=== PATIENT | male | born 1985 | race African-American/Black ===

== ENCOUNTER 2018-04-06 13:00 | Emergency (ER) | payer OTHER, SELFPAY ==
[2018-04-06 13:01] VITALS: BP 153/91; PULSE 87; RESP 14; TEMP 36.7; O2SAT 99; BMI 35.0
--- NOTE | 2018-04-06 13:11 | ED.VISSUMM ---
- ER Visit Summary Date of Service: 04/06/18 Chief Complaint: [] Right fifth finger paronychia for a few days History of Present Illness: The patient is a 32 M [] those symptoms for a few days was seen in urgent care center yesterday started on Keflex no improvement he was supposed to soak the finger it sounds like he really did not soak it much comes in complaining of persistent pain he has no history of MRSA in his other complaints no trauma on exam his general medical exam is unremarkable see the template head neck chest unremarkable his right fifth digit laterally there is an obvious paronychia there. The IP joint has flexion extension as does the PIP joint the pad of the finger is uninvolved this appears to be restricted to the lateral nail fold indicates this all began a few days ago he pulled a hangnail he is not prone to infections Physical Examination: [] see above, I explained I&D to him he agreed he underwent digital block sterile prep and then I&D with no difficulty he will continue the Keflex warm soaks he will follow-up with his family doctor or Dr. Wilcox automation control technician for orthopedics and return for change in symptoms Test Results: [] Emergency Department Course and Treatment: [] Treatment Plan: [] Disposition: [] Home stable Impression: [] Fifth finger paronychia status post I&D This note was generated with [employer] dictation software. It may contain incorrect words, spelling, and punctuation that were not noted in review of the chart prior to signing ED Disposition - Plan for ED Patient: Chief Complaint: Cellulitis Referrals: Alireza Duque MD [Primary Care Provider] -
--- NOTE | 2018-04-06 13:17 | ED.DEP ---
ED Disposition - Plan for ED Patient: Chief Complaint: Cellulitis Instructions: ED Abscess IandD, ED Paronychia Ch Referrals: Alireza Duque MD [Primary Care Provider] - Tip Wilcox MD [STAFF PHYSICIAN] -
[2018-04-06 13:52] VITALS: BP 121/74; PULSE 67; RESP 16
== END 2018-04-06 13:56 | disposition home or self-care (01) ==
LOC: ED 13:56
PROVIDERS: Emergency Provider Emergency Medicine; Family Provider Family Medicine; PCP Family Medicine
DX: L03.011 Cellulitis of right finger (principal)
CPT/HCPCS: 10060; 99282

== ENCOUNTER 2018-04-17 20:46 | Emergency (ER) | payer OTHER, SELFPAY ==
[2018-04-17 20:47] VITALS: BP 136/71; PULSE 85; RESP 22; TEMP 36.8; O2SAT 98; BMI 32.7
--- NOTE | 2018-04-17 21:36 | ED.DEP ---
ED Disposition - Plan for ED Patient: Disposition: Home or Assisted Living Chief Complaint: Eye Problem Instructions: ED Allergic Conjunctivitis Prescriptions: Naphazoline HCl/Phenir Mal [Naphcon-A Eye Drops] 2 drp LEFT EYE 4X/DAY #1 bottle Referrals: Nando Lin MD [STAFF PHYSICIAN] - 3-5 Days if not improving Additional Instructions: [id number] up with eye Dr if not getting better May use the tetracaine drops for next 24 hours. No longer because they retard healing. Naphcon A eye drops for allergies.
[2018-04-17] MEDS: Tetracaine 0.5% Ophthalmic Bottle 5 DRP LEFT EYE (21:53)
--- NOTE | 2018-04-17 23:49 | ED.DCSUM_ITS ---
- ER Visit Summary Date of Service: 04/17/18 Chief Complaint: Left eye watering and itching. History of Present Illness: The patient is a 32 M no significant past history. He does have hypertension and ADHD. Patient states that he has had left eye discomfort since yesterday. Thought he may have gotten some dirt in it. Says he is having clear watering of his eye. No matting. No fever. No known trauma. He wears glasses intermittently. No contacts. Physical Examination: Well-appearing young male. Vital signs are stable afebrile. HEENT exam left eye is watering. There is minimal swelling. Minimal erythema. Slit-lamp examination was performed. I did not see any obvious foreign body or any obvious corneal abrasion. There is a national shortage of floor seen so his eye could not be sustained. Extraocular motions are intact. There is no signs of globe rupture or an irregular pupil. Both the upper and lower lids were everted. MRI unremarkable without trauma or foreign body. Test Results: None Emergency Department Course and Treatment: History and exam are consistent with a allergic conjunctivitis most likely from seasonal allergies. Treatment Plan: Naphcon-A eyedrops to help with the allergic conjunctivitis. Disposition: Discharge Impression: Conjunctivitis felt to be secondary to allergic This note was generated with [employer] dictation software. It may contain incorrect words, spelling, and punctuation that were not noted in review of the chart prior to signing ED Disposition - Plan for ED Patient: Disposition: Home or Assisted Living Chief Complaint: Eye Problem Instructions: ED Allergic Conjunctivitis Prescriptions: Naphazoline HCl/Phenir Mal [Naphcon-A Eye Drops] 2 drp LEFT EYE 4X/DAY #1 bottle Referrals: Nando Lin MD [STAFF PHYSICIAN] - 3-5 Days if not improving Additional Instructions: [id number] up with eye Dr if not getting better May use the tetracaine drops for next 24 hours. No longer because they retard healing. Naphcon A eye drops for allergies.
== END 2018-04-17 21:55 | disposition home or self-care (01) ==
PROVIDERS: Emergency Provider Emergency Medicine; Family Provider Family Medicine; PCP Family Medicine
DX: H10.12 Acute atopic conjunctivitis, left eye (principal); I10 Essential (primary) hypertension; F90.9 Attention-deficit hyperactivity disorder, unspecified type
CPT/HCPCS: 99283

== ENCOUNTER 2018-11-16 19:42 | Emergency (ER) | payer OTHER, SELFPAY ==
[2018-11-16 19:45] VITALS: BP 151/100; PULSE 103; PULSE 95; RESP 18; TEMP 36.8; O2SAT 95; BMI 42.2
--- NOTE | 2018-11-16 20:07 | ED.DCSUM_ITS ---
- ER Visit Summary Date of Service: 11/16/18 Chief Complaint: Sore throat History of Present Illness: The patient is a 32 M who presents with a sore throat and right ear pain that has been getting worse over the past week. Patient states he started taking some amoxicillin that he had leftover from a prior prescription. Patient states he has only taken this for 1 day. Patient states the pain is worse. Patient also admits to headache. Patient states he is coughing up some yellow and brown sputum. Patient states he did have an episode of blood-streaked hemoptysis yesterday. Patient admits to subjective fevers. Physical Examination: Vital signs are stable except for an elevated blood pressure 151/100. Patient is afebrile here. Patient is in no acute distress. The right tympanic membrane is erythematous. Left tympanic membrane is clear. Oral mucosa is pink and moist. Oropharynx is mildly erythematous. There are no exudates on the tonsils. There is some edema of the oropharynx but the airway is patent. There is no tenderness over the frontal or maxillary sinuses. Neck is supple. Trachea is midline. There is tender anterior cervical lymphadenopathy noted. Heart was regular rate and rhythm. Lungs are clear and equal bilateral. The remaining physical exam is within normal limits. Emergency Department Course and Treatment: Patient was given a dose of prednisone and amoxicillin here. Patient was given prescriptions for prednisone and amoxicillin. Patient was instructed to finish the prescriptions until gone. Patient was instructed to follow-up with a primary care physician in 5-7 days. Patient understood and was agreeable with the plan. All questions were answered. Disposition: Discharge home Impression: 1. Right otitis media 2. Pharyngitis This note was generated with [employer] dictation software. It may contain incorrect words, spelling, and punctuation that were not noted in review of the chart prior to signing ED Disposition - Plan for ED Patient: Disposition: Home or Assisted Living Chief Complaint: Sore Throat Diagnosis: Right otitis media, Pharyngitis Instructions: ED Otitis Media Acute Adult, ED Strep Pharyngitis Poss Prescriptions: Amoxicillin [Amoxil] 500 mg PO Q8H 10 Days #30 cap predniSONE tablet 60 mg PO DAILY #15 tab Referrals: Alireza Duque MD [Primary Care Provider] - Additional Instructions: Take all prescriptions as directed until gone.
[2018-11-16] MEDS: predniSONE 20 MG Tablet 60 MG PO (20:11)
[2018-11-16] MEDS: AMOXICILLIN 500 MG CAPSULE PO (20:11)
--- OUTSIDE RECORDS SUMMARY | 2019-02-18 13:55 | XMS RPT_ITS ---
:1985 Author Organization OHIP Care Team Providers Name Role Phone ASHLY PEÑA (MERRITT-S) Attending Unavailable KRISTY DICKSON (STEPHANIE) Attending Unavailable KRISTY DICKSON (ENGINEERING INSPECTION ASSISTANT) Attending Unavailable KRISTY DICKSON (ENGINEERING INSPECTION ASSISTANT) Attending Unavailable CARLEE ARMAS Attending Unavailable CARLEE ARMAS Referring Unavailable TUAN RABAGO Attending Unavailable CAROLINA KIM (STEPHANIE) Attending Unavailable TERESE DODD Attending Unavailable CARLEE AMRAS Referring Unavailable CARLEE ARMAS Attending Unavailable CARLEE ARMAS Referring Unavailable CARLEE ARMAS Attending Unavailable CARLEE ARMAS Referring Unavailable CARLEE ARMAS Referring Unavailable ARMAS, CARLEE S Referring Unavailable ARMAS, CARLEE S Referring Unavailable TANIA, NICOLE Bales (RES) Attending Unavailable ARMAS, CARLEE S Referring Unavailable ARMAS, CARLEE S Attending Unavailable ARMAS, CARLEE S Referring Unavailable TANIA, NICOLE C (RES) Referring Unavailable TANIA, NICOLE Bales (RES) Attending Unavailable GALDINO, CARLEE S Referring Unavailable TANIA, NICOLE Bales (RES) Referring Unavailable Delmar Osman Attending Unavailable Primay Care Physicia, No Primary Care Unavailable Alireza Duque Primary Care Unavailable Uyen Brown Attending Unavailable Alireza Duque Primary Care Unavailable Nahum Simpson Attending Unavailable PROBLEMS PROBLEMS DATE TYPE CONDITION / CODE ATTENDING STATUS SOURCE 07/08/2018 Active Other abnormal NA Active [facility] findings in Main [place] specimens from male Repository genital organs / R86.8(ICD-10) 04/24/2018 Active Generalized anxiety SKODA, Active [facility] disorder / KRISTY (ENGINEERING INSPECTION ASSISTANT) Other [place] F41.1(ICD-10) Repository 04/24/2018 Active Major depressive SKODA, Active [facility] disorder, KRISTY (ENGINEERING INSPECTION ASSISTANT) Other [place] recurrent, moderate Repository / F33.1(ICD-10) 04/24/2018 Active Cannabis SKODA, Active [facility] dependence, KRISTY (ENGINEERING INSPECTION ASSISTANT) Other [place] uncomplicated / Repository F12.20(ICD-10) 07/08/2017 Active Testicular NA Active [facility] hypofunction / [place] E29.1(ICD-10) Repository 02/04/2018 Active Unknown / TUAN RABAGO Active [facility] UNK(Unknown) [place] Repository PROCEDURES PROCEDURES No Procedure Records FoundRESULTS RESULTS EMERGENCY DEPARTMENT Observed: 11/16/2018 Status: F Source: [place] SUMMARY 8:10 PM [facility] REPOSITORY [facility] Medical Records Department [address] [place] [address] Emergency Department Summary 11/16/182001 MR#: [id number] Acct: [id number] Name: RUSS MCLAUGHLIN Rep #: [id number] : 1985 32 From: Delmar Osman DO PCP: Alireza Duque MD Status: PRE ER - ER Visit Summary Date of Service: 11/16/18 Chief Complaint: Sore throat History of Present Illness: The patient is a 32 M who presents with a sore throat and right ear pain that has been getting worse over the past week. Patient states he started taking some amoxicillin that he had leftover from a prior prescription. Patient states he has only taken this for 1 day. Patient states the pain is worse. Patient also admits to headache. Patient states he is coughing up some yellow and brown sputum. Patient states he did have an episode of blood-streaked hemoptysis yesterday. Patient admits to subjective fevers. Physical Examination: Vital signs are stable except for an elevated blood pressure 151/100. Patient is afebrile here. Patient is in no acute distress. The right tympanic membrane is erythematous. Left tympanic membrane is clear. Oral mucosa is pink and moist. Oropharynx is mildly erythematous. There are no exudates on the tonsils. There is some edema of the oropharynx but the airway is patent. There is no tenderness over the frontal or maxillary sinuses. Neck is supple. Trachea is midline. There is tender anterior cervical lymphadenopathy noted. Heart was regular rate and rhythm. Lungs are clear and equal bilateral. The remaining physical exam is within normal limits. Emergency Department Course and Treatment: Patient was given a dose of prednisone and amoxicillin here. Patient was given prescriptions for prednisone and amoxicillin. Patient was instructed to finish the prescriptions until gone. Patient was instructed to follow-up with a primary care physician in 5-7 days. Patient understood and was agreeable with the plan. All questions were answered. Disposition: Discharge home Impression: 1. Right otitis media 2. Pharyngitis This note was generated with DashLuxe dictation software. It may contain incorrect words, spelling, and punctuation that were not noted in review of the chart prior to signing ED Disposition - Plan for ED Patient: Disposition: Home or Assisted Living Chief Complaint: Sore Throat Diagnosis: Right otitis media, Pharyngitis Instructions: ED Otitis Media Acute Adult, ED Strep Pharyngitis Poss Prescriptions: Amoxicillin [Amoxil] 500 mg PO Q8H 10 Days #30 cap predniSONE tablet 60 mg PO DAILY #15 tab Referrals: Alireza Duque MD [Primary Care Provider] - Additional Instructions: Take all prescriptions as directed until gone. What to do if you have Problems For any increased pain, shortness of breath, bleeding, nausea or vomiting, chest pain, or any unexpected problems, contact your Primary Care Provider. Call [facility] ([phone]) or report to the closest Emergency Room. Call 911 if necessary. 11/16/182009 <Electronically signed by Delmar Osman DO> Date Delmar Osman DO Cosigner Signature (If Indicated): Date CC: Alireza Duque MD HOSP Observed: 10/14/2018 Status: COMPLETED Source: [place] 12:00 AM [facility] RUSS MCLAUGHLIN ([id number]) 1985 M Date Time Provider Department 10/14/18 KRISTY DICKSON ([facility] During your visit today, we recorded the following information about you: Allergies As of Date: 10/14/2018 Noted Allergy Reaction LATEX 08/25/2005 4 - Hives a AND d ointment [Other] 08/30/2005 NARCOTICS (OPIOIDS - MORPHINE RICARDA*09/25/2017 11 - Vomiting PERCOCET (OXYCODONE-ACETAMINOPHEN)09/25/2017 5 - Intolerance 14 - Other: See Comments VICODIN (HYDROCODONE-ACETAMINOPHE*09/25/2017 5 - Intolerance 11 - Vomiting Date Reviewed: 07/14/2018 Reviewed by: Tiana Reza - Fully Assessed Prescriptions as of 10/14/2018 Sig: SERTRALINE 100 MG TABLET Take 1.5 tablets by mouth onc* CLOMIPHENE CITRATE 50 MG TABL* Take 0.5 tablets by mouth jose antonio* ONDANSETRON 4 MG DISINTEGRATI* Take 1 tablet by mouth every * POTASSIUM CHLORIDE ER 20 MEQ * Take 1 tablet by mouth once d* SILDENAFIL (ANTIHYPERTENSIVE)* 3-5 tabs po prn Problem List As Of Date 10/14/2018 Noted Resolved Gynecomastia [N62] 04/02/2018 History of chlamydia [Z86.19] Primary hypogonadism in male [E29.1] Class 2 obesity due to excess calories without *INVALID FOR* Encounter Status:Closed by SHANNA PEDRAZA on 10/15/18 PROGRESS Observed: 09/24/2018 Status: COMPLETED Source: [place] 2:48 PM [facility] REPOSITORY HNO ID: [id number] Author: Natasha Monaco Service: (none) Author Type: Supervisor Communications And Signals Type: Progress Notes Filed: 09/24/2018 2:50 PM Note Text: Patient has wants Dr. Duque removed as his PCP. He states he going to [facility] to Dr. Armas. Natasha Monaco MA PROGRESS Observed: 09/22/2018 Status: COMPLETED Source: [place] 1:34 PM [facility] REPOSITORY HNO ID: [id number] Author: Russ Duque Service: (none) Author Type: Physician Type: Progress Notes Filed: 09/22/2018 1:34 PM Note Text: Orders placed. PROGRESS Observed: 09/22/2018 Status: COMPLETED Source: [place] 12:57 PM [facility] REPOSITORY HNO ID: [id number] Author: Natasha Monaco Service: (none) Author Type: Supervisor Communications And Signals Type: Progress Notes Filed: 09/24/2018 2:50 PM Note Text: JAVI TEAMRYANN DOCUMENTATION Provider Action/FYI: Patient needs appointment, needs labs ordered PSR Action/FYI: Schedule appointment Dr. Neto Guerrero has identified patient by name and date of . Team: Dr. Duque, Natasha Monaco MA ? Last Office Visit:08/13/2018 ? Next Office Visit: Visit date not found ? Last BP/Labs: Blood Pressure: Last 3 Encounter BP Readings: Date: BP: 07/14/2018 141/93 06/09/2018 117/87 06/09/2018 130/75 Lipids: Cholesterol, Total (mg/dL) Date Value 07/03/2017 139 HDL Cholesterol (mg/dL) Date Value 07/03/2017 32 LDL Cholesterol (mg/dL) Date Value 07/03/2017 81 Triglyceride (mg/dL) Date Value 07/03/2017 131 HGB A1C: No results found for: HBA1C TSH: TSH (uU/mL) Date Value 07/03/2017 1.400 ) Care Gap: HTN - Last BP NOT under 140/90 Plan: ? Confirm PCP / Status ? Type of appointment needed: Follow-up ? Consultation Appointments: No patient outreach needed at this time ? Labs, HM and Immunization: Labs: CMP HGB A1C Lipid Natasha Monaco MA CNPTOUTREACH Observed: 09/22/2018 Status: COMPLETED Source: [place] 12:00 AM [facility] REPOSITORY Patient Outreach ([facility]) RUSS MCLAUGHLIN ([id number]) 1985 M Date Time Provider Department 09/22/18 NATASHA MONACO) FAMP[facility] During your visit today, we recorded the following information about you: Natasha Monaco MA 09/24/2018 2:50 PM Signed PHMA TEAMLET DOCUMENTATION Provider Action/FYI: Patient needs appointment, needs labs ordered PSR Action/FYI: Schedule appointment Dr. Neto Guerrero has identified patient by name and date of . Team: Natasha Robles MA ? Last Office Visit:08/13/2018 ? Next Office Visit: Visit date not found ? Last BP/Labs: Blood Pressure: Last 3 Encounter BP Readings: Date: BP: 07/14/2018 141/93 06/09/2018 117/87 06/09/2018 130/75 Lipids: Cholesterol, Total (mg/dL) Date Value 07/03/2017 139 HDL Cholesterol (mg/dL) Date Value 07/03/2017 32 LDL Cholesterol (mg/dL) Date Value 07/03/2017 81 Triglyceride (mg/dL) Date Value 07/03/2017 131 HGB A1C: No results found for: HBA1C TSH: TSH (uU/mL) Date Value 07/03/2017 1.400 ) Care Gap: HTN - Last BP NOT under 140/90 Plan: ? Confirm PCP / Status ? Type of appointment needed: Follow-up ? Consultation Appointments: No patient outreach needed at this time ? Labs, HM and Immunization: Labs: CMP HGB A1C Lipid DAVON Kam MD 09/22/2018 1:34 PM Signed Orders placed. Natasha Monaco MA 09/24/2018 2:50 PM Signed Patient has wants Dr. Duque removed as his PCP. He states he going to [facility] to Dr. Armas. Natasha Monaco MA Allergies As of Date: 09/22/2018 Noted Allergy Reaction LATEX 08/25/2005 4 - Hives a AND d ointment [Other] 08/30/2005 NARCOTICS (OPIOIDS - MORPHINE RICARDA*09/25/2017 11 - Vomiting PERCOCET (OXYCODONE-ACETAMINOPHEN)09/25/2017 5 - Intolerance 14 - Other: See Comments VICODIN (HYDROCODONE-ACETAMINOPHE*09/25/2017 5 - Intolerance 11 - Vomiting Date Reviewed: 07/14/2018 Reviewed by: Tiana Herrera) Libia - Fully Assessed Reason for Visit: PHMA/Care Gap Outreach [[id number]] Primary Visit Diagnosis:Screening for diabetes mellitus [Z13.1] Other Visit Diagnosis:Screening for hyperlipidemia [Z13.220] Prescriptions as of 09/22/2018 Sig: SERTRALINE 100 MG TABLET Take 1.5 tablets by mouth onc* CLOMIPHENE CITRATE 50 MG TABL* Take 0.5 tablets by mouth jose antonio* ONDANSETRON 4 MG DISINTEGRATI* Take 1 tablet by mouth every * POTASSIUM CHLORIDE ER 20 MEQ * Take 1 tablet by mouth once d* QUETIAPINE 25 MG TABLET Take 1 tablet by mouth at bed* LISDEXAMFETAMINE 50 MG CAPSULE Take 1 capsule by mouth once * SILDENAFIL (ANTIHYPERTENSIVE)* 3-5 tabs po prn Problem List As Of Date 09/22/2018 Noted Resolved Gynecomastia [N62] 04/02/2018 History of chlamydia [Z86.19] Primary hypogonadism in male [E29.1] Class 2 obesity due to excess calories without *INVALID FOR* Encounter Status:Closed by NATASHA MONACO on 09/24/18 PROGRESS Observed: 08/01/2018 Status: COMPLETED Source: [place] 12:45 PM [facility] REPOSITORY HNO ID: [id number] Author: Natasha Duarte (Davon) Jacinda Service: (none) Author Type: Supervisor Communications And Signals Type: Progress Notes Filed: 08/01/2018 12:46 PM Note Text: Patient has appointment 08-13-[address] Duque. ENDTZ TEST Collected: 07/31/2018 Status: F Source: [place] 12:15 PM [facility] REPOSITORY TYPE CODE TESTS RESULT OUT OF REFERENCE UNITS RANGE LAB ENDTZ 0.0-0.1 M/mL High Endtz 0.8 Test SPERM DIFF (WHO) Collected: 07/31/2018 Status: F Source: [place] 12:15 PM [facility] REPOSITORY TYPE CODE TESTS RESULT OUT OF REFERENCE UNITS RANGE LAB NRMSP 14-100 % Low % Normal 0 Sperm Result Comment: [facility] Testing performed at [facility]. Contact Dr. Darrell Bah, PhD, [facility] for any questions ([phone]). LAB AMORSP 0-11 % High % Amorphous Sperm 48 LAB SMALSP 0-15 % % Small Sperm 1 LAB ABNTLS % % Abnormal Tails 51 EOSIN NIGROSIN EXC Collected: 07/31/2018 Status: F Source: [place] 12:15 PM [facility] REPOSITORY TYPE CODE TESTS RESULT OUT OF REFERENCE UNITS RANGE LAB ENSTN >58 % 60 Eosin/Nigros in Stn LAB SLNMEN Slide No. [id number] E/NSTN DIR SPERM AB IGA/IGG Collected: 07/31/2018 Status: F Source: [place] [facility] 12:15 PM [facility] PATI[facility] ONLY REPOSITORY TYPE CODE TESTS RESULT OUT OF REFERENCE UNITS RANGE LAB ABIND % IgA Percent 8 Binding LAB AAREA Area of TAILS Involv (IgA) LAB GBIND % IgG Percent 0 Binding ROUT ANALYSIS SEMEN Collected: 07/31/2018 Status: F Source: [place] 12:15 PM [facility] REPOSITORY TYPE CODE TESTS RESULT OUT OF REFERENCE UNITS RANGE LAB SEMVOL >1.5 mL Semen 2.0 Volume Result Comment: Testing performed at [facility]. Contact Dr. Darrell Bah, PhD, [facility] for any questions ([phone]). LAB SEMPH >7.2 Semen pH 7.6 LAB CONCEN >15 M/mL Concentration 20.10 LAB PCTMOT >40 % % Motile Sperm Low 7 LAB TOTCNT M Total Count Sperm 40.20 LAB TOTMT M Total Motile Sperm 2.81 LAB FPROG Forward Progression 1 Result Comment: (NOTE) INTERPRETATION: 0 = No motility 1 = Weak, twitching in place 2 = Poor to moderate, erratic 3 = Good motility, unidirectional 4 = Rapid unidirectional LAB NRMOVH >4 % Low Normal Oval 0 Head Result Comment: [facility] ABNHD % Abnormal 100 Head LAB VELOC >46 u/sec Velocity 58.9 LAB LINEAR >58 % Low Linearity 31.0 LAB COMM2 Semen Comment 2 MANUAL COUNT AND MOTILITY USED. LAB SEMCOL Semen Color OPAQUE LAB ROUNDS <1.0 M/mL Undiff 1.32 High Round Cells LAB SEMVIS Semen Viscosity NORMAL LAB SEMAGE 0-60 Min Semen Age 20 LAB CONTIM Days Abstinence 3 Time LAB NUMCNT No. of 840 Cells Counted LAB COLTIM Collection 1215 Time LAB RECTIM Receipt 1216 Time LAB SLNMSR Slide No. Semen Rout [id number] LAB OXRDP <1.36 mV/M Oxid Red 0.87 Pot(Semen) PROGRESS Observed: 07/31/2018 Status: COMPLETED Source: [place] 10:36 AM [facility] REPOSITORY HNO ID: [id number] Author: Natasha Herrera) Jacinda Service: (none) Author Type: Supervisor Communications And Signals Type: Progress Notes Filed: 08/01/2018 12:46 PM Note Text: Unable to leave a message the mailbox is full. PROGRESS Observed: 07/30/2018 Status: COMPLETED Source: [place] 12:40 PM [facility] REPOSITORY HNO ID: [id number] Author: Natasha Monaco Service: (none) Author Type: Supervisor Communications And Signals Type: Progress Notes Filed: 08/01/2018 12:46 PM Note Text: Unable to leave message, mailbox is full. Natasha Monaco MA PROGRESS Observed: 07/28/2018 Status: COMPLETED Source: [place] 3:03 PM [facility] REPOSITORY HNO ID: [id number] Author: Natasha Monaco Service: (none) Author Type: Supervisor Communications And Signals Type: Progress Notes Filed: 08/01/2018 12:46 PM Note Text: PHMA TEAMLET DOCUMENTATION Provider Action/FYI: Patient needs appointment, PSR Action/FYI: schedule appointment Teamlet has identified patient by name and date of . Team: Dr. Duque, Natasha Monaco MA, Ronnie Brown MA ? Last Office Visit:06/17/2018 ? Next Office Visit: Visit date not found ? Last BP/Labs: Blood Pressure: Last 3 Encounter BP Readings: Date: BP: 07/14/2018 141/93 06/09/2018 117/87 06/09/2018 130/75 Lipids: Cholesterol, Total (mg/dL) Date Value 07/03/2017 139 HDL Cholesterol (mg/dL) Date Value 07/03/2017 32 LDL Cholesterol (mg/dL) Date Value 07/03/2017 81 Triglyceride (mg/dL) Date Value 07/03/2017 131 HGB A1C: No results found for: HBA1C TSH: TSH (uU/mL) Date Value 07/03/2017 1.400 ) Care Gap: HTN - Last BP NOT under 140/90 Plan: ? Confirm PCP / Status ? Type of appointment needed: MARIZOL ? Consultation Appointments: No patient outreach needed at this time ? Labs, HM and Immunization: Natasha Monaco MA CNPTOUTREACH Observed: 07/28/2018 Status: COMPLETED Source: [place] 12:00 AM [facility] REPOSITORY Patient Outreach ([facility]) RUSS MCLAUGHLIN ([id number]) 1985 M Date Time Provider Department 07/28/18 NATASHA MONACO) MIKEWS During your visit today, we recorded the following information about you: Natasha Monaco MA 08/01/2018 12:46 PM Signed PHMA TEAMLET DOCUMENTATION Provider Action/FYI: Patient needs appointment, PSR Action/FYI: schedule appointment Teamlet has identified patient by name and date of . Team: Dr. Duque, Natasha Monaco MA, Ronnie Brown MA ? Last Office Visit:06/17/2018 ? Next Office Visit: Visit date not found ? Last BP/Labs: Blood Pressure: Last 3 Encounter BP Readings: Date: BP: 07/14/2018 141/93 06/09/2018 117/87 06/09/2018 130/75 Lipids: Cholesterol, Total (mg/dL) Date Value 07/03/2017 139 HDL Cholesterol (mg/dL) Date Value 07/03/2017 32 LDL Cholesterol (mg/dL) Date Value 07/03/2017 81 Triglyceride (mg/dL) Date Value 07/03/2017 131 HGB A1C: No results found for: HBA1C TSH: TSH (uU/mL) Date Value 07/03/2017 1.400 ) Care Gap: HTN - Last BP NOT under 140/90 Plan: ? Confirm PCP / Status ? Type of appointment needed: MARIZOL ? Consultation Appointments: No patient outreach needed at this time ? Labs, HM and Immunization: DAVON Kam MA 08/01/2018 12:46 PM Signed Unable to leave message, mailbox is full. DAVON Kam MA 08/01/2018 12:46 PM Signed Unable to leave a message the mailbox is full. Natasha Monaco MA 08/01/2018 12:46 PM Signed Patient has appointment 08-13-[address] Duque. Allergies As of Date: 07/28/2018 Noted Allergy Reaction LATEX 08/25/2005 4 - Hives a AND d ointment [Other] 08/30/2005 NARCOTICS (OPIOIDS - MORPHINE RICARDA*09/25/2017 11 - Vomiting PERCOCET (OXYCODONE-ACETAMINOPHEN)09/25/2017 5 - Intolerance 14 - Other: See Comments VICODIN (HYDROCODONE-ACETAMINOPHE*09/25/2017 5 - Intolerance 11 - Vomiting Date Reviewed: 07/14/2018 Reviewed by: Tiana Herrera) Libia - Fully Assessed Reason for Visit: PHMA/Care Gap Outreach [[id number]] Prescriptions as of 07/28/2018 Sig: X SERTRALINE 100 MG TABLET Take 1.5 tablets by mouth onc* CLOMIPHENE CITRATE 50 MG TABL* Take 0.5 tablets by mouth jose antonio* ONDANSETRON 4 MG DISINTEGRATI* Take 1 tablet by mouth every * POTASSIUM CHLORIDE ER 20 MEQ * Take 1 tablet by mouth once d* SILDENAFIL (ANTIHYPERTENSIVE)* 3-5 tabs po prn Problem List As Of Date 07/28/2018 Noted Resolved Gynecomastia [N62] 04/02/2018 History of chlamydia [Z86.19] Primary hypogonadism in male [E29.1] Class 2 obesity due to excess calories without *INVALID FOR* Encounter Status:Closed by NATASHA MONACO on 08/01/18 PROGRESS Observed: 07/14/2018 Status: COMPLETED Source: [place] 1:26 PM [facility] [place] REPOSITORY O ID: [id number] Author: Nicole Hamilton Service: (none) Author Type: Physician Type: Progress Notes Filed: 07/14/2018 2:02 PM Note Text: Established Patient Visit 07/14/2018 HPI: 32 year old male returns for follow up for primary infertility for 4 years. On Clomid 50mg MWF. Doing well, but has gained weight - 20 pounds. Reports much less activity though. Libido and ED has improved. On Zoloft and Seroquel Still performing timed intercourse. PMHx/PSHx: see above, otherwise unchanged Rx: reviewed and unchanged ROS: see above, otherwise unchanged Labs: Component Latest Ref Rng AND Units 07/08/2018 Prolactin 4.0 - 15.2 ng/mL 10.2 FSH 1.5 - 12.4 mU/mL 16.9 (H) LH 1.8 - 10.8 mU/mL 16.2 (H) Testosterone 193 - 824 ng/dL 892 (H) Prior Semen analyses: Component Latest Ref Rng AND Units 04/21/2018 Semen Volume >1.5 mL 3.4 Semen pH >7.2 7.8 Concentration >15 M/mL 19.20 % Motile Sperm >40 % 16 (L) Total Count Sperm M 65.28 Total Motile Sperm M 10.44 Forward Progression ? 3 Normal Oval Head >4 % 1 (L) Abnormal Head % 99 Velocity >46 u/sec 66.5 Linearity >58 % 42.0 (L) Semen Comment 2 ? CASA COUNT VERIFIED MANUALLY, MANUAL MOTILITY USED. MILD SPERM AGGLUTINATION SEEN . . . Color, Semen ? OPAQUE Undiff Rnd Cell Rout Semen Anl <1.0 M/mL 0.85 Semen Viscosity ? SLIGHT Semen Age 0 - 60 Min 25 Abstinence Time, Semen Days 3 Number Counted ? 747 Collection Time ? 1,310 Receipt Time ? 1,311 Slide No. Semen Rout ? [id number] Oxid Red Potential in Semen <1.36 mV/M Account Credited % Normal Sperm 14 - 100 % 3 (L) % Amorphous Sperm 0 - 11 % 37 (H) % Small Sperm 0 - 15 % 15 % Abnormal Tails % 44 Rounds Per 100 Sperm 0 - 3 /100SPM 1 Eosin/Nigrosin Stn >58 % 48 (L) Slide No. E/NSTN ? [id number] Endtz 0.0 - 0.1 M/mL 0.8 (H) ? 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 All medications reviewed. Low motility on SA. +smoking, pyospermia. ? Plan: - Symptomatic hypogonadism: On Clomid 50mg MWF, will decrease dose to 25mg MWF - Repeat SA with antibodies - f/u on Mychart Atul Logan MD I interviewed and examined this patient and we discussed the recommendations in detail. I agree with the findings and plan documented in his note. Visit duration 25 minutes with approximately 50% of time in counseling. Atul Logan MD CNOV Observed: 07/14/2018 Status: COMPLETED Source: [place] 1:00 PM [facility] REPOSITORY Office Visit (UROLMN) RUSS MCLAUGHLIN ([id number]) 1985 M Date Time Provider Department 07/14/18 1:00 PM NICOLE HAMILTON During your visit today, we recorded the following information about you: Temperature Pulse Blood pressure Weight 97.9 degrees 83/minute 141/93 123.2 kg Height 1.94 m Nicole Hamilton MD 07/14/2018 2:02 PM Signed Established Patient Visit 07/14/2018 HPI: 32 year old male returns for follow up for primary infertility for 4 years. On Clomid 50mg MWF. Doing well, but has gained weight - 20 pounds. Reports much less activity though. Libido and ED has improved. On Zoloft and Seroquel Still performing timed intercourse. PMHx/PSHx: see above, otherwise unchanged Rx: reviewed and unchanged ROS: see above, otherwise unchanged Labs: Component Latest Ref Rng AND Units 07/08/2018 Prolactin 4.0 - 15.2 ng/mL 10.2 FSH 1.5 - 12.4 mU/mL 16.9 (H) LH 1.8 - 10.8 mU/mL 16.2 (H) Testosterone 193 - 824 ng/dL 892 (H) Prior Semen analyses: Component Latest Ref Rng AND Units 04/21/2018 Semen Volume >1.5 mL 3.4 Semen pH >7.2 7.8 Concentration >15 M/mL 19.20 % Motile Sperm >40 % 16 (L) Total Count Sperm M 65.28 Total Motile Sperm M 10.44 Forward Progression ? 3 Normal Oval Head >4 % 1 (L) Abnormal Head % 99 Velocity >46 u/sec 66.5 Linearity >58 % 42.0 (L) Semen Comment 2 ? CASA COUNT VERIFIED MANUALLY, MANUAL MOTILITY USED. MILD SPERM AGGLUTINATION SEEN . . . Color, Semen ? OPAQUE Undiff Rnd Cell Rout Semen Anl <1.0 M/mL 0.85 Semen Viscosity ? SLIGHT Semen Age 0 - 60 Min 25 Abstinence Time, Semen Days 3 Number Counted ? 747 Collection Time ? 1,310 Receipt Time ? 1,311 Slide No. Semen Rout ? [id number] Oxid Red Potential in Semen <1.36 mV/M Account Credited % Normal Sperm 14 - 100 % 3 (L) % Amorphous Sperm 0 - 11 % 37 (H) % Small Sperm 0 - 15 % 15 % Abnormal Tails % 44 Rounds Per 100 Sperm 0 - 3 /100SPM 1 Eosin/Nigrosin Stn >58 % 48 (L) Slide No. E/NSTN ? [id number] Endtz 0.0 - 0.1 M/mL 0.8 (H) ? 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 All medications reviewed. Low motility on SA. +smoking, pyospermia. ? Plan: -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 and my own well being for others, beat myself up too much, lack trust. Don't trust well at all. MENTAL STATUS SCREEN: -General appearance: casually dressed and neatly groomed -Attitude toward evaluation: Cooperative and agreeable -Eye contact: good -Motor activity: Appropriate for age and event -Interview behavior: unremarkable -Orientation: Person, Place, Time and Situation -Memory: Recent intact, Remote intact and Immediate intact -Mood: guilty, expansive and anxious -Affect: appropriate to content, Euthymic and tearful at times. -Speech:Normal in rate, volume and prosody -Thought process: The thought process is appropriate for situation -Intellect: Above average -Insight into problems: demonstrates fair insight and extent of denial 1, believes he can give up MJ and alcohol when I put my mind to it. -Lethality to self/others? LOW -Hallucinations? None -Homicidal ideation? None -Paranoia: Yes sometimes; if I'm selling pot. Some feelings of persecution, people are out to get me. -Delusion: No Urine sample for drug screen (and hcg if female of childbearing age) collected? Yes DEGREE OF SEVERITY: see attached sheet DANIELLE Toure Intake Counselor 04/21/2018 IMPRESSIONS: DSM IV-TR diagnoses Boyd I: Alcohol Abuse 1, Cannabis Dependence 1, Bipolar Aff, Mixed-Full Remission and Post Traumatic Stress Disorder Boyd II: Deferred Boyd III: ACTIVE PROBLEM LIST History of Chlamydia Primary Hypogonadism in Male Class 2 Obesity Due to Excess Calories Without Serious Comorbidity With Body Mass Index (Bmi) of 35.0 to 35.9 in Adult Boyd IV: of family member, worries about family's well being, Stressful work situation and Relationship conflict Boyd V: 50-41: Serious symptoms or impairment. INITIAL PLAN/RECOMMENDATIONS: 1. PT is referred to [facility] IOP. 2. PT should abstain from all substances. 3. PT was provided with appt with Kristy Dickson for medication follow up on 04/24/18. 4. PT was encouraged to begin attending 12 step meetings MARIZOL. 5. FATMATA obtained to FAX copy of assessment to [facility]. Formulation of Suicide Risk: PT does not endorse SI at this time. DISPOSITION: Risks, Benefits, Alternatives, and personnel discussed with patient who consents/agrees to proceed (R/B/A/P/C). DANIELLE Toure DATE: 04/21/2018 DISCHARGE INSTRUCTION Observed: 04/18/2018 Status: F Source: [place] 12:30 AM [facility] REPOSITORY [facility] Medical Records Department [address] [place] [address] Discharge Instruction 04/17/18 2136 MR#: [id number] Acct: [id number] Name: RUSS MCLAUGHLIN Rep #: [id number] : 1985 32 From: Nahum Simpson MD PCP: Alireza Duque MD Status: DEP ER ED Disposition - Plan for ED Patient: Disposition: Home or Assisted Living Chief Complaint: Eye Problem Instructions: ED Allergic Conjunctivitis Prescriptions: Naphazoline HCl/Phenir Mal [Naphcon-A Eye Drops] 2 drp LEFT EYE 4X/DAY #1 bottle Referrals: Nando Lin MD [STAFF PHYSICIAN] - 3-5 Days if not improving Additional Instructions: [id number] up with eye Dr if not getting better May use the tetracaine drops for next 24 hours. No longer because they retard healing. Naphcon A eye drops for allergies. What to do if you have Problems For any increased pain, shortness of breath, bleeding, nausea or vomiting, chest pain, or any unexpected problems, contact your Primary Care Provider. Call [facility] ([phone]) or report to the closest Emergency Room. Call 911 if necessary. 04/18/18 0030 <Electronically signed by Nahum Simpson MD> Date Nahum Simpson MD Cosigner Signature (If Indicated): Date CC: Alireza Duque MD EMERGENCY DEPARTMENT Observed: 04/18/2018 Status: F Source: [place] SUMMARY 12:30 AM [facility] REPOSITORY [facility] Medical Records Department [address] [place] [id number] Emergency Department Summary 04/17/18 2347 MR#: [id number] Acct: [id number] Name: RUSS MCLAUGHLIN Rep #: [id number] : 1985 32 From: Nahum Simpson MD PCP: Alireza Duque MD Status: DEP ER - ER Visit Summary Date of Service: 04/17/18 Chief Complaint: Left eye watering and itching. History of Present Illness: The patient is a 32 M no significant past history. He does have hypertension and ADHD. Patient states that he has had left eye discomfort since yesterday. Thought he may have gotten some dirt in it. Says he is having clear watering of his eye. No matting. No fever. No known trauma. He wears glasses intermittently. No contacts. Physical Examination: Well-appearing young male. Vital signs are stable afebrile. HEENT exam left eye is watering. There is minimal swelling. Minimal erythema. Slit-lamp examination was performed. I did not see any obvious foreign body or any obvious corneal abrasion. There is a national shortage of floor seen so his eye could not be sustained. Extraocular motions are intact. There is no signs of globe rupture or an irregular pupil. Both the upper and lower lids were everted. MRI unremarkable without trauma or foreign body. Test Results: None Emergency Department Course and Treatment: History and exam are consistent with a allergic conjunctivitis most likely from seasonal allergies. Treatment Plan: Naphcon-A eyedrops to help with the allergic conjunctivitis. Disposition: Discharge Impression: Conjunctivitis felt to be secondary to allergic This note was generated with DashLuxe dictation software. It may contain incorrect words, spelling, and punctuation that were not noted in review of the chart prior to signing ED Disposition - Plan for ED Patient: Disposition: Home or Assisted Living Chief Complaint: Eye Problem Instructions: ED Allergic Conjunctivitis Prescriptions: Naphazoline HCl/Phenir Mal [Naphcon-A Eye Drops] 2 drp LEFT EYE 4X/DAY #1 bottle Referrals: Nando Lin MD [STAFF PHYSICIAN] - 3-5 Days if not improving Additional Instructions: [id number] up with eye Dr if not getting better May use the tetracaine drops for next 24 hours. No longer because they retard healing. Naphcon A eye drops for allergies. What to do if you have Problems For any increased pain, shortness of breath, bleeding, nausea or vomiting, chest pain, or any unexpected problems, contact your Primary Care Provider. Call [facility] ([phone]) or report to the closest Emergency Room. Call 911 if necessary. 04/18/18 0030 <Electronically signed by Nahum Simpson MD> Date Nahum Simpson MD Cosigner Signature (If Indicated): Date CC: Alireza Duque MD PROGRESS Observed: 04/17/2018 Status: COMPLETED Source: [place] 10:38 AM [facility] REPOSITORY O ID: [id number] Author: Carlee Armas Service: (none) Author Type: Physician Type: Progress Notes Filed: 04/17/2018 10:50 AM Note Text: Russ Mclaughlin is here today for a following for weight management. S: Being followed for the following comorbidities: Other gynecomastia Ion phentermine 37.5 mg/dTolerating supplements Seeing dietitian regularly Exercising: about to start, regularly for 60 min per day for 7 days/week. Type of exercise: weights Status of comorbidities: Total weight lost thus far: 25 pounds Started program on : the last BMI'S: Body mass index is 34.61 kg/m?. the last CMP : Glucose (mg/dL) Date Value 07/03/2017 89 Potassium (mmol/L) Date Value 07/03/2017 4.0 Sodium (mmol/L) Date Value 07/03/2017 141 Chloride (mmol/L) Date Value 07/03/2017 101 CO2 (mmol/L) Date Value 07/03/2017 20 Creatinine (mg/dL) Date Value 07/03/2017 0.80 BUN (mg/dL) Date Value 07/03/2017 9 Anion Gap (mmol/L) Date Value 07/03/2017 20 Calcium (mg/dL) Date Value 07/03/2017 9.2 Protein, Total (g/dL) Date Value 07/03/2017 7.0 Albumin (g/dL) Date Value 07/03/2017 4.2 Bilirubin, Total (mg/dL) Date Value 07/03/2017 0.2 Alkaline Phosphatase (U/L) Date Value 07/03/2017 65 AST (U/L) Date Value 07/03/2017 27 ALT (U/L) Date Value 07/03/2017 25 O: BP 133/77 (BP Site: Left Arm, BP Position: Sitting, BP Cuff Size: Large Adult) Pulse 84 Wt 115.8 kg (255 lb 3.2 oz) BMI 34.61 kg/m? AppearanceObese Eyes normal, no erythema Neck Supple, no adenopathy; thyroid symmetric, normal size, no bruits Heart RRR with normal S1 and S2, no murmurs, no gallops, no JVD appreciated Lungs clear to auscultation Abd bowel sounds normoactive, no bruits, soft, non-tender, non-distended, without organomegaly or palpable masses, no tenderness to palpation Extremities Normal, No deformities, No skin discoloration, No edema and Normal pulses bilaterally. Neuro Awake, alert and oriented x 3, No involuntary motions. and Reflexes symmetrical Skin Skin color, texture, turgor normal, no suspicious rashes or lesions comorbidities: ACTIVE PROBLEM LIST History of Chlamydia Primary Hypogonadism in Male Class 2 Obesity Due to Excess Calories Without Serious Comorbidity With Body Mass Index (Bmi) of 35.0 to 35.9 in Adult PLAN: phentermine 37.5 mg/d RTC : 1 month Carlee Armas MD CNOV Observed: 04/17/2018 Status: COMPLETED Source: [place] 9:25 AM [facility] REPOSITORY Office Visit (ENDCMN) RUSS MCLAUGHLIN ([id number]) 1985 M Date Time Provider Department 04/17/18 9:25 AM CARLEE ARMAS ENDCMN During your visit today, we recorded the following information about you: Pulse Blood pressure Weight 84/minute 133/77 115.8 kg Ada Womack LPN 04/17/2018 10:07 AM Signed Thank you for choosing the [facility] Department of Endocrinology, Diabetes and Metabolism. Being able to provide excellent health care has allowed us to be # 3 in the country according to [employer]. Did you know that you need to call 48 hours in advance of your scheduled visit, if you are unable to make your appointment? The [facility] [place] thanks you for your commitment, because patients not showing to their appointment results in a lost opportunity for patients to receive world class health care at the [facility]. To Cancel an appointment, please choose one of the following: - Call the Appointment Call Center at [phone] - From [facility], Go to Appointments ? Cancel Appts If cancelling, consider your need to reschedule to prevent further delays in your care. To Schedule an appointment, please choose one of the following: - Call the Appointment Call Center at [phone] - From [facility], Go to Appointments ? Request an Appt Carlee Armas MD 04/17/2018 10:50 AM Signed Russ Mclaughlin is here today for a following for weight management. S: Being followed for the following comorbidities: Other gynecomastia Ion phentermine 37.5 mg/dTolerating supplements Seeing dietitian regularly Exercising: about to start, regularly for 60 min per day for 7 days/week. Type of exercise: weights Status of comorbidities: Total weight lost thus far: 25 pounds Started program on : the last BMI'S: Body mass index is 34.61 kg/m?. the last CMP : Glucose (mg/dL) Date Value 07/03/2017 89 Potassium (mmol/L) Date Value 07/03/2017 4.0 Sodium (mmol/L) Date Value 07/03/2017 141 Chloride (mmol/L) Date Value 07/03/2017 101 CO2 (mmol/L) Date Value 07/03/2017 20 Creatinine (mg/dL) Date Value 07/03/2017 0.80 BUN (mg/dL) Date Value 07/03/2017 9 Anion Gap (mmol/L) Date Value 07/03/2017 20 Calcium (mg/dL) Date Value 07/03/2017 9.2 Protein, Total (g/dL) Date Value 07/03/2017 7.0 Albumin (g/dL) Date Value 07/03/2017 4.2 Bilirubin, Total (mg/dL) Date Value 07/03/2017 0.2 Alkaline Phosphatase (U/L) Date Value 07/03/2017 65 AST (U/L) Date Value 07/03/2017 27 ALT (U/L) Date Value 07/03/2017 25 O: BP 133/77 (BP Site: Left Arm, BP Position: Sitting, BP Cuff Size: Large Adult) Pulse 84 Wt 115.8 kg (255 lb 3.2 oz) BMI 34.61 kg/m? AppearanceObese Eyes normal, no erythema Neck Supple, no adenopathy; thyroid symmetric, normal size, no bruits Heart RRR with normal S1 and S2, no murmurs, no gallops, no JVD appreciated Lungs clear to auscultation Abd bowel sounds normoactive, no bruits, soft, non-tender, non-distended, without organomegaly or palpable masses, no tenderness to palpation Extremities Normal, No deformities, No skin discoloration, No edema and Normal pulses bilaterally. Neuro Awake, alert and oriented x 3, No involuntary motions. and Reflexes symmetrical Skin Skin color, texture, turgor normal, no suspicious rashes or lesions comorbidities: ACTIVE PROBLEM LIST History of Chlamydia Primary Hypogonadism in Male Class 2 Obesity Due to Excess Calories Without Serious Comorbidity With Body Mass Index (Bmi) of 35.0 to 35.9 in Adult PLAN: phentermine 37.5 mg/d RTC : 1 month MD Carlee Hodges MD 04/17/2018 10:54 AM Signed Addended by: CARLEE ARMAS MD on: 04/17/2018 10:54 AM Modules accepted: Orders Referring Provider: CARLEE ARMAS [[id number]] Allergies As of Date: 04/17/2018 Noted Allergy Reaction LATEX 08/25/2005 4 - Hives a AND d ointment [Other] 08/30/2005 NARCOTICS (OPIOIDS - MORPHINE RICARDA*09/25/2017 11 - Vomiting PERCOCET (OXYCODONE-ACETAMINOPHEN)09/25/2017 5 - Intolerance 14 - Other: See Comments VICODIN (HYDROCODONE-ACETAMINOPHE*09/25/2017 5 - Intolerance 11 - Vomiting Date Reviewed: 04/17/2018 Reviewed by: Carlee Armas - Fully Assessed Reason for Visit: weight management [Other] Rx Refills [128] Reason For Visit History Recorded Primary Visit Diagnosis:Class 1 obesity due to excess calories with serious comorbidity and body mass index (BMI) of 34.0 to 34.9 in adult [E66.09, Z68.34] Other Visit Diagnoses:Explosive personality disorder [F60.3] Primary hypogonadism in male [E29.1] Binge eating disorder [F50.81] Order(s):CONSULT TO PSYCHIATRY [9035] Order #: [id number]: 1 TESTOSTERONE TOTAL [SQTESTO] Order #: [id number] FUTURE SEMEN ANALYSIS COMPL [SQSEMENR] Order #: [id number]: 1 FUTURE lisdexamfetamine (VYVANSE) 50 mg capsuleTake 1 capsule by mouth once daily for 30 days.Disp: 30 capsuleRfl: 0 Prescriptions as of 04/17/2018 Sig: LISDEXAMFETAMINE 50 MG CAPSULE Take 1 capsule by mouth once * SILDENAFIL (ANTIHYPERTENSIVE)* 3-5 tabs po prn ONDANSETRON 4 MG DISINTEGRATI* Take 1 tablet by mouth every * Problem List As Of Date 04/17/2018 Noted Resolved Gynecomastia [N62] 04/02/2018 History of chlamydia [Z86.19] Primary hypogonadism in male [E29.1] Class 2 obesity due to excess calories without *INVALID FOR* Other instructions from your clinician: Thank you for choosing the [facility] Department of Endocrinology, Diabetes and Metabolism. Being able to provide excellent health care has allowed us to be # 3 in the country according to [employer]. Did you know that you need to call 48 hours in advance of your scheduled visit, if you are unable to make your appointment? The [facility] [place] thanks you for your commitment, because patients not showing to their appointment results in a lost opportunity for patients to receive [facility] health care at the [facility]. To Cancel an appointment, please choose one of the following: - Call the Appointment Call Center at [phone] - From [facility], Go to Appointments ? Cancel Appts If cancelling, consider your need to reschedule to prevent further delays in your care. To Schedule an appointment, please choose one of the following: - Call the Appointment Call Center at [phone] - From [facility], Go to Appointments ? Request an Appt Prescriptions ordered this encounter Disp Refills Start End PHENTERMINE 37.5 MG TABLET 30 t* 0 04/17/2018 04/17/2018 Class: Print RX Cmt: bmi 34.6 Route: ORAL Sig: Take 1 tablet by mouth once daily for 30 days. LISDEXAMFETAMINE 50 MG CAPSULE 30 c* 0 04/17/2018 05/17/2018 Class: Print RX Route: ORAL Sig: Take 1 capsule by mouth once daily for 30 days. Medications Discontinued During This Encounter Phentermine HCl 37.5 mg tablet 30 t* 0 04/02/2018 04/17/2018 Class: Print RX Route: ORAL Sig: Take 1 tablet by mouth once daily for 30 days. Disc: Reason for discontinue is not on file. Phentermine HCl 37.5 mg tablet 30 t* 0 04/17/2018 04/17/2018 Class: Print RX Cmt: bmi 34.6 Route: ORAL Sig: Take 1 tablet by mouth once daily for 30 days. Disc: Reason for discontinue is not on file. Encounter Status:Closed by CARLEE ARMAS MD on 04/17/18 EMERGENCY DEPARTMENT Observed: 04/06/2018 Status: F Source: [place] SUMMARY 3:12 PM [facility] REPOSITORY [facility] Medical Records Department [address] [place] [address] Emergency Department Summary 04/06/18 1311 MR#: [id number] Acct: [id number] Name: RUSS MCLAUGHLIN Rep #: [id number] : 1985 32 From: Uyen Brown MD PCP: Alireza Duque MD Status: DEP ER - ER Visit Summary Date of Service: 04/06/18 Chief Complaint: [] Right fifth finger paronychia for a few days History of Present Illness: The patient is a 32 M [] those symptoms for a few days was seen in urgent care center yesterday started on Keflex no improvement he was supposed to soak the finger it sounds like he really did not soak it much comes in complaining of persistent pain he has no history of MRSA in his other complaints no trauma on exam his general medical exam is unremarkable see the template head neck chest unremarkable his right fifth digit laterally there is an obvious paronychia there. The IP joint has flexion extension as does the PIP joint the pad of the finger is uninvolved this appears to be restricted to the lateral nail fold indicates this all began a few days ago he pulled a hangnail he is not prone to infections Physical Examination: [] see above, I explained I AND D to him he agreed he underwent digital block sterile prep and then I AND D with no difficulty he will continue the Keflex warm soaks he will follow-up with his family doctor or Dr. Wilcox manager combination for orthopedics and return for change in symptoms Test Results: [] Emergency Department Course and Treatment: [] Treatment Plan: [] Disposition: [] Home stable Impression: [] Fifth finger paronychia status post I AND D This note was generated with DashLuxe dictation software. It may contain incorrect words, spelling, and punctuation that were not noted in review of the chart prior to signing ED Disposition - Plan for ED Patient: Chief Complaint: Cellulitis Referrals: Alireza Duque MD [Primary Care Provider] - What to do if you have Problems For any increased pain, shortness of breath, bleeding, nausea or vomiting, chest pain, or any unexpected problems, contact your Primary Care Provider. Call [facility] ([phone]) or report to the closest Emergency Room. Call 911 if necessary. 04/06/18 1512 <Electronically signed by Uyen Brown MD> Date Uyen Brown MD Cosigner Signature (If Indicated): Date CC: Alireza Duque MD DISCHARGE INSTRUCTION Observed: 04/06/2018 Status: F Source: [place] 1:18 PM [facility] REPOSITORY [facility] Medical Records Department [address] [place] [address] Discharge Instruction 04/06/18 1317 MR#: [id number] Acct: [id number] Name: RUSS MCLAUGHLIN Rep #: [id number] : 1985 32 From: Uyen Brown MD PCP: Alireza Duque MD Status: PRE ER ED Disposition - Plan for ED Patient: Chief Complaint: Cellulitis Instructions: ED Abscess IandD, ED Paronychia Ch Referrals: Alireza Duque MD [Primary Care Provider] - Tip Wilcox MD [STAFF PHYSICIAN] - What to do if you have Problems For any increased pain, shortness of breath, bleeding, nausea or vomiting, chest pain, or any unexpected problems, contact your Primary Care Provider. Call [facility] ([phone]) or report to the closest Emergency Room. Call 911 if necessary. 04/06/18 1318 <Electronically signed by Uyen Brown MD> Date Uyen Brown MD Cosigner Signature (If Indicated): Date CC: Alireza Duque MD PROGRESS Observed: 04/02/2018 Status: COMPLETED Source: [place] 1:58 PM [facility] REPOSITORY O ID: [id number] Author: Carlee Armas Service: (none) Author Type: Physician Type: Progress Notes Filed: 04/02/2018 2:19 PM Note Text: Russ Mclaughlin is here today for a following for weight management. S: Being followed for the following comorbidities: gynecomastia fixed by surgery in september Exercising: about to start, regularly for 45 min per day for 7 days/week. Type of exercise: walking ok lifting Support at home: y, any stressors at home: n Support at work: y Status of comorbidities: Total weight lost thus far: 21 pounds Started program on : 01/2018 the last BMI'S: Body mass index is 35.28 kg/m?. the last CMP : Glucose (mg/dL) Date Value 07/03/2017 89 Potassium (mmol/L) Date Value 07/03/2017 4.0 Sodium (mmol/L) Date Value 07/03/2017 141 Chloride (mmol/L) Date Value 07/03/2017 101 CO2 (mmol/L) Date Value 07/03/2017 20 Creatinine (mg/dL) Date Value 07/03/2017 0.80 BUN (mg/dL) Date Value 07/03/2017 9 Anion Gap (mmol/L) Date Value 07/03/2017 20 Calcium (mg/dL) Date Value 07/03/2017 9.2 Protein, Total (g/dL) Date Value 07/03/2017 7.0 Albumin (g/dL) Date Value 07/03/2017 4.2 Bilirubin, Total (mg/dL) Date Value 07/03/2017 0.2 Alkaline Phosphatase (U/L) Date Value 07/03/2017 65 AST (U/L) Date Value 07/03/2017 27 ALT (U/L) Date Value 07/03/2017 25 O: physical: BP 137/85 Pulse 71 Wt 118 kg (260 lb 1.6 oz) BMI 35.28 kg/m? Appearance Obese Eyes normal, no erythema Neck Supple, no adenopathy; thyroid symmetric, normal size, no bruits Heart RRR with normal S1 and S2, no murmurs, no gallops, no JVD appreciated Lungs clear to auscultation Abd bowel sounds normoactive, no bruits, soft, non-tender, non-distended, without organomegaly or palpable masses, no tenderness to palpation Extremities Normal, No deformities, No skin discoloration, No edema and Normal pulses bilaterally. Neuro Awake, alert and oriented x 3, No involuntary motions. and Reflexes symmetrical Skin Skin color, texture, turgor normal, no suspicious rashes or lesions A: obesity binge eating PLAN: renew phentermine 37.5 mg/d testosterone prolactin free testosterone now RTC : 1 month Carlee Armas MD CNOV Observed: 04/02/2018 Status: COMPLETED Source: [place] 1:00 PM [facility] REPOSITORY Office Visit (ENDOMN) RUSS MCLAUGHLIN ([id number]) 1985 M Date Time Provider Department 04/02/18 1:00 PM CARLEE ARMAS ENDOMN During your visit today, we recorded the following information about you: Pulse Blood pressure Weight 71/minute 137/85 118 kg Jayne Santana Ma 04/02/2018 1:31 PM Signed Thank you for choosing the [facility] Department of Endocrinology, Diabetes and Metabolism. Being able to provide excellent health care has allowed us to be # 3 in the country according to [employer]. Did you know that you need to call 48 hours in advance of your scheduled visit, if you are unable to make your appointment? The [facility] [place] thanks you for your commitment, because patients not showing to their appointment results in a lost opportunity for patients to receive [facility] health care at the [facility]. To Cancel an appointment, please choose one of the following: - Call the Appointment Call Center at [phone] - From [facility], Go to Appointments ? Cancel Appts If cancelling, consider your need to reschedule to prevent further delays in your care. To Schedule an appointment, please choose one of the following: - Call the Appointment Call Center at [phone] - From [facility], Go to Appointments ? Request an Appt Carlee Armas MD 04/02/2018 2:19 PM Signed Russ Mclaughlin is here today for a following for weight management. S: Being followed for the following comorbidities: gynecomastia fixed by surgery in september Exercising: about to start, regularly for 45 min per day for 7 days/week. Type of exercise: walking ok lifting Support at home: y, any stressors at home: n Support at work: y Status of comorbidities: Total weight lost thus far: 21 pounds Started program on : 01/2018 the last BMI'S: Body mass index is 35.28 kg/m?. the last CMP : Glucose (mg/dL) Date Value 07/03/2017 89 Potassium (mmol/L) Date Value 07/03/2017 4.0 Sodium (mmol/L) Date Value 07/03/2017 141 Chloride (mmol/L) Date Value 07/03/2017 101 CO2 (mmol/L) Date Value 07/03/2017 20 Creatinine (mg/dL) Date Value 07/03/2017 0.80 BUN (mg/dL) Date Value 07/03/2017 9 Anion Gap (mmol/L) Date Value 07/03/2017 20 Calcium (mg/dL) Date Value 07/03/2017 9.2 Protein, Total (g/dL) Date Value 07/03/2017 7.0 Albumin (g/dL) Date Value 07/03/2017 4.2 Bilirubin, Total (mg/dL) Date Value 07/03/2017 0.2 Alkaline Phosphatase (U/L) Date Value 07/03/2017 65 AST (U/L) Date Value 07/03/2017 27 ALT (U/L) Date Value 07/03/2017 25 O: physical: BP 137/85 Pulse 71 Wt 118 kg (260 lb 1.6 oz) BMI 35.28 kg/m? Appearance Obese Eyes normal, no erythema Neck Supple, no adenopathy; thyroid symmetric, normal size, no bruits Heart RRR with normal S1 and S2, no murmurs, no gallops, no JVD appreciated Lungs clear to auscultation Abd bowel sounds normoactive, no bruits, soft, non-tender, non-distended, without organomegaly or palpable masses, no tenderness to palpation Extremities Normal, No deformities, No skin discoloration, No edema and Normal pulses bilaterally. Neuro Awake, alert and oriented x 3, No involuntary motions. and Reflexes symmetrical Skin Skin color, texture, turgor normal, no suspicious rashes or lesions A: obesity binge eating PLAN: renew phentermine 37.5 mg/d testosterone prolactin free testosterone now RTC : 1 month Carlee Armas MD Referring Provider: CARLEE ARMAS [[id number]] Allergies As of Date: 04/02/2018 Noted Allergy Reaction LATEX 08/25/2005 4 - Hives a AND d ointment [Other] 08/30/2005 NARCOTICS (OPIOIDS - MORPHINE RICARDA*09/25/2017 11 - Vomiting PERCOCET (OXYCODONE-ACETAMINOPHEN)09/25/2017 5 - Intolerance 14 - Other: See Comments VICODIN (HYDROCODONE-ACETAMINOPHE*09/25/2017 5 - Intolerance 11 - Vomiting Date Reviewed: 04/02/2018 Reviewed by: Carlee Armas - Fully Assessed Reason for Visit: Recheck [92] Primary Visit Diagnosis:Class 2 obesity due to excess calories without serious comorbidity with body mass index (BMI) of 35.0 to 35.9 in adult [E66.09, Z68.35] Order(s):Phentermine HCl 37.5 mg tabletTake 1 tablet by mouth once daily for 30 days.Disp: 30 tabletRfl: 0 sildenafil, antihypertensive, (REVATIO) 20 mg tablet3- 5 tabs po prnDisp: 90 tabletRfl: 3 Prescriptions as of 04/02/2018 Sig: PHENTERMINE 37.5 MG TABLET Take 1 tablet by mouth once d* SILDENAFIL (ANTIHYPERTENSIVE)* 3-5 tabs po prn ONDANSETRON 4 MG DISINTEGRATI* Take 1 tablet by mouth every * Problem List As Of Date 04/02/2018 Noted Resolved Gynecomastia [N62] 04/02/2018 History of chlamydia [Z86.19] Primary hypogonadism in male [E29.1] Class 2 obesity due to excess calories without *INVALID FOR* Other instructions from your clinician: Thank you for choosing the [facility] Department of Endocrinology, Diabetes and Metabolism. Being able to provide excellent health care has allowed us to be # 3 in the country according to [employer]. Did you know that you need to call 48 hours in advance of your scheduled visit, if you are unable to make your appointment? The [facility] [place] thanks you for your commitment, because patients not showing to their appointment results in a lost opportunity for patients to receive world class health care at the [facility]. To Cancel an appointment, please choose one of the following: - Call the Appointment Call Center at [phone] - From [facility], Go to Appointments ? Cancel Appts If cancelling, consider your need to reschedule to prevent further delays in your care. To Schedule an appointment, please choose one of the following: - Call the Appointment Call Center at [phone] - From [facility], Go to Appointments ? Request an Appt Prescriptions ordered this encounter Disp Refills Start End PHENTERMINE 37.5 MG TABLET 30 t* 0 04/02/2018 05/02/2018 Class: Print RX Route: ORAL Sig: Take 1 tablet by mouth once daily for 30 days. SILDENAFIL (ANTIHYPERTENSIVE) 20 MG * 90 t* 3 04/02/2018 04/02/2018 Class: Print RX Si-5 tabs po prn SILDENAFIL (ANTIHYPERTENSIVE) 20 MG * 90 t* 3 04/02/2018 Class: Med Update Si-5 tabs po prn Medications Discontinued During This Encounter sildenafil, antihypertensive, (REVAT* 90 t* 3 11/01/2017 04/02/2018 Si-5 tabs po prn Indications: ERECTILE DYSFUNCTION Disc: Reason for discontinue is not on file. sildenafil, antihypertensive, (REVAT* 90 t* 3 04/02/2018 04/02/2018 Class: Print RX Si-5 tabs po prn Disc: Reason for discontinue is not on file. Encounter Status:Closed by CARLEE ARMAS MD on 04/02/18 PROGRESS Observed: 02/21/2018 Status: COMPLETED Source: [place] 3:00 PM [facility] REPOSITORY HNO ID: [id number] Author: Terese Dodd Service: (none) Author Type: Physician Type: Progress Notes Filed: 02/23/2018 9:03 PM Note Text: Endocrinology Medical Weight Management Follow-up note Date of Service: 02/21/2018 SUBJECTIVE: Russ Mclaughlin is a 32 year old male who presents today for evaluation of obesity and comorbidities associated with this disease. Russ Mclaughlin identified his weight becoming a problem in childhood. The rate of weight gain was described as gradual over years.The patient has a family history Positive for obesity. He considers an ideal weight to be 210 and has lost 10 lbs since 1 month ago. Russ Mclaughlin has tried self-directed dieting and low calorie diet in the past which has not been successful. Russ Mclaughlin believes that the following may be related to his weight gain:eating the wrong foods, portion size, increased appetite, skipping meals and lack of sleep. He has been seen at [facility] for weight management in the past. The patient saw doctor Galdino on 01/27 and is taking Phentermine and has found it to be effective in assisting with his weight loss. He is not free from adverse side effects of the medication. Last 3 Encounter Wt Readings: Date: Wt: 02/21/2018 123.4 kg (272 lb 1.6 oz) 02/06/2018 125.6 kg (277 lb) 01/27/2018 127.9 kg (282 lb) Diet: Low calories Russ Mclaughlin is not having difficulties following the diet. He eats fast food only occasionally now and makes better choices. Breakfast:bowl of cereal or 2 rice cakes or eggs Lunch:skips often or chicken with vegetables or fahitas Dinner: brussels sprouts, asparagus with fish, chicken Snacks: carrot, celery, rice cakes Hydration: she/he usually drinks water Russ Mclaughlin does drink alcohol. The patient has 12 cans of beer per week. Appetite: Patients appetite has been controlled. Physical Activity: Patient is exercising at this time. He walks, runs and cardio 5 days a week for > 60 minutes. 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 Stress: The patient does not have a lot of stress. ALLERGIES Allergen Reactions - Latex Hives - Narcotics [Opioids * Vomiting - Percocet [Oxycodone* Intolerance, Other: See Comments - Vicodin [Hydrocodon* Intolerance, Vomiting - A AND D Ointment [Oth* ondansetron orally disintegrating (ZOFRAN ODT) 4 mg disintegrating tablet Take 1 tablet by mouth every 8 hours as needed for Nausea/Vomiting. Phentermine HCl 37.5 mg tablet Take 1 tablet by mouth once daily for 30 days. sildenafil, antihypertensive, (REVATIO) 20 mg tablet 3-5 tabs po prn Indications: ERECTILE DYSFUNCTION PAST MEDICAL HISTORY Diagnosis Date - Gynecomastia - History of chlamydia - Marijuana use - Morbid obesity (HCC) - Primary hypogonadism in male - Routine or ritual circumcision PAST SURGICAL HISTORY Procedure Laterality Date - CIRCUMCISION,CLAMP, Social History Marital status: Single Spouse name: Years of education: Number of children: Occupational History Occupation Employer Comment [employer] Social History Main Topics Smoking status: Former Smoker Packs/day: 0.20 Years: 1.00 Types: Cigarettes Quit date: 12/02/2014 Smokeless status: Never Used Alcohol use: Yes 4.5 oz/week 3 Cans of Beer (12oz) per week Drug use: Yes Frequency: 21.00 per week Special: Marijuana Sexual activity: Yes Partners with: Female FAMILY HISTORY Problem Relation Age of Onset - Asthma Mother - Arthritis Maternal Grandmother - Breast Cancer Maternal Grandmother - Lopez's palsy [OTHER] Maternal Grandfather - Diabetes Maternal Uncle - leukemia [OTHER] Maternal Uncle - myasthenia gravis [OTHER] Maternal Uncle - Diabetes Maternal Aunt - Heart Maternal Aunt - Diabetes Maternal Aunt Review of Systems: General appearance: Well appearing, alert, in no acute distress, well-hydrated, well nourished., Obese Respiratory:No cough, hemoptysis, asthma, recent chest infection, wheezing Cardiovascular:No chest pain, palpitation, orthopnea, cyanosis, pedal edema; patient has history of costochondritis, Took Motrin with relief of pain. Still gets occasionally, random, not related to exercise Gastrointestinal:No blood in stool, pain with BM, tarry stool, persistent diarrhea or constipation Genitourinary:No burning with urination, blood in urine or incontinence Hematology/Lymphology:Negative for prolonged bleeding, bruising easily or swollen nodes Musculoskeletal:back pain Psychiatric:sleep disturbance and depression Endocrine:hypogonadism Neuro:No history of headaches, syncope, paralysis, seizures or tremors Physical Exam: BP 134/81 Pulse 74 Wt 123.4 kg (272 lb 1.6 oz) BMI 36.9 kg/m2 Body mass index is 36.9 kg/(m2). Appearance Well appearing, alert, in no acute distress, well-hydrated, well nourished., Obese Eyes PERRLA, conjunctiva and sclera normal Neck Supple, no adenopathy; thyroid symmetric, normal size, no bruits Heart RRR with normal S1 and S2, no murmurs, no gallops, no JVD appreciated Lungs clear to auscultation Abd no tenderness to palpation Extremities No edema and Normal pulses bilaterally. Neuro:Awake, alert and oriented x 3 and No involuntary motions. Skin:Color, texture, turgor normal. No rashes or lesions Glucose (mg/dL) Date Value 07/03/2017 89 Potassium (mmol/L) Date Value 07/03/2017 4.0 Sodium (mmol/L) Date Value 07/03/2017 141 Chloride (mmol/L) Date Value 07/03/2017 101 CO2 (mmol/L) Date Value 07/03/2017 20 Creatinine (mg/dL) Date Value 07/03/2017 0.80 BUN (mg/dL) Date Value 07/03/2017 9 Anion Gap (mmol/L) Date Value 07/03/2017 20 Calcium (mg/dL) Date Value 07/03/2017 9.2 Protein, Total (g/dL) Date Value 07/03/2017 7.0 Albumin (g/dL) Date Value 07/03/2017 4.2 Bilirubin, Total (mg/dL) Date Value 07/03/2017 0.2 Alkaline Phosphatase (U/L) Date Value 07/03/2017 65 AST (U/L) Date Value 07/03/2017 27 ALT (U/L) Date Value 07/03/2017 25 Glucose (mg/dL) Date Value 07/03/2017 89 Potassium (mmol/L) Date Value 07/03/2017 4.0 Sodium (mmol/L) Date Value 07/03/2017 141 Chloride (mmol/L) Date Value 07/03/2017 101 CO2 (mmol/L) Date Value 07/03/2017 20 Creatinine (mg/dL) Date Value 07/03/2017 0.80 BUN (mg/dL) Date Value 07/03/2017 9 Anion Gap (mmol/L) Date Value 07/03/2017 20 Calcium (mg/dL) Date Value 07/03/2017 9.2 Cholesterol, Total Date Value Ref Range Status 07/03/2017 139 100 - 199 mg/dL Final HDL Cholesterol Date Value Ref Range Status 07/03/2017 32 (L) >45 mg/dL Final LDL Cholesterol Date Value Ref Range Status 07/03/2017 81 60 - 129 mg/dL Final Triglyceride Date Value Ref Range Status 07/03/2017 131 30 - 149 mg/dL Final Impression and Plan: 1. Class 2 severe obesity due to excess calories with serious comorbidity and body mass index (BMI) of 38.0 to 38.9 in adult (HCC) Body mass index is 36.9 kg/(m2). -Obesity Class II ? BMI of 35.0 to 39.9 kg/m2 with or without comorbidities The patient has attempted to lose weight with diet, exercise and behavioral pattern changes without the use of a controlled substance and the treatment has been ineffective. Patient was able to lose weight since started on Phentermine. The patient will be receiving the 2nd dose of Phentermine prescription today. The patient expressed understanding of the risks and benefits of taking this medication, and has a desire to continue with therapy. While taking this medication the patient was instructed to call the office if experiencing any side effects and to check the blood pressure twice a week and let us know if it goes over 150/100. ? The patient is currently enrolled in a diet and exercise program ? The patient has no known history of contraindications ? The patient is free from drug or ETOH abuse ? The patient is not or and is aware not to become while using this medication Russ Mclaughlin is aware that diet and physical activity remain the foundation of weight management, and that medications are intended to optimize and supplement, not replace healthy lifestyle efforts geared toward weight loss. Russ Mclaughlin was informed that in [facility], only one month supply of medication is provided at a time, for 3 months, then a 6 month hiatus from the medication. The patient is also aware that timely refills required, with monthly [id number] office visits. A lack of timely follow up, or not filling the medication on time every month would constitute an interruption of therapy, and the 6 month hiatus from medication would occur as per the [facility] pharmacy board rules. OAS was reviewed on February 21, 2018 by Terese Dodd MD and all prescriptions have been appropriately filled. No suspicious activity was identified. 2. Atypical chest pain Improved since last visit, better with Motrin. - CONSULT TO INTERNAL MEDICINE. Recommend patient to see PCP for further work up of his symptoms. Patient will follow-up with weight management in 1 months. Terese Dodd MD CNOV Observed: 02/21/2018 Status: COMPLETED Source: [place] 2:50 PM [facility] REPOSITORY Office Visit (ENDCMN) RUSS MCLAUGHLIN ([id number]) 1985 M Date Time Provider Department 02/21/18 2:50 PM TERESE DODD [facility] During your visit today, we recorded the following information about you: Pulse Blood pressure Weight 74/minute 134/81 123.4 kg Gilma Calvillo STATISTICAL TYPIST 02/21/2018 2:48 PM Signed Thank you for choosing the [facility] Department of Endocrinology, Diabetes and Metabolism. Being able to provide excellent health care has allowed us to be # 3 in the country according to [employer]. Did you know that you need to call 48 hours in advance of your scheduled visit, if you are unable to make your appointment? The [facility] [place] thanks you for your commitment, because patients not showing to their appointment results in a lost opportunity for patients to receive world class health care at the [facility]. To Cancel an appointment, please choose one of the following: - Call the Appointment Call Center at [phone] - From [facility], Go to Appointments ? Cancel Appts If cancelling, consider your need to reschedule to prevent further delays in your care. To Schedule an appointment, please choose one of the following: - Call the Appointment Call Center at [phone] - From [facility], Go to Appointments ? Request an Appt + Terese Dodd MD 02/23/2018 9:03 PM Signed Endocrinology Medical Weight Management Follow-up note Date of Service: 02/21/2018 SUBJECTIVE: Russ Mclaughlin is a 32 year old male who presents today for evaluation of obesity and comorbidities associated with this disease. Russ Mclaughlin identified his weight becoming a problem in childhood. The rate of weight gain was described as gradual over years.The patient has a family history Positive for obesity. He considers an ideal weight to be 210 and has lost 10 lbs since 1 month ago. Russ Mclaughlin has tried self-directed dieting and low calorie diet in the past which has not been successful. Russ Mclaughlin believes that the following may be related to his weight gain:eating the wrong foods, portion size, increased appetite, skipping meals and lack of sleep. He has been seen at [facility] for weight management in the past. The patient saw doctor Galdino on 01/27 and is taking Phentermine and has found it to be effective in assisting with his weight loss. He is not free from adverse side effects of the medication. Last 3 Encounter Wt Readings: Date: Wt: 02/21/2018 123.4 kg (272 lb 1.6 oz) 02/06/2018 125.6 kg (277 lb) 01/27/2018 127.9 kg (282 lb) Diet: Low calories Russ Mclaughlin is not having difficulties following the diet. He eats fast food only occasionally now and makes better choices. Breakfast:bowl of cereal or 2 rice cakes or eggs Lunch:skips often or chicken with vegetables or fahitas Dinner: brussels sprouts, asparagus with fish, chicken Snacks: carrot, celery, rice cakes Hydration: she/he usually drinks water Russ Mclaughlin does drink alcohol. The patient has 12 cans of beer per week. Appetite: Patients appetite has been controlled. Physical Activity: Patient is exercising at this time. He walks, runs and cardio 5 days a week for ANDgt; 60 minutes. 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 Stress: The patient does not have a lot of stress. ALLERGIES Allergen Reactions - Latex Hives - Narcotics [Opioids * Vomiting - Percocet [Oxycodone* Intolerance, Other: See Comments - Vicodin [Hydrocodon* Intolerance, Vomiting - A ANDamp; D Ointment [Oth* ondansetron orally disintegrating (ZOFRAN ODT) 4 mg disintegrating tablet Take 1 tablet by mouth every 8 hours as needed for Nausea/Vomiting. Phentermine HCl 37.5 mg tablet Take 1 tablet by mouth once daily for 30 days. sildenafil, antihypertensive, (REVATIO) 20 mg tablet 3-5 tabs po prn Indications: ERECTILE DYSFUNCTION PAST MEDICAL HISTORY Diagnosis Date - Gynecomastia - History of chlamydia - Marijuana use - Morbid obesity (HCC) - Primary hypogonadism in male - Routine or ritual circumcision PAST SURGICAL HISTORY Procedure Laterality Date - CIRCUMCISION,CLAMP, Social History Marital status: Single Spouse name: Years of education: Number of children: Occupational History Occupation Employer Comment [employer] Social History Main Topics Smoking status: Former Smoker Packs/day: 0.20 Years: 1.00 Types: Cigarettes Quit date: 12/02/2014 Smokeless status: Never Used Alcohol use: Yes 4.5 oz/week 3 Cans of Beer (12oz) per week Drug use: Yes Frequency: 21.00 per week Special: Marijuana Sexual activity: Yes Partners with: Female FAMILY HISTORY Problem Relation Age of Onset - Asthma Mother - Arthritis Maternal Grandmother - Breast Cancer Maternal Grandmother - Lopez's palsy [OTHER] Maternal Grandfather - Diabetes Maternal Uncle - leukemia [OTHER] Maternal Uncle - myasthenia gravis [OTHER] Maternal Uncle - Diabetes Maternal Aunt - Heart Maternal Aunt - Diabetes Maternal Aunt Review of Systems: General appearance: Well appearing, alert, in no acute distress, well-hydrated, well nourished., Obese Respiratory:No cough, hemoptysis, asthma, recent chest infection, wheezing Cardiovascular:No chest pain, palpitation, orthopnea, cyanosis, pedal edema; patient has history of costochondritis, Took Motrin with relief of pain. Still gets occasionally, random, not related to exercise Gastrointestinal:No blood in stool, pain with BM, tarry stool, persistent diarrhea or constipation Genitourinary:No burning with urination, blood in urine or incontinence Hematology/Lymphology:Negative for prolonged bleeding, bruising easily or swollen nodes Musculoskeletal:back pain Psychiatric:sleep disturbance and depression Endocrine:hypogonadism Neuro:No history of headaches, syncope, paralysis, seizures or tremors Physical Exam: BP 134/81 Pulse 74 Wt 123.4 kg (272 lb 1.6 oz) BMI 36.9 kg/m2 Body mass index is 36.9 kg/(m2). Appearance Well appearing, alert, in no acute distress, well- hydrated, well nourished., Obese Eyes PERRLA, conjunctiva and sclera normal Neck Supple, no adenopathy; thyroid symmetric, normal size, no bruits Heart RRR with normal S1 and S2, no murmurs, no gallops, no JVD appreciated Lungs clear to auscultation Abd no tenderness to palpation Extremities No edema and Normal pulses bilaterally. Neuro:Awake, alert and oriented x 3 and No involuntary motions. Skin:Color, texture, turgor normal. No rashes or lesions Glucose (mg/dL) Date Value 07/03/2017 89 Potassium (mmol/L) Date Value 07/03/2017 4.0 Sodium (mmol/L) Date Value 07/03/2017 141 Chloride (mmol/L) Date Value 07/03/2017 101 CO2 (mmol/L) Date Value 07/03/2017 20 Creatinine (mg/dL) Date Value 07/03/2017 0.80 BUN (mg/dL) Date Value 07/03/2017 9 Anion Gap (mmol/L) Date Value 07/03/2017 20 Calcium (mg/dL) Date Value 07/03/2017 9.2 Protein, Total (g/dL) Date Value 07/03/2017 7.0 Albumin (g/dL) Date Value 07/03/2017 4.2 Bilirubin, Total (mg/dL) Date Value 07/03/2017 0.2 Alkaline Phosphatase (U/L) Date Value 07/03/2017 65 AST (U/L) Date Value 07/03/2017 27 ALT (U/L) Date Value 07/03/2017 25 Glucose (mg/dL) Date Value 07/03/2017 89 Potassium (mmol/L) Date Value 07/03/2017 4.0 Sodium (mmol/L) Date Value 07/03/2017 141 Chloride (mmol/L) Date Value 07/03/2017 101 CO2 (mmol/L) Date Value 07/03/2017 20 Creatinine (mg/dL) Date Value 07/03/2017 0.80 BUN (mg/dL) Date Value 07/03/2017 9 Anion Gap (mmol/L) Date Value 07/03/2017 20 Calcium (mg/dL) Date Value 07/03/2017 9.2 Cholesterol, Total Date Value Ref Range Status 07/03/2017 139 100 - 199 mg/dL Final HDL Cholesterol Date Value Ref Range Status 07/03/2017 32 (L) ANDgt;45 mg/dL Final LDL Cholesterol Date Value Ref Range Status 07/03/2017 81 60 - 129 mg/dL Final Triglyceride Date Value Ref Range Status 07/03/2017 131 30 - 149 mg/dL Final Impression and Plan: 1. Class 2 severe obesity due to excess calories with serious comorbidity and body mass index (BMI) of 38.0 to 38.9 in adult (HCC) Body mass index is 36.9 kg/(m2). -Obesity Class II ? BMI of 35.0 to 39.9 kg/m2 with or without comorbidities The patient has attempted to lose weight with diet, exercise and behavioral pattern changes without the use of a controlled substance and the treatment has been ineffective. Patient was able to lose weight since started on Phentermine. The patient will be receiving the 2nd dose of Phentermine prescription today. The patient expressed understanding of the risks and benefits of taking this medication, and has a desire to continue with therapy. While taking this medication the patient was instructed to call the office if experiencing any side effects and to check the blood pressure twice a week and let us know if it goes over 150/100. ? The patient is currently enrolled in a diet and exercise program ? The patient has no known history of contraindications ? The patient is free from drug or ETOH abuse ? The patient is not or and is aware not to become while using this medication Jean-Claudelydiaari Yovanny Arnoldo is aware that diet and physical activity remain the foundation of weight management, and that medications are intended to optimize and supplement, not replace healthy lifestyle efforts geared toward weight loss. Jean-Claudehugo Mclaughlin was informed that in [facility], only one month supply of medication is provided at a time, for 3 months, then a 6 month hiatus from the medication. The patient is also aware that timely refills required, with monthly [id number] office visits. A lack of timely follow up, or not filling the medication on time every month would constitute an interruption of therapy, and the 6 month hiatus from medication would occur as per the [facility] pharmacy board rules. OARRS was reviewed on February 21, 2018 by Terese Dodd MD and all prescriptions have been appropriately filled. No suspicious activity was identified. 2. Atypical chest pain Improved since last visit, better with Motrin. - CONSULT TO INTERNAL MEDICINE. Recommend patient to see PCP for further work up of his symptoms. Patient will follow-up with weight management in 1 months. Terese Dodd MD Referring Provider: CARLEE ARMAS [[id number]] Allergies As of Date: 02/21/2018 Noted Allergy Reaction LATEX 08/25/2005 4 - Hives NARCOTICS (OPIOIDS - MORPHINE RICARDA*09/25/2017 11 - Vomiting PERCOCET (OXYCODONE-ACETAMINOPHEN)09/25/2017 5 - Intolerance 14 - Other: See Comments VICODIN (HYDROCODONE-ACETAMINOPHE*09/25/2017 5 - Intolerance 11 - Vomiting a AND d ointment [Other] 08/30/2005 Date Reviewed: 02/21/2018 Reviewed by: Terese Dodd - Fully Assessed Reason for Visit: Weight Check [196] Primary Visit Diagnosis:Class 2 severe obesity due to excess calories with serious comorbidity and body mass index (BMI) of 38.0 to 38.9 in adult ([facility]) [E66.01, Z68.38] Other Visit Diagnosis:Atypical chest pain [R07.89] Order(s):CONSULT TO INTERNAL MEDICINE [9005] Order #: [id number]: 1 Phentermine HCl 37.5 mg tabletTake 1 tablet by mouth once daily for 30 days. Body mass index is 36.9 kg/(m2).Disp: 30 tabletRfl: 0 Prescriptions as of 02/21/2018 Sig: PHENTERMINE 37.5 MG TABLET Take 1 tablet by mouth once d* ONDANSETRON 4 MG DISINTEGRATI* Take 1 tablet by mouth every * SILDENAFIL (ANTIHYPERTENSIVE)* 3-5 tabs po prn Indications:* Medication notes this encounter ONDANSETRON 4 MG DISINTEGRATING TABLET >> Gilma Calvillo LPN 02/21/2018 2:50 PM >> GILMA CALVILLO LPN SatFeb 21, 2018 2:50 PM not taking Problem List As Of Date 02/21/2018 Noted Resolved Gynecomastia [N62] History of chlamydia [Z86.19] Primary hypogonadism in male [E29.1] Other instructions from your clinician: Thank you for choosing the [facility] Department of Endocrinology, Diabetes and Metabolism. Being able to provide excellent health care has allowed us to be # 3 in the country according to [employer]. Did you know that you need to call 48 hours in advance of your scheduled visit, if you are unable to make your appointment? The [facility] [place] thanks you for your commitment, because patients not showing to their appointment results in a lost opportunity for patients to receive world class health care at the [facility]. To Cancel an appointment, please choose one of the following: - Call the Appointment Call Center at [phone] - From [facility], Go to Appointments ? Cancel Appts If cancelling, consider your need to reschedule to prevent further delays in your care. To Schedule an appointment, please choose one of the following: - Call the Appointment Call Center at [phone] - From [facility], Go to Appointments ? Request an Appt + Prescriptions ordered this encounter Disp Refills Start End PHENTERMINE 37.5 MG TABLET 30 t* 0 02/21/2018 03/23/2018 Class: Print RX Route: ORAL Sig: Take 1 tablet by mouth once daily for 30 days. Body mass index is 36.9 kg/(m2). Medications Discontinued During This Encounter Phentermine HCl 37.5 mg tablet 30 t* 0 01/27/2018 02/21/2018 Class: Print RX Cmt: bmi 38 Route: ORAL Sig: Take 1 tablet by mouth once daily for 30 days. Disc: Reason for discontinue is not on file. Encounter Status:Closed by TERESE DODD MD on 02/23/18 PROGRESS Observed: 02/13/2018 Status: COMPLETED Source: [place] 11:08 AM [facility] REPOSITORY HNO ID: [id number] Author: Tuan Rabago Service: (none) Author Type: Physician Type: Progress Notes Filed: 02/13/2018 11:08 AM Note Text: Status post gynecomastia resection. Is doing well overall. Has some early seromas are healing well. Some mild from the breasts from likely the seromas. I will see him in approximately year or sooner as needed. Tuan Rabago MD PROGRESS Observed: 02/11/2018 Status: COMPLETED Source: [place] 1:19 PM [facility] REPOSITORY HNO ID: [id number] Author: Lara Burdick Ma Service: (none) Author Type: (none) Type: Progress Notes Filed: 02/11/2018 1:20 PM Note Text: [id number] DATE OF PHOTOS: February 04, 2018 TAKEN WITH LENS: 7ft / 85mm x5 BREAST POSES: PHOTO INFO: DIAGNOSIS: BREAST: GYNECOMASTIA RELEASE: NO AUTHORIZATION GIVEN BY PATIENT TO USE PHOTOS FOR GYNECOMASTIA. PHOTOS TAKEN BY HEIDY GONSALES MA ABSTRACT ENTERED BY Lara Burdick Ma PROGRESS Observed: 02/06/2018 Status: COMPLETED Source: [place] 11:22 AM [facility] REPOSITORY HNO ID: [id number] Author: Carolina Kim CNP Service: (none) Author Type: Nurse Practitioner Type: Progress Notes Filed: 02/06/2018 2:03 PM Note Text: This note was created using [employer]. Subjective Patient is a 32 year old male presenting with respiratory complaint comments. The history is provided by the patient. No language teacher was used. URI This is a new problem. Associated symptoms include appetite change, ear pain, a fever, headaches, malaise/fatigue and a sore throat. Pertinent negatives include no nasal congestion. Associated symptoms comments: Nausea and diarrhea several times a day . His symptoms are aggravated by eating. Ineffective treatments: dayquil, nyquil, benadryl, immodium Risk factors: + ill contacts. Review of Systems Constitutional: Positive for appetite change, fever and malaise/fatigue. HENT: Positive for ear pain and sore throat. Neurological: Positive for headaches. Objective BP 134/82 Pulse 72 Temp 37.1 ?C (98.8 ?F) Resp 16 Wt 125.6 kg (277 lb) BMI 37.57 kg/m2 Physical Exam Constitutional: He is oriented to person, place, and time. He appears well-developed and well-nourished. No distress. HENT: Head: Normocephalic and atraumatic. Right Ear: External ear normal. Left Ear: External ear normal. Nose: Nose normal. Mouth/Throat: Oropharynx is clear and moist. Eyes: Conjunctivae are normal. Neck: Normal range of motion. Neck supple. No thyromegaly present. Cardiovascular: Normal rate and regular rhythm. No murmur heard. Pulmonary/Chest: Effort normal and breath sounds normal. Abdominal: Soft. Bowel sounds are normal. He exhibits no distension and no mass. There is no tenderness. Neurological: He is alert and oriented to person, place, and time. Skin: Skin is warm and dry. No rash noted. ASSESSMENT/PLAN: 1. Viral gastroenteritis - ICD9: 008.8, ICD10: A08.4 (primary diagnosis) 2. Viral illness - ICD9: 079.99, ICD10: B34.9 - ONDANSETRON 4 MG DISINTEGRATING TABLET - BRAT diet and advance as tolerated - forms for return to work completed STEPHANIE Gregg Observed: 02/06/2018 Status: COMPLETED Source: [place] 11:20 AM [facility] REPOSITORY Office Visit (FAMPWS) ARNOLDORUSS KEATING ([id number]) 1985 M Date Time Provider Department 02/06/18 11:20 AM CAROLINA KIM) AAYUSH During your visit today, we recorded the following information about you: Temperature Pulse Respiration Blood pressure 98.8 degrees 72/minute 16/minute 134/82 Weight 125.6 kg Carolina Kim CNP, CNP 02/06/2018 2:03 PM Signed This note was created using [employer]. Subjective Patient is a 32 year old male presenting with respiratory complaint comments. The history is provided by the patient. No language teacher was used. URI This is a new problem. Associated symptoms include appetite change, ear pain, a fever, headaches, malaise/fatigue and a sore throat. Pertinent negatives include no nasal congestion. Associated symptoms comments: Nausea and diarrhea several times a day . His symptoms are aggravated by eating. Ineffective treatments: dayquil, nyquil, benadryl, immodium Risk factors: + ill contacts. Review of Systems Constitutional: Positive for appetite change, fever and malaise/fatigue. HENT: Positive for ear pain and sore throat. Neurological: Positive for headaches. Objective BP 134/82 Pulse 72 Temp 37.1 ?C (98.8 ?F) Resp 16 Wt 125.6 kg (277 lb) BMI 37.57 kg/m2 Physical Exam Constitutional: He is oriented to person, place, and time. He appears well-developed and well-nourished. No distress. HENT: Head: Normocephalic and atraumatic. Right Ear: External ear normal. Left Ear: External ear normal. Nose: Nose normal. Mouth/Throat: Oropharynx is clear and moist. Eyes: Conjunctivae are normal. Neck: Normal range of motion. Neck supple. No thyromegaly present. Cardiovascular: Normal rate and regular rhythm. No murmur heard. Pulmonary/Chest: Effort normal and breath sounds normal. Abdominal: Soft. Bowel sounds are normal. He exhibits no distension and no mass. There is no tenderness. Neurological: He is alert and oriented to person, place, and time. Skin: Skin is warm and dry. No rash noted. ASSESSMENT/PLAN: 1. Viral gastroenteritis - ICD9: 008.8, ICD10: A08.4 (primary diagnosis) 2. Viral illness - ICD9: 079.99, ICD10: B34.9 - ONDANSETRON 4 MG DISINTEGRATING TABLET - BRAT diet and advance as tolerated - forms for return to work completed Carolina Kim CNP Referring Provider: SELF [[id number]] Allergies As of Date: 02/06/2018 Noted Allergy Reaction LATEX 08/25/2005 4 - Hives NARCOTICS (OPIOIDS - MORPHINE RICARDA*09/25/2017 11 - Vomiting PERCOCET (OXYCODONE-ACETAMINOPHEN)09/25/2017 5 - Intolerance 14 - Other: See Comments VICODIN (HYDROCODONE-ACETAMINOPHE*09/25/2017 5 - Intolerance 11 - Vomiting a AND d ointment [Other] 08/30/2005 Date Reviewed: 02/06/2018 Reviewed by: Aneesh Bass LPN - Fully Assessed Reason for Visit: Acute Visit [896] Cmt: diarrhea, nausea, vomiting, fever broke yesterday am Primary Visit Diagnosis:Viral gastroenteritis [A08.4] Other Visit Diagnosis:Viral illness [B34.9] Order(s):ondansetron orally disintegrating (ZOFRAN ODT) 4 mg disintegrating tabletTake 1 tablet by mouth every 8 hours as needed for Nausea/Vomiting.Disp: 15 tabletRfl: 0 Prescriptions as of 02/06/2018 Sig: PHENTERMINE 37.5 MG TABLET Take 1 tablet by mouth once d* ONDANSETRON 4 MG DISINTEGRATI* Take 1 tablet by mouth every * SILDENAFIL (ANTIHYPERTENSIVE)* 3-5 tabs po prn Indications:* Problem List As Of Date 02/06/2018 Noted Resolved Gynecomastia [N62] History of chlamydia [Z86.19] Primary hypogonadism in male [E29.1] Prescriptions ordered this encounter Disp Refills Start End ONDANSETRON 4 MG DISINTEGRATING TABL* 15 t* 0 02/06/2018 Route: ORAL Sig: Take 1 tablet by mouth every 8 hours as needed for Nausea/Vomiting. Medications Discontinued During This Encounter Syringe with Needle, Disp, (SYRINGE * 10 S* 3 10/22/2017 02/06/2018 Route: Miscell. (Med.Supl.;Non-Drugs) Si Each every 2 weeks. Disc: Reason for discontinue is not on file. traMADol (ULTRAM) 50 mg tablet 0 08/02/2017 02/06/2018 Class: Historical Med Sig: Disc: Reason for discontinue is not on file. ibuprofen (MOTRIN) 600 mg tablet 08/02/2017 02/06/2018 Class: Historical Med Sig: Disc: Reason for discontinue is not on file. ondansetron orally disintegrating (Z* 15 t* 0 10/18/2017 02/06/2018 Class: Print RX Route: ORAL Sig: Take 1 tablet by mouth every 8 hours as needed for Nausea/Vomiting. Disc: Reason for discontinue is not on file. Letter Text Carolina Kim CNP [address] [place], [place] [address] 02/06/2018 Russ Mclaughlin [facility]# [id number] [address] [place] [address] TO WHOM IT MAY CONCERN: This is to certify that Mr. Russ Hairston Arnoldo has been under my care for illness and was unable to work from 02/04/2018 through 02/06/2018 Sincerely yours, Carolina Kim CNP Encounter Status:Closed by CAROLINA KIM CNP on 02/06/18 CNOV Observed: 02/04/2018 Status: COMPLETED Source: [place] 2:45 PM [facility] REPOSITORY Office Visit (PLASBD) RUSS MCLAUGHLIN ([id number]) 1985 M Date Time Provider Department 02/04/18 2:45 PM TUAN RABAGO During your visit today, we recorded the following information about you: Tuan Rabago MD 02/13/2018 11:08 AM Signed Status post gynecomastia resection. Is doing well overall. Has some early seromas are healing well. Some mild from the breasts from likely the seromas. I will see him in approximately year or sooner as needed. Tuan Rabago MD Referring Provider: SELF [200] Allergies As of Date: 02/04/2018 Noted Allergy Reaction LATEX 08/25/2005 4 - Hives NARCOTICS (OPIOIDS - MORPHINE RICARDA*09/25/2017 11 - Vomiting PERCOCET (OXYCODONE-ACETAMINOPHEN)09/25/2017 5 - Intolerance 14 - Other: See Comments VICODIN (HYDROCODONE-ACETAMINOPHE*09/25/2017 5 - Intolerance 11 - Vomiting a AND d ointment [Other] 08/30/2005 Date Reviewed: 02/04/2018 Reviewed by: Heidy Gonsales Ma - Fully Assessed Reason for Visit: Post Op [174] Cmt: gybecomastia Primary Visit Diagnosis:Gynecomastia [N62] Prescriptions as of 02/04/2018 Sig: PHENTERMINE 37.5 MG TABLET Take 1 tablet by mouth once d* SILDENAFIL (ANTIHYPERTENSIVE)* 3-5 tabs po prn Indications:* X IBUPROFEN 600 MG TABLET X TRAMADOL 50 MG TABLET X SYRINGE WITH NEEDLE 3 ML 22 G* 1 Each every 2 weeks. X ONDANSETRON 4 MG DISINTEGRATI* Take 1 tablet by mouth every * Problem List As Of Date 02/04/2018 Noted Resolved Gynecomastia [N62] History of chlamydia [Z86.19] Primary hypogonadism in male [E29.1] Encounter Status:Closed by TUAN RABAGO MD on 02/13/18 PROGRESS Observed: 01/27/2018 Status: COMPLETED Source: [place] 11:29 AM [facility] REPOSITORY O ID: [id number] Author: Carlee Armas Service: (none) Author Type: Physician Type: Progress Notes Filed: 01/27/2018 11:39 AM Note Text: Russ Mclaughlin is here today for a following for weight management.gynecomastia s/p surgery and abnormal weight gain. Also having problems with left sided chest pain S: Being followed for the following comorbidities: Other hx gynecomastia Exercising: about to start, regularly for 90 min per day for 5 days/week. Type of exercise: track curl bench Status of comorbidities: Total weight gain thus far: 10 pounds Started program on : the last BMI'S: Body mass index is 38.25 kg/(m2). the last CMP : Glucose (mg/dL) Date Value 07/03/2017 89 Potassium (mmol/L) Date Value 07/03/2017 4.0 Sodium (mmol/L) Date Value 07/03/2017 141 Chloride (mmol/L) Date Value 07/03/2017 101 CO2 (mmol/L) Date Value 07/03/2017 20 Creatinine (mg/dL) Date Value 07/03/2017 0.80 BUN (mg/dL) Date Value 07/03/2017 9 Anion Gap (mmol/L) Date Value 07/03/2017 20 Calcium (mg/dL) Date Value 07/03/2017 9.2 Protein, Total (g/dL) Date Value 07/03/2017 7.0 Albumin (g/dL) Date Value 07/03/2017 4.2 Bilirubin, Total (mg/dL) Date Value 07/03/2017 0.2 Alkaline Phosphatase (U/L) Date Value 07/03/2017 65 AST (U/L) Date Value 07/03/2017 27 ALT (U/L) Date Value 07/03/2017 25 O: physical: BP 124/82 Pulse 67 Wt 127.9 kg (282 lb) BMI 38.25 kg/m2 AppearanceObese Eyes normal, no erythema Neck Supple, no adenopathy; thyroid symmetric, normal size, no bruits Heart RRR with normal S1 and S2, no murmurs, no gallops, no JVD appreciated Lungs clear to auscultation chest tenderness left lower cosochondral junction Abd bowel sounds normoactive, no bruits, soft, non-tender, non-distended, without organomegaly or palpable masses, no tenderness to palpation Extremities Normal, No deformities, No skin discoloration, No edema and Normal pulses bilaterally. Neuro Awake, alert and oriented x 3, No involuntary motions. and Reflexes symmetrical Skin Skin color, texture, turgor normal, no suspicious rashes or lesions A: costochondritis obesity PLAN: ibuprofen 400 tid x 7 d start phentermine 37.5 mg/d RTC : 1 month Carlee Armas MD ALLERGIES ALLERGIES DATE TYPE / CODE NAME / CODE REACTION SEVERITY SOURCE Drug glycerin/F0000 Hives Unknown [place] 8 Allergy/831572729( 13375(RXNORM) [facility] SNOMED CT) Hospital Repository Drug dimethicone/F0 Hives Unknown [place] 8 Allergy/868019762( 86288728(RXNOR [facility] SN[facility]) M) Hospital Repository Drug stearyl Hives Unknown [place] 8 Allergy/718808113( alcohol/Z30796 [facility] SNOMED [facility]) 2453(RXNORM) Hospital Repository Drug latex/B2655899 Hives Unknown [place] 8 Allergy/268107082( 21(RXNORM) [facility] SN[facility]) Hospital Repository Drug OPIOIDS - Vomiting [place] 7 Class/855408428(SN MORPHINE Clinic Other OMED CT) ANALOGUES [place] Repository DRUG/[id number](SNO OXYCODONE-ACET INTOLERANCE [place] [address]) AMINOPHEN Clinic Other [place] Rep[facility] DRUG/820487451(SNO HYDROCODONE-AC INTOLERANCE [address]) ETAMINOPHEN Clinic Other [place] Rep[facility] Miscellaneous OTHER [place] 5 Allergy/245695812( Clinic Other SNOMED CT) [place] Rep[facility] Environ/212390832( LATEX HIVES Med [place] [address]) Clinic Other [place] Rep[facility] ENCOUNTERS ENCOUNTERS ADMIT/DISCHARGE ACCOUNT ADMITTING ENCOUNTER LOCATION SOURCE NUMBER CLASS 11/16/2018/11/16/20 [id number] Emergency [place] [address] ing:ED Repository 07/31/2018/07/31/20 [id number] Ambulatory [address] Main [place] Repository 07/14/2018 [id number] Ambulatory [facility] Main [place] Rep[place] 07/08/2018/07/08/20 [id number] Ambulatory [place] [facility] Main [place] Repository 06/09/2018/06/09/20 [id number] Ambulatory [place] [facility] Other [place] Rep[facility] 06/09/2018/06/10/20 [id number] Ambulatory [place] [facility] Main [place] Rep[facility] 05/28/2018/05/29/20 [id number] Ambulatory [place] [facility] Main [place] Rep[facility] 05/20/2018/05/20/20 [id number] Ambulatory [place] [facility] Other [place] Repository 05/09/2018/05/09/20 [id number] Ambulatory [place] [facility] Main [place] Repository 04/24/2018/04/24/20 [id number] Ambulatory [place] [facility] Other [place] Repository 04/21/2018/04/21/20 [id number] Ambulatory [address] [place] Rep[place] 04/21/2018/04/21/20 [id number] Ambulatory [address] Other [place] Repository 04/17/2018/04/17/20 [id number] Emergency [place] [address] [place] [address] ing:ED Repository 04/17/2018/04/17/20 [id number] Ambulatory [address] Main [place] Repository 04/17/2018/04/17/20 [id number] Ambulatory [address] [place] Rep[place] 04/06/2018/04/06/20 [id number] Emergency [place] [address] [place] [address] ing:ED Repository 04/02/2018/04/03/20 [id number] Ambulatory [address] Main [place] Repository 02/21/2018/02/25/20 [id number] Ambulatory [address] Main [place] Rep[facility] 02/06/2018/02/11/20 [id number] Ambulatory [address] Main [place] Rep[place] 02/04/2018/02/15/20 [id number] Ambulatory [address] Main [place] Rep[facility] 01/27/2018/01/28/20 [id number] Ambulatory [address] [place] Rep[place] PAYERS PAYERS ENCOUNTER GUARANTOR PAYER SUBSCRIBER SOURCE 11/16/2018 Russ Bales Primary Russ [id number] Insurance:MEDICAL CarterDOB: [facility] [place] Number: Repository [address]Mnn: 330 [id number] [phone] (HP) Date:2700-09-85BI [address] [address]BT: 11/16/2018 Secondary NOT GIVENUNK [place] Insurance:SELF PAY [facility] Number: Effective Repository Date:2018-11-16 04/17/2018 Russ Bales Primary Russ Bales Aric [id number] Insurance:MEDICAL CarterDOB: [facility] [id number] Number: Repository [address]Bls: 330 [id number] [phone] (HP) Date:5729-53-84FI [address] [address]ZQ: 04/17/2018 Secondary NOT GIVENUNK [place] Insurance:SELF PAY [facility] Number: Effective Repository Date:2018-04-17 04/06/2018 Russ Bales Primary Russ Bales Aric [id number] Insurance:MEDICAL CarterDOB: [facility] [id number] Number: Repository [address]Wcr: 330 [id number] [phone] (HP) Date:5340-84-08DY [address] [address]JT: 04/06/2018 Secondary NOT GIVENUNK [place] Insurance:SELF PAY [facility] Number: Effective Repository Date:2018-04-06
== END 2018-11-16 20:18 | disposition home or self-care (01) ==
LOC: ED 20:15
PROVIDERS: Emergency Provider Emergency Medicine
DX: H66.91 Otitis media, unspecified, right ear (principal); J02.9 Acute pharyngitis, unspecified; F32.9 Major depressive disorder, single episode, unspecified; F41.9 Anxiety disorder, unspecified; R51 Headache
CPT/HCPCS: 99283

== ENCOUNTER 2020-05-29 15:59 | Emergency (ER) | payer MEDICAID, SELFPAY ==
[2020-05-29 16:01] VITALS: BP 133/61; PULSE 84; RESP 17; TEMP 36.2; O2SAT 97; BMI 36.5
--- NOTE | 2020-05-29 16:12 | ED.DCSUM_ITS ---
History of Present Illness Chief Complaint: Abd Pain Informant: Patient Onset: Days Current Severity: Mild Maximum Severity: Mild Narrative: Patient presents with his significant other secondary to bleeding from his umbil icus. He states this will happen intermittently. He noted a sore bump in his bellybutton and it started to bleed. Symptoms seem to be improving currently. Significant other found out about it today and wanted him to be checked. He denies fever or chills. - Past Medical History (1) Anxiety and depression Status: Chronic Past Medical History - Allergies and Home Meds Allergies/Adverse Reactions: Allergies dimethicone [From A & D Emollient] Allergy (Verified 05/29/20 16:00) Hives glycerin [From A & D Emollient] Allergy (Verified 05/29/20 16:00) Hives latex Allergy (Verified 05/29/20 16:00) Hives stearyl alcohol [From A & D Emollient] Allergy (Verified 05/29/20 16:00) Hives narcotics Adverse Reaction (Uncoded 05/29/20 16:01) Vomiting Primary Care Physician: Care Physician,No Primary [Primary Care Provider] - Prior records reviewed: Yes Lives: Spouse/ Significant Other Smoking Status: Former smoker Review of Systems General: Denies: Chills, Fever Eyes: Denies: Visual changes - bilaterally ENT: Denies: Bilateral ear pain Cardiovascular: Denies: Chest pain Respiratory: Denies: Dyspnea, Cough Gastrointestinal: Denies: Abdominal pain Genitourinary: Denies: Dysuria Musculoskeletal: Denies: Extremity Pain Skin: Reports: Wounds Neurological: Denies: Headache Hematologic: Denies: Easy bruising, Easy bleeding Allergy: Denies: Uticaria Physical Exam Vital Signs/Narrative: Vital Signs Temp Pulse Resp BP Pulse Ox 05/29/20 16:01 97.2 F L 84 17 133/61 H 97 Inital Vital Signs reviewed: Yes General: Well nourished, Well developed Head: Normocephalic ENT: Moist mucous membranes Neck: Supple Cardiovascular: Regular rate, Regular rhythm Respiratory: No distress, CTA bilaterally Abdomen: Soft, Nontender Skin: - - Dried blood around the umbilicus. No palpable hernias. No sign of infection or cellulitis. Psychological: Normal affect Diagnostic/Tx/Re-eval - Medical Decision Making Kevin was cleansed. No evidence of a focal abscess at this time. Because he had a small painful bump I suspect he likely had a small abscess that drained. He states he also had noted a lump in his right groin that now seems to be improved as well. I advised him I believe this is likely a reactive lymph node. No further treatment is needed at this time. ED Disposition - Plan for ED Patient: Disposition: Home or Assisted Living Diagnosis: Visit for wound check Instructions: ED Wound Care
[2020-05-29 16:26] VITALS: PULSE 81; RESP 14; O2SAT 98
== END 2020-05-29 16:28 | disposition home or self-care (01) ==
LOC: ED 16:24
PROVIDERS: Emergency Provider Emergency Medicine
DX: Z48.00 Encounter for change or removal of nonsurgical wound dressing (principal); F32.9 Major depressive disorder, single episode, unspecified; F41.9 Anxiety disorder, unspecified; Z87.891 Personal history of nicotine dependence; Z88.5 Allergy status to narcotic agent; Z91.040 Latex allergy status
CPT/HCPCS: 99282

== ENCOUNTER 2020-06-06 10:37 | Emergency (ER) | payer MEDICAID, SELFPAY ==
[2020-06-06] VITALS (9 sets, daily range): BP systolic 140–154; BP diastolic 91–103; PULSE 60–75; RESP 14–20; TEMP 36.2; O2SAT 96–98; BMI 36.0
--- NOTE | 2020-06-06 11:09 | EKG12_ITS ---
Test Reason : STROKE Blood Pressure : / mmHG Vent. Rate : 065 BPM Atrial Rate : 065 BPM P-R Int : 174 ms QRS Dur : 102 ms QT Int : 400 ms P-R-T Axes : 050 047 019 degrees QTc Int : 416 ms Normal sinus rhythm with sinus arrhythmia Normal ECG Confirmed by ISAAC ESTRELLA, LORRAINE ([id number]), medical transcription editor LUISANA OWENS ([id number]) on 06/08/2020 10:06:30 AM Referred By: ERIC Confirmed By:LORRAINE GRAY MD
--- NOTE | 2020-06-06 11:09 | RAD_ITS ---
STUDY: X-RAY CHEST REASON FOR EXAM: Male, 34 years old. LEFT UPPER ARM PARESTHESIAS TECHNIQUE: Single AP portable view of the chest. COMPARISON: Comparison is made with prior study dated July 01, 2017. FINDINGS: EKG electrodes are seen. The lungs are clear and expanded. There is no demonstrated pleural abnormality. Normal size heart. Normal mediastinum and mary. Normal visualized pulmonary arteries. Normal visualized aortic arch and descending thoracic aorta. Normal visualized thoracic spine. Normal visualized ribs, clavicles, and shoulders. There is no demonstrated abnormality of the visualized soft tissue structures of the upper abdomen. RAD/Chest 1 View IMPRESSION: Normal x-ray examination of the chest. Electronically Signed: Ramon Todd, at 12:19 EDT , Service support ,
--- NOTE | 2020-06-06 11:09 | CT_ITS ---
STUDY: CT BRAIN WITHOUT CONTRAST REASON FOR EXAM: Male, 34 years old. LEFT UE WEAKNESS SINCE 9:45AM RADIATION DOSAGE (If Supplied By Facility): CTDIvol = ( 44.99 ) mGy, DLP = ( 866.41 ) mGycm TECHNIQUE: Transaxial CT imaging of the brain was performed without administration of intravenous contrast material. Individualized dose optimization techniques were used for this CT. COMPARISON: No relevant priors. FINDINGS: Normal soft tissue structures. Normal calvarium. Normal size ventricles and extra-axial spaces for the patient''s age. Normal white matter tracts of the cerebral hemispheres. Normal basal ganglia and thalami. Normal brainstem. Normal cerebellum. There is no intracranial hemorrhage. There are no findings of an acute ischemic infarction. Normal visualized paranasal sinuses. CT/Brain/Head without Contrast IMPRESSION: There is no intracranial hemorrhage. N.B. : The above information has been verbally conveyed by Beba Turpin MD to Surinder Licea [phone], on 06/06/2020 11:29:51 (ET). Electronically Signed: Beba Turpin MD at 11:30 EDT Tel , Service support ,
[2020-06-06 11:30] LABS: Bedside Glucose 99 mg/dL (70-110)
[2020-06-06] MEDS: 0.9% Normal Saline 1,000 ML 100 ML IV (11:31)
[2020-06-06 11:40] LABS: Absolute Lymphocyte Count 2.23 X10^3/uL (0.83-4.51); Absolute Neutrophil Count 5.7 X10^3/uL (2.0-7.7); Basophil# 0.06 X10^3/uL; Basophil% 0.7 % (0-1); Eosinophil# 0.24 X10^3/uL; Eosinophils% 2.8 % (0-5); Hematocrit 44.8 % (40-54); Hemoglobin 14.8 g/dL (13.0-16.5); Lymphocyte # 2.23 X10^3/ul (4.0); Lymphocyte % 25.6 % (19-41); Mean Corpuscular Hgb 29.7 pg (27.0-32.0); Mean Platelet Vol. 11.2 fl (6.2-12.0); Monocyte# 0.45 X10^3/uL; Monocyte% 5.2 % (0-10); NRBC Flagged by Analyzer 0 % (0-5); Neutrophil # 5.69 X10^3/uL (2.7-7.7); Neutrophil % 65.1 % (47-70); Platelet Count 249 K/mm3 (150-450); RBC Distribution Width CV 12.2 % (11.6-14.6); RBC Distribution Width SD 40.2 fl (35.1-43.9); Red Blood Count 4.98 M/mm3 (4.6-6.2); White Blood Count 8.7 K/mm3 (4.4-11.0)
[2020-06-06 11:51] LABS: International Normalized Ratio 1.2; Prothrombin Time (Protime)PT. 14.8 SECONDS (11.7-14.9)
[2020-06-06 11:52] LABS: Partial Thromboplast Time 33.1 Seconds (24.1-36.2)
[2020-06-06 11:57] LABS: Anion Gap 6 (5-15); BUN 11 mg/dL (7-18); BUN/Creat Ratio 15.2 RATIO (10-20); Calcium,Total 8.9 mg/dL (8.5-10.1); Chloride 107 mmol/L (98-107); Creatinine, Serum 0.72 mg/dL (0.70-1.30); EST Glomerular Filtration Rate 133 mL/min (>60); Est Glom Filt Rate - Afr Amer 161 mL/min (>60); Estimated Creatinine Clearance 166.46 ml/min; Glucose 91 mg/dL (74-106); Sodium Level 140 mmol/L (136-145)
--- NOTE | 2020-06-06 12:20 | CT_ITS ---
STUDY: CTA HEAD AND NECK WITH CONTRAST REASON FOR EXAM: Male, 34 years old. LUE ARM N/T RADIATION DOSAGE (If Supplied By Facility): CTDIvol = ( 21.72 ) mGy, DLP = ( 706.85 ) mGycm TECHNIQUE: CT angiography was performed with a multi-detector CT scanner. Data acquisition was obtained from the skull base through the vertex following intravenous administration of Isovue 370 100ml. MIP images were reconstructed from the axial data set. Post-processing of the angiographic images was performed, with multiplanar reformation and 3D reconstruction. Individualized dose optimization techniques were used for this CT. COMPARISON: No relevant priors. FINDINGS: Normal bilateral petrous carotid arteries. Normal right cavernous carotid artery with a normal supraclinoid bifurcation. Normal left cavernous carotid artery with a normal supraclinoid bifurcation. Normal right A1 segments of the anterior cerebral artery. Normal left A1 segments of the anterior cerebral artery. Normal intact anterior communicating artery (ACOM). Normal bilateral A2 segments of the anterior cerebral arteries. Normal right M1 and M2 segments of the middle cerebral arteries, with a normal M1 bifurcation. Normal left M1 and M2 segments of the middle cerebral arteries, with a normal M1 bifurcation. Normal right posterior communicating artery (PCOM). Normal left posterior communicating artery (PCOM). Normal bilateral vertebral arteries. Normal basilar artery with a normal basilar bifurcation. The visualized bilateral superior cerebellar (SCA) arteries are normal. Normal bilateral P1, P2 and visualized P3 segments of the posterior cerebral arteries. There is no demonstrated aneurysm of the [place] of [place]. There is no demonstrated abnormality of the visualized brain. AORTIC ARCH: Normal visualized aortic arch. Normal origins of the brachiocephalic, left common carotid, and left subclavian arteries. RIGHT CAROTID ARTERIES: Normal right common carotid artery (CCA). Normal right common carotid bulb. Normal origin of the right internal carotid (ICA) artery without a hemodynamically significant stenosis. Normal visualized cervical portion of the right internal carotid artery. Normal origin of the right external carotid artery (ECA). LEFT CAROTID ARTERIES: Normal left common carotid artery (CCA). Normal left common carotid bulb. Normal origin of the left internal carotid (ICA) artery without a hemodynamically significant stenosis. Normal visualized cervical portion of the left internal carotid artery. Normal origin of the left external carotid artery (ECA). VERTEBRAL ARTERIES: Normal bilateral vertebral arteries. CT/CTA Head AND Neck W/ Contrast IMPRESSION: Normal CTA Head and neck with contrast. Electronically Signed: Ramon Todd, at 13:14 EDT , Service support ,
--- NOTE | 2020-06-06 14:12 | ED.VISSUMM ---
- ER Visit Summary Date of Service: 06/06/20 Chief Complaint: Left arm numbness History of Present Illness: The patient is a 34 M with no primary care physician. He reports that 3 days ago he woke from sleep and had numbness of his left arm that lasted 2 to 3 hours. States that he was fine 2 days ago. Yesterday he woke from sleep and had numbness in his left arm last approximately 1 hour. Patient reports this morning at 945 he had left upper extremity numbness and weakness that began abruptly. He denies any other numbness or weakness. No change in his speech. No change in his vision. No vertigo. He has never had anything like this before. Physical Examination: Vitals: Stable. Afebrile. General: Well-nourished and well-developed. Head: Normocephalic atraumatic. Neck: Supple, no lymphadenopathy. No JVD. Nontender. Cardiovascular: Regular rate and rhythm. No murmurs. Respiratory: No respiratory distress. Clear to auscultation bilaterally. Abdominal: Soft, nontender, nondistended, normal bowel sounds. No guarding, rebound, or peritoneal signs. Back: Nontender. Extremities: Nontender, no edema. Skin: Normal color, no rash. Neurologic: Alert and oriented ?3. Cranial nerves II through XII are intact. Normal sensation. 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 Psych: Normal affect. Test Results: EKG is sinus at 65. CBC is normal. Chem-7 is normal. Coags are normal. Troponin is less than 0.015. Clinical Impression(s) from Imaging Studies Brain CT 06/06/20 11:09 IMPRESSION: There is no intracranial hemorrhage. N.B. : The above information has been verbally conveyed by Beba Turpin MD to Surinder Licea [phone], on 06/06/2020 11:29:51 (ET). Electronically Signed: Beba Turpin MD at 11:30 EDT Tel , Service support , ADDENDUM: 06/06/20 1137 IMPRESSION: There is no intracranial hemorrhage. N.B. : The above information has been verbally conveyed by Beba Turpin MD to Surinder Centenofgren [phone], on 06/06/2020 11:29:51 (ET). Electronically Signed: Beba Turpin MD at 11:30 EDT Tel , Service support , Chest X-Ray 06/06/20 11:09 IMPRESSION: Normal x-ray examination of the chest. Electronically Signed: Ramon Todd, at 12:19 EDT , Service support , Head/Neck CTA 06/06/20 12:20 IMPRESSION: Normal CTA Head and neck with contrast. Electronically Signed: Ramon Todd, at 13:14 EDT , Service support , Emergency Department Course and Treatment: Patient's NIH scale would be 1 given the weakness in his left hand. This is his nondominant hand. I feel that this is is likely to be peripheral in nature as it is to be central. I do not think he is a TPA candidate. He was discussed with Dr. Caal, the neurologist from [facility], who is spoken with the patient as well and she agrees. Treatment Plan: Discussed the patient this time I do not have an explanation for his symptoms. I have suggested admission to the hospital as did the a neurologist. The patient is refusing this. Is instructed to follow-up with Dr. Cohen or Dr. Oh, the neurologist, as soon as possible. Return to the emergency department for any worsening symptoms. Disposition: To home in improved and stable condition. Impression: 1. Left upper extremity numbness/weakness. 2. Left AGAINST MEDICAL ADVICE. This note was generated with [employer] software. It may contain incorrect words, spelling, and punctuation that were not noted in review of the chart prior to signing ED Disposition - Plan for ED Patient: Disposition: Against Medical Advice Instructions: ED Weakness [facility] Referrals: Daniel Oh MD [STAFF PHYSICIAN] - As soon as possible Jennifer Cohen MD [STAFF PHYSICIAN] - As soon as possible
== END 2020-06-06 14:34 | disposition left against medical advice (07) ==
PROVIDERS: Emergency Provider Emergency Medicine
DX: R20.0 Anesthesia of skin (principal); R53.1 Weakness; Z53.29 Procedure and treatment not carried out because of patient's decision for other reasons
CPT/HCPCS: 70450; 70496; 70498; 71045; 80048; 82962; 84484; 85025; 85610; 85730; 93005; 96360; 96361; 99284; J7030; Q9967; A4216

== ENCOUNTER 2021-07-25 09:31 | Emergency (ER) | payer MEDICAID, SELFPAY ==
[2021-07-25 09:32] VITALS: BP 129/101; PULSE 95; RESP 18; TEMP 36.4; O2SAT 97; BMI 36.0
--- NOTE | 2021-07-25 09:45 | CT_ITS ---
STUDY: CT ABDOMEN AND PELVIS WITH CONTRAST REASON FOR EXAM: Male, 35 years old. RLQ pain with nausea and vomiting and body aches. RADIATION DOSAGE (If Supplied By Facility): CTDIvol = ( 16.81 ) mGy, DLP = ( 1340.41 ) mGycm TECHNIQUE: Transaxial images were obtained from the dome of the diaphragm to the symphysis pubis without oral contrast. IV 100mL Isovue-300 was administered. Sagittal and coronal images were reconstructed. Individualized dose optimization techniques were used for this CT. COMPARISON: Comparison is made with prior examination dated 09/25/2017. FINDINGS: The visualized lung bases are unremarkable. The visualized portions of the heart are within normal limits. Normal liver. Normal gallbladder and extrahepatic biliary system. Normal spleen. Normal pancreas. Normal bilateral adrenal glands. Normal right kidney. Normal left kidney. Normal visualized stomach. Normal small intestine. Normal colon. The appendix is visualized and appears normal. Small lymph nodes are seen in the mesenteric fat in the right lower quadrant suggestive of mesenteric adenitis. Normal abdominal aorta. Normal inferior vena cava. Normal retroperitoneum. Normal urinary bladder. Small benign appearing bilateral inguinal lymph nodes. Normal abdominal wall. Loss of the normal lumbar lordosis. CT/Abdomen/Pelvis W IV Cont ONLY IMPRESSION: Findings suggestive of mesenteric adenitis within the mesenteric fat in the right lower quadrant. Electronically Signed: Ramon Todd MD at 10:58 EDT , Service support ,
--- NOTE | 2021-07-25 09:46 | EX.ED.DYSGE1 ---
HPI History of Present Illness Chief Complaint: General Illness Detail of Chief Complaint: fever Informant: patient Onset/Context/Timing Onset: Yesterday Context: Gradual Onset Timing: Waxes and wanes Quality: 103 Current Severity: Gone Maximum Severity: Severe Worsened by: nothing Relieved by: tylenol Associated Symptoms Associated Symptoms: body aches, n/v, abd pain Narrative Narrative: Patient states 1 week ago he started having right lower quadrant sharp abdominal pain gradually, it worsened, and then 3 or 4 days later he had a good bowel movement that seemed to improve the pain significantly, but he is still having the sharp pains intermittently. Yesterday, he started having fevers with T-max 103, body aches, he became nauseated and vomited once, the nausea is gone now and the abdominal pain is less but he still has body aches and significant malaise. He was in contact with someone with Covid 3 weeks ago, he subsequently had a Covid test that was negative. No other known contacts. He has not been vaccinated against Covid. He denies any history of abdominal surgeries. He denies any bright red blood per rectum or melena, urinary symptoms. He had some diarrhea yesterday but a normal solid bowel movement today. [facility] Medical History Anxiety and depression Home Medications quetiapine 25 mg PO QHS PRN 11/16/18 [History Last Taken Unknown] sertraline 200 mg PO DAILY 11/16/18 [History Last Taken Unknown] Allergy/AdvReac Type Severity Reaction Status Date / Time dimethicone Allergy Hives Verified 07/25/21 09:32 [From A & D Emollient] glycerin Allergy Hives Verified 07/25/21 09:32 [From A & D Emollient] latex Allergy Hives Verified 07/25/21 09:32 stearyl alcohol Allergy Hives Verified 07/25/21 09:32 [From A & D Emollient] narcotics AdvReac Vomiting Uncoded 07/25/21 09:32 Social History Smoking Status: Never smoker ROS ROS ED Constitutional Constitutional ED: Reports body ache(s), chills, fatigue, fever(s), headache(s) and malaise Eyes Eyes: Denies change in vision or diplopia ENT ENT ED: Reports other Details: Mild right ear pain and tinnitus no discharge ; Denies rhinorrhea or sore throat Cardiovascular Cardiovascular: Denies chest pain or palpitations Respiratory/Chest Respiratory/Chest: Denies cough or dyspnea Gastrointestinal Gastrointestinal: Reports as per HPI and abdominal pain; Denies diarrhea, nausea or vomiting Genitourinary Genitourinary ED: Denies dysuria or hematuria Musculoskeletal Musculoskeletal: Reports myalgias; Denies back pain or neck pain Integumentary Denies abscess or rash Neurologic Neurologic: Reports headache(s); Denies paresthesias or weakness Psychiatric Psychiatric: Denies anxiety or suicidal thoughts EXAM Physical Exam Const Vital Signs: 07/25/21 09:32 Temperature 97.5 F L Temperature Source Temporal Pulse Rate 95 Respiratory Rate 18 Blood Pressure 129/101 H Blood Pressure Mean 110 Pulse Ox 97 Oxygen Delivery Method Room Air Positive well nourished and well developed General Appearance ED: well developed and NAD HEENT Reports moist mucous membranes normocephalic and atraumatic Eyes PERRL and EOMs intact bilaterally Neck full ROM and supple Resp normal respiratory effort and clear to auscultation bilaterally Cardio regular rate, regular rhythm and no murmurs Rate: Negative for tachycardic GI non-distended GI Narrative: Mild tenderness throughout the right lower quadrant nonfocal, no guarding or rebound tenderness, no other areas of tenderness. Auscultation: normoactive bowel sounds Palpation: soft Back/Spine no CVA tenderness General Back: other FROM Extremity normal to inspection General Extremety ED: Negative for edema, pulses abnormal or tenderness General Extremity: Negative for edema or pulses abnormal Neuro oriented x3, CN's II-XII intact bilaterally and no sensory deficits noted Sensorium / Orientation: awake and alert Motor Exam: strength 5/5 throughout Skin no rashes or lesions noted and no wounds MDM MDM MDM Narrative Medical decision making narrative: Patient is negative Covid testing since he has a mild leukocytosis with a trend toward a mild left shift, I think it is a true negative. The rest of his tests are as below, remarkable for mesenteric adenitis and a normal appendix. Given all of the symptoms I think he probably has a viral syndrome that is not Covid. He is reassured, NSAIDs and time/supportive care indicated, outpatient follow-up in a week if he is not better, we discussed reasons to return he is comfortable with that plan Lab Data Attestation: I reviewed the patient's lab results. Labs: Laboratory Results - last 24 hr 07/25/21 07/25/21 07/25/21 10:00 10:00 11:20 WBC 11.3 H RBC 5.01 Hgb 14.8 Hct 43.0 MCV 85.8 MCH 29.5 MCHC 34.4 RDW Std Deviation 37.1 RDW Coeff of Tom 11.8 Plt Count 240 MPV 10.3 Immature Gran % (Auto) 0.400 Neut % (Auto) 80.7 H Lymph % (Auto) 12.9 L [place] % (Auto) 5.0 Eos % (Auto) 0.6 Baso % (Auto) 0.4 Absolute Neuts (auto) 9.1 H Absolute Lymphs (auto) 1.46 Nucleated RBC % 0 Sodium 137 Potassium 3.8 Chloride 105 Carbon Dioxide 26.0 Anion Gap 6 BUN 8 Creatinine 0.78 Estim Creat Clear Calc 152.23 Est GFR (MDRD) Af Amer 147 Est GFR (MDRD) Non-Af 122 BUN/Creatinine Ratio 10.3 Glucose 95 Calcium 8.9 Total Bilirubin 0.60 AST 19 ALT 34 Alkaline Phosphatase 71 Total Protein 7.7 Albumin 3.8 Globulin 3.9 Albumin/Globulin Ratio 1.0 Urine Color Yellow Urine Clarity Clear Urine pH 8.0 Ur Specific [place] 1.010 Urine Protein Negative Urine Glucose (UA) Normal Urine Ketones Negative Urine Occult Blood Negative Urine Nitrite Negative Urine Bilirubin Negative Urine Urobilinogen Normal Ur Leukocyte Esterase Negative Urine RBC 0 SEEN Urine WBC 0 SEEN Ur Squamous Epith Cells 0-5 SEEN Urine Bacteria 0 SEEN Urine Mucus 0 SEEN Radiography Diagnostic Testing: Radiology Impression Abdomen/Pelvis CT 07/25/21 09:45 IMPRESSION: Findings suggestive of mesenteric adenitis within the mesenteric fat in the right lower quadrant. Electronically Signed: Ramon Todd MD at 10:58 EDT , Service support , Discharge Plan Triage Chief Complaint: General Illness ED Provider: Abraham Joya Dx/Rx/DC Orders Clinical Impression: Acute mesenteric adenitis, Acute viral syndrome Instructions: ED Viral Syndrome (Adult), ED Adenitis, Mesenteric Prescriptions: No Action sertraline 100 MG tablet 200 mg PO DAILY RF: 0 quetiapine 25 MG tablet 25 mg PO QHS PRN (Reason: Sleep) RF: 0 Stand Alone Forms: ED Work / School Excuse Primary Care Provider: Care Physician,No Primary Referrals: Ava Tapia [NON-STAFF] - 1 Week if not improving Care Physician,No Primary [Primary Care Provider] - Disposition Disposition: Home, Self Care
[2021-07-25 10:03] LABS: Absolute Lymphocyte Count 1.46 X10^3/uL (0.83-4.51); Absolute Neutrophil Count 9.1 X10^3/uL (2.0-7.7); Basophil# 0.05 X10^3/uL; Basophil% 0.4 % (0-1); Eosinophil# 0.07 X10^3/uL; Eosinophils% 0.6 % (0-5); Hemoglobin 14.8 g/dL (13.0-16.5); Lymphocyte # 1.46 X10^3/ul (0.83-4.51); Lymphocyte % 12.9 % (19-41); Mean Corp Hgb Conc 34.4 g/dL (32-36); Mean Corpuscular Hgb 29.5 pg (27.0-32.0); Mean Corpuscular Volume 85.8 fL (80-94); Mean Platelet Vol. 10.3 fl (6.2-12.0); Monocyte# 0.57 X10^3/uL; NRBC Flagged by Analyzer 0 % (0-5); Neutrophil # 9.12 X10^3/uL (2.7-7.7); Neutrophil % 80.7 % (47-70); Platelet Count 240 K/mm3 (150-450); RBC Distribution Width CV 11.8 % (11.6-14.6); RBC Distribution Width SD 37.1 fl (35.1-43.9); Red Blood Count 5.01 M/mm3 (4.6-6.2); White Blood Count 11.3 K/mm3 (4.4-11.0)
[2021-07-25] MEDS: Ketorolac 30 MG/ML Syringe IV (10:07)
[2021-07-25] MEDS: 0.9% Normal Saline 1,000 ML 1000 ML IV (10:08)
[2021-07-25 10:23] LABS: AST(SGOT) 19 U/L (15-37); Alanine Aminotransfer ALT/SGPT 34 U/L (16-61); Albumin, Serum 3.8 g/dL (3.2-5.0); Alkaline Phosphatase 71 U/L (45-117); Anion Gap 6 (5-15); BUN 8 mg/dL (7-18); BUN/Creat Ratio 10.3 RATIO (10-20); Calcium,Total 8.9 mg/dL (8.5-10.1); Chloride 105 mmol/L (98-107); Creatinine, Serum 0.78 mg/dL (0.70-1.30); EST Glomerular Filtration Rate 122 mL/min (>60); Est Glom Filt Rate - Afr Amer 147 mL/min (>60); Estimated Creatinine Clearance 152.23 ml/min; Globulin 3.9 g/dL (2.2-4.2); Glucose 95 mg/dL (74-106); Potassium 3.8 mmol/L (3.5-5.1); Protein, Total 7.7 g/dL (6.4-8.2); Sodium Level 137 mmol/L (136-145)
--- NOTE | 2021-07-25 11:21 | CM.ED ---
AMELIA Note: Referral Source: Case Find Referral Reason: No Primary Care Physician (PCP) Sw reviewed chart and noted patient has no PCP. SW introduced self to patient. He confirmed he has no PCP. He was provided with list of [facility] Providers including [facility] providers. Patient inquired if all the providers are in network and SW said that patient needs to call to check if the provider is in network with his insurance. SW also provided handout titled where to go and when. Patient reports no other issues or concerns. SW remains available. Plan: Provided patient with PCP resources Cindy DAHL
[2021-07-25 11:30] LABS: Bacteria 0 SEEN /hpf (None Seen); Mucous, Urine 0 SEEN /hpf (<or=2+); Red Blood Cells-Urine 0 SEEN /hpf (0-5); White Blood Cells 0 SEEN /hpf (0-5)
[2021-07-25 11:33] LABS: Color, Urine Yellow (Yellow); Glucose, Dipstick Normal (Normal); Ketone-Dipstick Negative (Negative); Leukocyte Esterase-Dipstick Negative /ul (Negative); Nitrite-Dipstick Negative (Negative); Occult Blood-Urine Negative /ul (Negative); Protein-Dipstick Negative (Negative); Urine Bilirubin Dipstick Negative (Negative); Urine Clarity Clear (Clear); Urine Urobilinogen Normal (Normal)
[2021-07-25 11:44] LABS: Squamous Epithelial Cells - UA 0-5 SEEN /hpf (0-5)
[2021-07-25 12:51] VITALS: PULSE 81; RESP 18; O2SAT 100
--- NOTE | 2021-07-25 12:52 | ED.RN ---
THIS NURSE REVIEWED D/C INSTRUCTIONS WITH PT. PT VERBALIZED UNDERSTANDING OF INSTRUCTIONS. IV D/C. IV CATHETER INTACT. PT TOLERATED WELL. PT DENIES FURTHER NEEDS OR QUESTIONS AT THIS TIME. PT AMBULATES FROM ROOM ON OWN WITHOUT ASSISTANCE FROM STAFF
== END 2021-07-25 12:53 | disposition home or self-care (01) ==
PROVIDERS: Emergency Provider Emergency Medicine
DX: B34.9 Viral infection, unspecified (principal); I88.0 Nonspecific mesenteric lymphadenitis; F32.9 Major depressive disorder, single episode, unspecified; F41.9 Anxiety disorder, unspecified
CPT/HCPCS: 74177; 80053; 81001; 85025; 87426; 96361; 96374; 99283; J7030; Q9967; A4216

== ENCOUNTER 2024-01-01 05:39 | Emergency (ER) | payer MEDICAID, SELFPAY ==
[2024-01-01 05:40] VITALS: BP 164/93; PULSE 61; TEMP 36.5; O2SAT 98; BMI 35.4
[2024-01-01 05:45] VITALS: BP 149/90
--- OUTSIDE RECORDS SUMMARY | 2024-01-01 06:04 | XMS RPT_ITS | CCD ---
Author Name Unknown Address [id number] [place] [address] Organization [facility] Care Team Providers Care Echocardiography Radiology Technologist Name Role Phone SELF, SELF Referring Unavailable Shasha ESTRELLA, Vilma Primary Care Provider Vilma Jain MD Primary Care Provider [phone] SHASHA, VILMA Primary Care Unavailable CARMELA WINSLOW Attending Unavailable TELLING, PADMINI Referring Unavailable GANTA, VILMA Primary Care Unavailable CARMELA WINSLOW Attending Unavailable TELLING, PADMINI Referring Unavailable GANTA, VILMA Primary Care Unavailable CARMELA WINSLOW Attending Unavailable TELLING, PADMINI Referring Unavailable GANTA, VILMA Primary Care Unavailable CARMELA WINSLOW Attending Unavailable TELLING, PADMINI Referring Unavailable PRASANTH PATEL Attending Unavailable GANTA, VILMA Primary Care Unavailable JB TORREZ Referring Unavailable GANTA, VILMA Primary Care Unavailable CARMELA WINSLOW Attending Unavailable TELLING, PADMINI Referring Unavailable TELLING, PADMINI Referring Unavailable GANTA, VILMA Primary Care Unavailable CARMELA WINSLOW Attending Unavailable GANTA, VILMA Primary Care Unavailable CARMELA WINSLOW Attending Unavailable TELLING, PADMINI Referring Unavailable GANTA, VILMA Primary Care Unavailable GANTA, VILMA Primary Care Unavailable MARCO SHEIKH Attending Unavailable TELLING, PADMINI Referring Unavailable GANTA, VILMA Primary Care Unavailable TELLING, PADMINI Referring Unavailable PRASANTH PATEL Attending Unavailable GANTA, VILMA Primary Care Unavailable JB TORREZ Referring Unavailable GANTA, VILMA Primary Care Unavailable CARMELA WINSLOW Attending Unavailable TELLING, PADMINI Referring Unavailable GANTA, VILMA Primary Care Unavailable CARMELA WINSLOW Attending Unavailable TELLING, PADMINI Referring Unavailable GANTA, VILMA Primary Care Unavailable MARCO SHEIKH Attending Unavailable TELLING, PADMINI Referring Unavailable SALUANPRASANTH Admitting Unavailable SALUAN, PRASANTH Hairston Attending Unavailable GANTA, VILMA Primary Care Unavailable TELLING, PADMINI Referring Unavailable GANTA, VILMA Primary Care Unavailable GANTA, VILMA Primary Care Unavailable GOLDY, CARMELA Attending Unavailable TELLING, PADMINI Referring Unavailable GANTA, VILMA Primary Care Unavailable SHEIKH, MARCO Attending Unavailable TELLING, PADMINI Referring Unavailable GANTA, VILMA Primary Care Unavailable MARCO SHEIKH Attending Unavailable TELLING, PADMINI Referring Unavailable GANTA, VILMA Primary Care Unavailable GOLDY, CARMELA Attending Unavailable TELLING, PADMINI Referring Unavailable GANTA, VILMA Primary Care Unavailable JB TORREZ Referring Unavailable TELLING, PADMINI Referring Unavailable GANTA, VILMA Primary Care Unavailable GOLDY, CARMELA Attending Unavailable GANTA, VILMA Primary Care Unavailable GOLDY, CARMELA Attending Unavailable TELLING, PADMINI Referring Unavailable GANTA, VILMA Primary Care Unavailable SALZANDRA, PRASANTH Hairston Referring Unavailable GANTA, VILMA Primary Care Unavailable TELLING, PADMINI Attending Unavailable GANTA, VILMA Primary Care Unavailable TELLING, PADMINI Attending Unavailable GANTA, VILMA Primary Care Unavailable GANTA, VILMA Primary Care Unavailable TELLING, PADMINI Attending Unavailable SALZANDRA, PRASANTH Hairston Attending Unavailable GANTA, VILMA Primary Care Unavailable GANTA, VILMA Primary Care Unavailable TELLING, PADMINI Referring Unavailable GANTA, VILMA Primary Care Unavailable SALZANDRA, PRASANTH Hairston Attending Unavailable Allergies Allergy Classification Reported Allergen(s) Allergy Type Date of Onset Reaction(s) Facility (20 sources) Acetaminophen / HYDROcodone; Translations: [HYDROCODONE-ACET AMINOPHEN] Drug Allergy 09-25-20 17 Intolerance, Vomiting [facility] (20 sources) Acetaminophen / oxyCODONE; Translations: [OXYCODONE-ACETAM INOPHEN] Drug Allergy 09-25-20 17 Intolerance, Other: See Comments [facility] (20 sources) Latex; Translations: [LATEX] Allergy to substance 08-25-20 05 Hives [facility] Work Phone: (20 sources) Morphinan opioid; Translations: [OPIOIDS - MORPHINE ANALOGUES] Drug Intolerance 09-25-20 17 Vomiting [facility] (20 sources) a & d ointment [Other] Propensity to adverse reactions 08-30-20 05 [facility] Work Phone: (1 source) OTHER; Translations: [OTHER] Propensity to adverse reactions (disorder) 08-30-[address] [facility] Repository Medications Current Medications Medication Drug Class(es) Dates Sig (Normalized) Sig (Original) doxycycline monohydrate 100 mg oral tablet (3 sources) Tetracycline-clas s Drug Start: 01-17-2023 End: 01-24-2023 take 1 tablet by mouth twice daily doxycycline monohydrate 100 mg tablet Indications: Infection of right ear lobe Take 1 tablet by mouth twice daily for 7 days. 14 tablet 0 01/17/2023 01/24/2023 Active Completed/Discontinued Medications Medication Drug Class(es) Dates Sig (Normalized) Sig (Original) [id number] 200 actuat albuterol 0.09 mg/actuat metered dose inhaler (6 sources) beta2-Adrenergic Agonist Start: 03-21-2021 End: 02-28-2023 take 2 puff(s) by inhalation every four hours as needed for wheezing albuterol HFA (VENTOLIN HFA) 90 mcg/actuation inhaler Indications: Nocturnal cough with wheeze Inhale 2 Puffs as instructed every 4 hours as needed for Wheezing/Shortness of Breath. 18 g 0 03/21/2021 02/28/2023 Discontinued Problems Active Problems Problem Classification Problem Date Documented Date Episodic/Chronic Anxiety disorders (20 sources) Generalized anxiety disorder; Translations: [Generalized anxiety disorder] 03-21-2021 Chronic Nausea and vomiting (1 source) Nausea; Translations: [Nausea] Episodic Osteoarthritis (1 source) Arthritis of right acromioclavicular joint; Translations: [Primary osteoarthritis, right shoulder] Chronic Other aftercare (20 sources) Surgical follow-up; Translations: [Encounter for follow-up examination after completed treatment for conditions other than malignant neoplasm] Onset: 03-19-2023 Episodic Other connective tissue disease (1 source) Non-traumatic partial tear of right rotator cuff; Translations: [Incomplete rotator cuff tear or rupture of right shoulder, not specified as traumatic] Episodic Other ear and sense organ disorders (1 source) Infection of ear lobe; Translations: [Other infective otitis externa, right ear] Episodic Other endocrine disorders (20 sources) Testicular hypofunction; Translations: [Testicular hypofunction] 07-08-2017 Chronic Other infections; including parasitic (20 sources) History of chlamydial infection; Translations: [Personal history of other infectious and parasitic diseases] 07-08-2017 Episodic Other nervous system disorders (1 source) Other chronic pain; Translations: [Chronic right shoulder pain] Onset: 05-30-2023 Chronic Other non-traumatic joint disorders (4 sources) Pain in right knee; Translations: [Pain in joint, lower leg] Onset: 01-28-2023 Episodic Other non-traumatic joint disorders (2 sources) Instability of right patellofemoral joint; Translations: [Other instability, right knee] Episodic Other non-traumatic joint disorders (1 source) Chronic pain of right upper limb; Translations: [Pain in right shoulder] Episodic Other non-traumatic joint disorders (1 source) Pain in right shoulder; Translations: [Chronic right shoulder pain] Onset: 05-30-2023 Episodic Other nutritional; endocrine; and metabolic disorders (20 sources) Obesity; Translations: [Other obesity due to excess calories] Onset: 04-02-2018 04-02-2018 Chronic Other nutritional; endocrine; and metabolic disorders (1 source) Obesity, unspecified; Translations: [Class 1 obesity without serious comorbidity with body mass index (BMI) of 34.0 to 34.9 in adult, unspecified obesity type] Onset: 02-28-2023 Chronic Other nutritional; endocrine; and metabolic disorders (1 source) Body mass index (BMI) 34.0-34.9, adult; Translations: [Class 1 obesity without serious comorbidity with body mass index (BMI) of 34.0 to 34.9 in adult, unspecified obesity type] Onset: 02-28-2023 Chronic Past or Other Problems Problem Classification Problem Date Documented Date Episodic/Chronic Joint disorders and dislocations; trauma-related (20 sources) Dislocation of patellofemoral joint; Translations: [Unspecified dislocation of right patella, initial encounter] Onset: 03-19-2023 Episodic Other aftercare (1 source) Encounter for follow-up examination after completed treatment for conditions other than malignant neoplasm; Translations: [S/P orthopedic surgery, follow-up exam] Onset: 03-19-2023 Episodic Other nervous system disorders (1 source) Other acute postprocedural pain; Translations: [Acute post-operative pain] Onset: 03-08-2023 Episodic Other non-traumatic joint disorders (1 source) Other instability, right knee; Translations: [Patellar instability of right knee] Onset: 02-11-2023 Episodic Substance-related disorders (20 sources) Marijuana user; Translations: [Cannabis use, unspecified, uncomplicated] Onset: 02-28-2023 02-28-2023 Episodic Results Test Name Value Interpretation Reference Range Facil ity Vital Signs Date Time Vital Sign Value Performing Clinician Georges ortega 02-03-2023 08:38-0500 Body temperature 97.81 [degF] Maria Eugenia Enamorado APRN.[employer] Work Phone: [facility] 02-03-2023 08:38-0500 Body weight 118.66 kg Maria Eugenia Enamorado APRN.[employer] Work Phone: [facility] 02-03-2023 08:38-0500 Diastolic blood pressure 80 mm[Hg] Maria Eugenia Enamorado APRN.[employer] Work Phone: [facility] 02-03-2023 08:38-0500 Heart rate 73 /min Maria Eugenia Enamorado APRN.[employer] Work Phone: [facility] 02-03-2023 08:38-0500 Respiratory rate 16 /min Maria Eugenia Enamorado APRN.[employer] Work Phone: [facility] 02-03-2023 08:38-0500 SaO2% (BldA) [Mass fraction] 95 % Maria Eugenia Enamorado APRN.[employer] Work Phone: [facility] 02-03-2023 08:38-0500 Systolic blood pressure 128 mm[Hg] Maria Eugenia Enamorado APRN.[employer] Work Phone: [facility] 01-17-2023 14:13-0500 Body temperature 97.2 [degF] Jb Torrez APRN.[employer] Work Phone: [facility] 01-17-2023 14:13-0500 Body weight 118.12 kg Jb Torrez APRN.[employer] Work Phone: [facility] 01-17-2023 14:13-0500 Diastolic blood pressure 78 mm[Hg] Jb Torrez APRN.[employer] Work Phone: [facility] 01-17-2023 14:13-0500 Heart rate 62 /min bJ Torrez APRN.[employer] Work Phone: [facility] 01-17-2023 14:13-0500 Respiratory rate 16 /min Jb Torrez APRN.[employer] Work Phone: [facility] 01-17-2023 14:13-0500 SaO2% (BldA) [Mass fraction] 97 % Jb Torrez APRN.[employer] Work Phone: [facility] 01-17-2023 14:13-0500 Systolic blood pressure 122 mm[Hg] Jb Torrez APRN.[employer] Work Phone: [facility] Encounters Encounter Date Encounter Type Care Provider Facility Start: 06-18-2023 End: 06-18-2023 ambulatory [facility] Facility:[facility] Start: 06-18-2023 End: 06-18-2023 ambulatory Carmela Winslow PT Work Phone: [facility] Start: 06-18-2023 End: 06-18-2023 Follow-up encounter Carmela Winslow PT Work Phone: [facility] Physical Therapy Procedures Date Procedure Procedure Detail Performing Clinician Start: 02-11-2023 Mri any jt lower ext rem w/o contrast matrl Padmini Telling PA-C Work Phone: Start: 01-17-2023 Radiologic exam knee complete 4/more views Jb Torrez APRN.[employer] Work Phone: Start: 07-03-2017 Lipid 1996 panel - S hernando or Plasma Mri (I-Stat/1.5t) Plan of Treatment Date Care Activity Detail Author Start: 04-12-2024 Urine microalbumin profile [facility] Start: 08-02-2023 Influenza vaccination [facility] Start: 2022 Lipid 1996 panel - Serum or Plasma Lipid Screening [facility] Start: 2022 LIPID SCREEN LIPID SCREEN [facility] Start: 12-02-2022 DEPRESSION ASSESSMENT DEPRESSION ASSESSMENT [facility] Start: 08-02-2022 Influenza vaccination INFLUENZA (#1) [facility] Start: 09-22-2005 HEPATITIS B (2 of 3 - 3-dose series) HEPATITIS B (2 of 3 - 3-dose series) [facility] Start: 09-22-2005 Hepatitis B Vaccine (2 of 3 - 3-dose series) Hepatitis B Vaccine (2 of 3 - 3-dose series) [facility] Start: 06-15-1988 COVID-19 VACCINE (#1) COVID-19 VACCINE (#1) [facility] PT PLAN OF CARE CERTIFICATION PT PLAN OF CARE CERTIFICATION Procedures Routine Patellar dislocation, right, initial encounter S/P orthopedic surgery, follow-up exam Ordered: 05/28/2023 [facility] Work Phone: Immunizations Immunization Date Immunization Notes Care Provider Fa debi 04-12-2014 tetanus toxoid, redu isabela diphtheria toxoid, and acellular pertussis vaccine, adsorbed Jb Torrez APRN.[facility] Work Phone: [facility] 08-25-2005 hepatitis B vaccine, pediatric or pediatric/adolescent dosage Jb Torrez APRN.[employer] Work Phone: [facility] Work Phone: 08-25-2005 hepatitis B vaccine, unspecified formulation Jb Torrez APRN.[facility] Work Phone: [facility] 02-26-1990 haemophilus influenz ae type b vaccine, PRP-D conjugate Jb Torrez APRN.[facility] Work Phone: [facility] Work Phone: 11-05-1989 diphtheria, tetanus toxoids and acellular pertussis vaccine Jb Torrez APRN.[employer] Work Phone: [facility] Work Phone: 11-05-1989 measles, mumps and rubella virus vaccine Jb Torrez [employer] ADMINISTRATOR.[employer] Work Phone: [facility] Work Phone: 11-05-1989 trivalent poliovirus vaccine, live, oral Jb Torrez APRN.[employer] Work Phone: [facility] Work Phone: 07-06-1988 diphtheria, tetanus toxoids and acellular pertussis vaccine Jb Shan S[employer]IOR [employer] ADMINISTRATOR.[employer] Work Phone: [facility] Work Phone: 05-25-1988 diphtheria, tetanus toxoids and acellular pertussis vaccine Jb Torrez S[employer]IOR [employer] ADMINISTRATOR.[employer] Work Phone: [facility] Work Phone: 05-25-1988 trivalent poliovirus vaccine, live, oral Jb Shan SENIOR [employer] ADMINISTRATOR.[employer] Work Phone: [facility] Work Phone: 04-02-1988 diphtheria, tetanus toxoids and acellular pertussis vaccine Jb Shan SENIOR [employer] ADMINISTRATOR.[employer] Work Phone: [facility] Work Phone: 04-02-1988 trivalent poliovirus vaccine, live, oral Jb Shan S[employer]IOR [employer] ADMINISTRATOR.[employer] TE[employer] Work Phone: [facility] Work Phone: Payers Date Payer Category Payer Medicaid [id number] 2023 Medicaid [id number] 2020 Unknown [id number] 1987 Unknown [id number] Social History Date Type Detail Facility [facility]: [facility] End: 12-02-2014 History of tobacco use Current smoker [facility] End: 12-02-2014 History of tobacco use Cigarette Smoker [facility] Start: 01-17-2023 End: 01-28-2023 Cigarettes smoked current (pack per day) - Reported 0.2 [facility] Start: 01-17-2023 Tobacco use and exposure Smoke less tobacco non-user [facility] Start: 01-17-2023 End: 02-03-2023 Alcohol intake Current drinker of alcohol (finding) [facility] Start: 1987 Sex Assigned At Male [facility] Start: 02-28-2023 Alcohol Comment 12 drinks per week. [facility] Start: 01-28-2023 End: 02-28-2023 Tobacco use panel [facility] Adult Depression Screening Assessment 4 [facility] Start: 11-17-2020 Gender identity Identifies as male gender (finding) [facility] Start: 11-17-2020 Sexual orientation Heterosexual (gladys brown) [facility] Medical Equipment Procedure Code Equipment Code Equipment Original Text Equipment Identifier Dates Graft Semitendin osus Tendon Soft Tissue - [id number] Start: 03-08-2023 Clinical Notes 04-02-2018 to 06-18-2023 Carmela Winslow, PT - 06/18/2023 9:31 AM Carmela Hood PT - 06/11/2023 10:19 AM Warren Winslow PT - 06/06/2023 4:36 PM Albert Zazueta MD - 06/03/2023 8:15 AM EDT Note Date & Type Note Facility 06-18-2023 Note HNO ID: [id number] Author: Carmela Winslow PT Service: ? Author Type: Physical Therapist Type: Progress Notes Filed: 06/18/2023 10:01 AM Note Text: Episode Visit Count: 18 Therapist That Will Accept/Oversee The Plan Of Care: Carmela Winslow Start of Care Date: 03/19/23 Onset Date: 02/05/23 Plan of Care Certification Date: 05/28/23 Next Certification Due Date: 07/02/23 Patient Identified by Name and Date of : Yes REHABILITATION AND SPORTS THERAPY PHYSICAL THERAPY DISCONTINUANCE OF CARE PLAN OF CARE UPDATE: Assessment: Jean-Claudehugo Hairston Arnoldo is discontinued from Physical Therapy services due to goal achievement and maximal benefit.. Patient was seen for 18 visits from Start of Care Date: 03/19/23 to 06/18/2023 and treatment included: Therapeutic exercise, Neuromuscular re-education, Manual therapy, Self-jail management, Gait training, and Patient/Family/Caregiver Education. Goals updated 06/18/2023 Goals for Episode of Care: created on 03/19/23 through 07/09/23 [place] in home exercise program. - Met Perform squats, stair negotiation, and transfers without pain. - MET Increase ROM of RLE to WNL for return to PLOF and improved mechanics with gait - MET Increased strength of RLE to 5/5 for return to work. - MET Normal gait. - MET Reciprocal stair negotiation. - MET Patient Goals: Return to work SUBJECTIVE: Patient Reason for Visit: Worked out in the yard and worked 13 hours yesterday. Patient Goals: Return to work Functional Limitations: running Prior Level of Function: Independent without limitations Intake Information: Prescription present Previous Treatment: Surgery Pain: Pain Pain Location: Knee - Right Post Treatment Pain Post Treatment Pain Location: Knee - Right PROMIS Scales Higher is Better 05/31/2023 04/22/2023 Phys Func - Score 49 (within normal limits) 43 (mild dysfunction) Phys Func - Percentile 46 % 24 % Self-Eff Symptom - Score 54 (Average) - Self-Eff Symptom - Percentile 66 % - T-scores: mean of general population = 50. 5 points is clinically meaningfully difference Percentiles provide an indication of how the patient's score ranks in relation to the general population. Higher percentile rankings indicate better function/quality of life. 50th percentile is the average of the general population and indicates half of respondents had a worse score. OBJECTIVE MEASURES WITH LEVEL OF FUNCTION: LE AROM R LE AROM: WNL L LE AROM: WNL LE Flexibility Flexibility: Quadriceps Flexibility R Quadriceps Flexibility: WNL L Quadriceps Flexibility: WNL LE Strength R LE Strength: Grossly 5/5 L LE Strength: Grossly 5/5 Dynamometer Strength Right Quadriceps Strength (lbs): 90 Gait Gait Observation: Gait WNL Stairs: WNL When jogging pt lands mid-foot/forefoot on the RLE and mid-foot/heel srike LLE TREATMENT: Therapeutic Exercise: 1: All objective measures taken this session 2: Jogging on treadmill 5.1 mph x 3 min (watching form and advising pt on changes to running technique to normalize this) 3: Discussed finalized HEP Skilled Intervention: Patient was educated in proper exercise technique and purpose for exercises. Provided written instruction for home exercise program to facilitate proper performance and compliance. Correct performance of therapeutic exercises was facilitated with verbal and visual cuing. Billing Therapeutic Exercise Treatment Minutes: 30 Total Treatment Time Minutes (timed/untimed): 30 Carmela Winslow PT [facility] 06-18-2023 History of Presen t illness Narrative Episode Visit Count: 18 Therapist That Will Accept/Oversee The Plan Of Care: Carmela Winslow Start of Care Date: 03/19/23 Onset Date: 02/05/23 Plan of Care Certification Date: 05/28/23 Next Certification Due Date: 07/02/23 Patient Identified by Name and Date of : Yes REHABILITATION AND SPORTS THERAPY PHYSICAL THERAPY DISCONTINUANCE OF CARE PLAN OF CARE UPDATE: Assessment: Russ Mclaughlin is discontinued from Physical Therapy services due to goal achievement and maximal benefit.. Patient was seen for 18 visits from Start of Care Date: 03/19/23 to 06/18/2023 and treatment included: Therapeutic exercise, Neuromuscular re-education, Manual therapy, Self-jail management, Gait training, and Patient/Family/Caregiver Education. Goals updated 06/18/2023 Goals for Episode of Care: created on 03/19/23 through 07/09/23 [place] in home exercise program. - Met Perform squats, stair negotiation, and transfers without pain. - MET Increase ROM of RLE to WNL for return to PLOF and improved mechanics with gait - MET Increased strength of RLE to 5/5 for return to work. - MET Normal gait. - MET Reciprocal stair negotiation. - MET Patient Goals: Return to work SUBJECTIVE: Patient Reason for Visit: Worked out in the yard and worked 13 hours yesterday. Patient Goals: Return to work Functional Limitations: running Prior Level of Function: Independent without limitations Intake Information: Prescription present Previous Treatment: Surgery Pain: Pain Pain Location: Knee - Right Post Treatment Pain Post Treatment Pain Location: Knee - Right PROMIS Scales Higher is Better 05/31/2023 04/22/2023 Phys Func - Score 49 (within normal limits) 43 (mild dysfunction) Phys Func - Percentile 46 % 24 % Self-Eff Symptom - Score 54 (Average) - Self-Eff Symptom - Percentile 66 % - T-scores: mean of general population = 50. 5 points is clinically meaningfully difference Percentiles provide an indication of how the patient's score ranks in relation to the general population. Higher percentile rankings indicate better function/quality of life. 50th percentile is the average of the general population and indicates half of respondents had a worse score. OBJECTIVE MEASURES WITH LEVEL OF FUNCTION: LE AROM R LE AROM: WNL L LE AROM: WNL LE Flexibility Flexibility: Quadriceps Flexibility R Quadriceps Flexibility: WNL L Quadriceps Flexibility: WNL LE Strength R LE Strength: Grossly 5/5 L LE Strength: Grossly 5/5 Dynamometer Strength Right Quadriceps Strength (lbs): 90 Gait Gait Observation: Gait WNL Stairs: WNL When jogging pt lands mid-foot/forefoot on the RLE and mid-foot/heel srike LLE TREATMENT: Therapeutic Exercise: 1: All objective measures taken this session 2: Jogging on treadmill 5.1 mph x 3 min (watching form and advising pt on changes to running technique to normalize this) 3: Discussed finalized HEP Skilled Intervention: Patient was educated in proper exercise technique and purpose for exercises. Provided written instruction for home exercise program to facilitate proper performance and compliance. Correct performance of therapeutic exercises was facilitated with verbal and visual cuing. Billing Therapeutic Exercise Treatment Minutes: 30 Total Treatment Time Minutes (timed/untimed): 30 Carmela Winslow PT documented in this encounter [facility] 06-11-2023 Note HNO ID: [id number] Author: Carmela Winslow PT Service: ? Author Type: Physical Therapist Type: Progress Notes Filed: 06/11/2023 2:23 PM Note Text: R Episode Visit Count: 17 Therapist That Will Accept/Oversee The Plan Of Care: Carmela Winslow Start of Care Date: 03/19/23 Onset Date: 02/05/23 Plan of Care Certification Date: 05/28/23 Next Certification Due Date: 07/02/23 Patient Identified by Name and Date of : Yes REHABILITATION AND SPORTS THERAPY PHYSICAL THERAPY TREATMENT NOTE ASSESSMENT: Russ Mclaughlin tolerated the session with fatigue, expected muscle soreness, and no issues. He demonstrated difficulty with R SLS on foam with ball toss into rebounder. The patient will continue to benefit from ongoing skilled physical therapy to progress toward set goals. PLAN FOR NEXT VISIT: Continue with RLE stabilization exercises and strengthening. SUBJECTIVE: Patient Reason for Visit: Pt reports that he is working 12 hour shifts. The knee is doing well with working,but has increased swelling. Pain: Pain Pain Level: 0 Pain Location: Knee - Right Post Treatment Pain Post Treatment Pain Location: Knee - Right Post Treatment Symptoms: Pt stated fatigue at the end of the session. OBJECTIVE MEASURES WITH LEVEL OF FUNCTION: R ankle falling outward with SLS on foam both with static standing and dynamic activity. TREATMENT: Therapeutic Exercise: 1: Glute max stretch 4 x 30 sec 2: TFL stretch standing for RLE 4 x 30 seconds 3: Squats 1x10 4: DL LP 160# 2 x 10, 144# 1x10 5: Squats on BOSU 2x10 6: Hip stability RLE SLS alphabet x1 A-Z ( I could feel the burn ) 7: Side-stepping purple TB with GTB to fatigue x 2 (*additonal GTB vended for home) Skilled Intervention: Patient was educated in proper exercise technique and purpose for exercises. Skilled judgment was provided in selection of appropriate interventions. Correct performance of therapeutic exercises was facilitated with verbal and visual cuing. Neuromuscular Re-Education: 1: Side-stepping over BOSU round 2 x 10 2: R SLS on foam 3x30 seconds with occasional tap on // bars 3: R SLS on foam with ball toss into rebounder 3x10 Skilled Intervention: Skilled judgment used to assess appropriate program for balance and coordination activity. Ensured patient safety with use of gait belt. Billing Therapeutic Exercise Treatment Minutes: 30 Neuromuscular Re-Education Treatment Minutes: 15 Total Treatment Time Minutes (timed/untimed): 45 Ning Browning, SHIPPING AND RECEIVING OPERATOR Carmela Winslow, PT [facility] 06-11-2023 History of Presen t illness Narrative R Episode Visit Count: 17 Therapist That Will Accept/Oversee The Plan Of Care: Carmela Winslow Start of Care Date: 03/19/23 Onset Date: 02/05/23 Plan of Care Certification Date: 05/28/23 Next Certification Due Date: 07/02/23 Patient Identified by Name and Date of : Yes REHABILITATION AND SPORTS THERAPY PHYSICAL THERAPY TREATMENT NOTE ASSESSMENT: Russ Mclaughlin tolerated the session with fatigue, expected muscle soreness, and no issues. He demonstrated difficulty with R SLS on foam with ball toss into rebounder. The patient will continue to benefit from ongoing skilled physical therapy to progress toward set goals. PLAN FOR NEXT VISIT: Continue with RLE stabilization exercises and strengthening. SUBJECTIVE: Patient Reason for Visit: Pt reports that he is working 12 hour shifts. The knee is doing well with working,but has increased swelling. Pain: Pain Pain Level: 0 Pain Location: Knee - Right Post Treatment Pain Post Treatment Pain Location: Knee - Right Post Treatment Symptoms: Pt stated fatigue at the end of the session. OBJECTIVE MEASURES WITH LEVEL OF FUNCTION: R ankle falling outward with SLS on foam both with static standing and dynamic activity. TREATMENT: Therapeutic Exercise: 1: Glute max stretch 4 x 30 sec 2: TFL stretch standing for RLE 4 x 30 seconds 3: Squats 1x10 4: DL LP 160# 2 x 10, 144# 1x10 5: Squats on BOSU 2x10 6: Hip stability RLE SLS alphabet x1 A-Z ( I could feel the burn ) 7: Side-stepping purple TB with GTB to fatigue x 2 (*additonal GTB vended for home) Skilled Intervention: Patient was educated in proper exercise technique and purpose for exercises. Skilled judgment was provided in selection of appropriate interventions. Correct performance of therapeutic exercises was facilitated with verbal and visual cuing. Neuromuscular Re-Education: 1: Side-stepping over BOSU round 2 x 10 2: R SLS on foam 3x30 seconds with occasional tap on // bars 3: R SLS on foam with ball toss into rebounder 3x10 Skilled Intervention: Skilled judgment used to assess appropriate program for balance and coordination activity. Ensured patient safety with use of gait belt. Billing Therapeutic Exercise Treatment Minutes: 30 Neuromuscular Re-Education Treatment Minutes: 15 Total Treatment Time Minutes (timed/untimed): 45 Ning Browning, [email or web address] Winslow PT documented in this encounter [facility] 06-06-2023 Note HNO ID: [id number] Author: Carmela Winslow PT Service: ? Author Type: Physical Therapist Type: Progress Notes Filed: 06/06/2023 5:17 PM Note Text: Episode Visit Count: 16 Therapist That Will Accept/Oversee The Plan Of Care: Carmela Winslow Start of Care Date: 03/19/23 Onset Date: 02/05/23 Plan of Care Certification Date: 05/28/23 Next Certification Due Date: 07/02/23 Patient Identified by Name and Date of : Yes REHABILITATION AND SPORTS THERAPY PHYSICAL THERAPY TREATMENT NOTE ASSESSMENT: Russ Mclaughlin tolerated the session with no issues. He demonstrated good tolerance to newly added therapeutic exercises. The patient will continue to benefit from ongoing skilled physical therapy to progress toward set goals. PLAN FOR NEXT VISIT: Glute max stretching SUBJECTIVE: Patient Reason for Visit: The knee feels tight because he started work again. Pain: 0 OBJECTIVE MEASURES WITH LEVEL OF FUNCTION: R quad tight compared to L done in prone R glute max tight Stretching glute max and TFL results in decreased intensity of snapping along lateral femoral condyle TREATMENT: Therapeutic Exercise: 1: Glute max stretch 4 x 30 sec 2: TFL stretch standing for RLE 4 x 30 seconds 3: Squats x 10 (good form) 4: DL LP 160# 2 x 10 5: Side-stepping purple TB to fatigue x 2 Skilled Intervention: Patient was educated in proper exercise technique and purpose for exercises. Correct performance of therapeutic exercises was facilitated with verbal and visual cuing. Billing Therapeutic Exercise Treatment Minutes: 45 Total Treatment Time Minutes (timed/untimed): 45 Carmela Winslow PT [facility] 06-06-2023 History of Presen t illness Narrative Episode Visit Count: 16 Therapist That Will Accept/Oversee The Plan Of Care: Carmela Winslow Start of Care Date: 03/19/23 Onset Date: 02/05/23 Plan of Care Certification Date: 05/28/23 Next Certification Due Date: 07/02/23 Patient Identified by Name and Date of : Yes REHABILITATION AND SPORTS THERAPY PHYSICAL THERAPY TREATMENT NOTE ASSESSMENT: Jean-Claudehugo Hairston Arnoldo tolerated the session with no issues. He demonstrated good tolerance to newly added therapeutic exercises. The patient will continue to benefit from ongoing skilled physical therapy to progress toward set goals. PLAN FOR NEXT VISIT: Glute max stretching SUBJECTIVE: Patient Reason for Visit: The knee feels tight because he started work again. Pain: 0 OBJECTIVE MEASURES WITH LEVEL OF FUNCTION: R quad tight compared to L done in prone R glute max tight Stretching glute max and TFL results in decreased intensity of snapping along lateral femoral condyle TREATMENT: Therapeutic Exercise: 1: Glute max stretch 4 x 30 sec 2: TFL stretch standing for RLE 4 x 30 seconds 3: Squats x 10 (good form) 4: DL LP 160# 2 x 10 5: Side-stepping purple TB to fatigue x 2 Skilled Intervention: Patient was educated in proper exercise technique and purpose for exercises. Correct performance of therapeutic exercises was facilitated with verbal and visual cuing. Billing Therapeutic Exercise Treatment Minutes: 45 Total Treatment Time Minutes (timed/untimed): 45 Carmela Goldy, PT documented in this encounter [facility] 06-03-2023 Note HNO ID: [id number] Author: Morgan Zazueta MD Service: ? Author Type: Resident Type: Progress Notes Filed: 06/05/2023 10:19 AM Note Text: June 03, 2023 HPI: Russ Mclaughlin is a 37 year old male with the presenting complaint of Established Patient and Post Op of the Right Knee and Established Patient of the Right Shoulder. Russ reports a current pain level of 2 (Knee-Right). The pain is Intermittent . He was last seen in orthopaedic clinic for his knee on 04/15/2023 with Prasanth Patel. Most recent knee imaging was completed on 02/11/2023 (MRI KNEE WO IVCON RIGHT) . Attached is imaging for the order.The last knee-related PT visit was completed on 05/31/2023 (Knee - Right). Russ had knee surgery on 03/08/2023 with Prasanth Patel. He was last seen in orthopaedic clinic for his shoulder on 05/02/2023 with Padmini Varela. Most recent shoulder imaging was completed on 05/30/2023 (MRI SHOULDER WO IVCON RIGHT) . In the past (based on all medication history on file), Russ has tried the following anti-inflammatory medications (not necessarily for this reason for visit): ibuprofen, ketorolac tromethamine, methylprednisolone, triamcinolone acetonide. Last XR Knee - Impression Only XR KNEE GENERAL 4V AP BOTH/PA BOTH/LAT/MERC RIGHT Exam End: 01/17/2023 2:43 PM (Final result) Impression: IMPRESSION: Joint effusion of the right knee. No acute fracture seen. Special Client Bus Driver: [facility] Transcribe Date/Time: Jan 17 2023 2:51P Dictated by : NICOLETTE DYKES MD ... 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 NEW CHONDRAL WEAR IN THE LATERAL COMPARTMENT. SMALL JOINT EFFUSION. ... Last MRI Shoulder - Impression Only MRI SHOULDER WO IVCON RIGHT Exam End: 05/30/2023 2:53 PM (Final result) Impression: IMPRESSION: 1. Paucity of joint fluid limits assessment of the glenoid labrum and glenohumeral articular cartilage. No definite tear or defect. 2. Abnormal rotator cuff with low-grade partial thickness articular sided and interstitial infraspinatus tears and partial-thickness articular sided subscapularis tear. 3. Hill-Sachs lesion 4. Normal biceps tendon.... PT Visits (up to last 5) Some values may be hidden. Unless noted otherwise, only the newest values recorded on each date are displayed. PT Visits 05/10/23 05/14/23 05/17/23 05/28/23 05/31/23 Pain location Knee - Right Knee - Right Knee - Right Knee - Right Knee - Right Pain level 3 3 Not rated 0 Not rated Description Sharp Frequency Intermittent Recent Surgeries this specialty 03/08/2023 (12w, 3d) RECONSTRUCTION KNEE LIGAMENTOUS EXTRA-ARTICULAR; ARTHROSCOPY KNEE W/ MENISCECTOMY LATERAL (Right; Right) Prasanth Patel MD; Pranay Wayne MD - Posted This is a 37-year-old male who returns for 12-week follow-up after right knee MPFLR and lateral meniscectomy. He is doing very well from the standpoint of his right knee. He has developed some snapping in the lateral side of his right knee over the lateral femoral condyle in the region of the IT band. He also presents to discuss the MRI of his right shoulder. His right shoulder symptoms have been stable compared to prior. He denies any numbness or tingling in the right upper extremity. PAIN EVALUATION 06/03/2023 0807 Pain Level: 2 Pain Location: Knee-Right Duration Units: Months Frequency: Intermittent Past Medical History: PAST MEDICAL HISTORY Diagnosis Date Anxiety and depression OLEG (generalized anxiety disorder) Gynecomastia History of chlamydia Marijuana use Morbid obesity (HCC) Primary hypogonadism in male PTSD (post-traumatic stress disorder) Routine or ritual circumcision Family History: FAMILY HISTORY Problem Relation Age of Onset Asthma Mother other (Lopez's palsy) Maternal Grandfather Arthritis Maternal Grandmother Breast Cancer Maternal Grandmother Diabetes Maternal Aunt Heart Maternal Aunt Diabetes Maternal Aunt Diabetes Maternal Uncle other (leukemia) Maternal Uncle other (myasthenia gravis) Maternal Uncle Anesthesia Problems No Family History Social History: Social History Tobacco Use Smoking status: Former Packs/day: 0.20 Years: 1.00 Pack years: 0.20 Types: Cigarettes Quit date: 12/02/2014 Years since quittin.5 Smokeless tobacco: Never Substance Use Topics Alcohol use: Yes Alcohol/week: 7.5 standard drinks Types: 3 Cans of Beer (12oz) per week Comment: 12 drinks per week. Drug use: Yes Frequency: 15.0 times per week Types: Marijuana Comment: medical marijuana Medications: aspirin, enteric coated (ECOTRIN LOW STRENGTH) 81 mg EC tablet Take 1 tablet by mouth twice daily for 14 days. Allergies: ALLERGIES Allergen Reactions Latex Hives A AND D Ointment [Oth* Narcotics [Opioids * Vomiting Percocet [Oxyc (more content not included)... [facility] 06-03-2023 History of Presen t illness Narrative June 03, 2023 HPI: Russ Mclaughlin is a 37 year old male with the presenting complaint of Established Patient and Post Op of the Right Knee and Established Patient of the Right Shoulder. Russ reports a current pain level of 2 (Knee-Right). The pain is Intermittent . He was last seen in orthopaedic clinic for his knee on 04/15/2023 with Prasanth Patel. Most recent knee imaging was completed on 02/11/2023 (MRI KNEE WO IVCON RIGHT) . Attached is imaging for the order.The last knee-related PT visit was completed on 05/31/2023 (Knee - Right). Russ had knee surgery on 03/08/2023 with Prasanth Patel. He was last seen in orthopaedic clinic for his shoulder on 05/02/2023 with Padmini Varela. Most recent shoulder imaging was completed on 05/30/2023 (MRI SHOULDER WO IVCON RIGHT) . In the past (based on all medication history on file), Russ has tried the following anti-inflammatory medications (not necessarily for this reason for visit): ibuprofen, ketorolac tromethamine, methylprednisolone, triamcinolone acetonide. Last XR Knee - Impression Only XR KNEE GENERAL 4V AP BOTH/PA BOTH/LAT/MERC RIGHT Exam End: 01/17/2023 2:43 PM (Final result) Impression: IMPRESSION: Joint effusion of the right knee. No acute fracture seen. Special Client Bus Driver: BERNARDA Transcribe Date/Time: Jan 17 2023 2:51P Dictated by : NICOLETTE DYKES MD ... 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 NEW CHONDRAL WEAR IN THE LATERAL COMPARTMENT. SMALL JOINT EFFUSION. ... Last MRI Shoulder - Impression Only MRI SHOULDER WO IVCON RIGHT Exam End: 05/30/2023 2:53 PM (Final result) Impression: IMPRESSION: 1. Paucity of joint fluid limits assessment of the glenoid labrum and glenohumeral articular cartilage. No definite tear or defect. 2. Abnormal rotator cuff with low-grade partial thickness articular sided and interstitial infraspinatus tears and partial-thickness articular sided subscapularis tear. 3. Hill-Sachs lesion 4. Normal biceps tendon.... PT Visits (up to last 5) Some values may be hidden. Unless noted otherwise, only the newest values recorded on each date are displayed. PT Visits 05/10/23 05/14/23 05/17/23 05/28/23 05/31/23 Pain location Knee - Right Knee - Right Knee - Right Knee - Right Knee - Right Pain level 3 3 Not rated 0 Not rated Description Sharp Frequency Intermittent Recent Surgeries this specialty 03/08/2023 (12w, 3d) RECONSTRUCTION KNEE LIGAMENTOUS EXTRA-ARTICULAR; ARTHROSCOPY KNEE W/ MENISCECTOMY LATERAL (Right; Right) Prasanth Patel MD; Pranay Wayne MD - Posted This is a 37-year-old male who returns for 12-week follow-up after right knee MPFLR and lateral meniscectomy. He is doing very well from the standpoint of his right knee. He has developed some snapping in the lateral side of his right knee over the lateral femoral condyle in the region of the IT band. He also presents to discuss the MRI of his right shoulder. His right shoulder symptoms have been stable compared to prior. He denies any numbness or tingling in the right upper extremity. PAIN EVALUATION 06/03/2023 0807 Pain Level: 2 Pain Location: Knee-Right Duration Units: Months Frequency: Intermittent Past Medical History: PAST MEDICAL HISTORY Diagnosis Date Anxiety and depression OLEG (generalized anxiety disorder) Gynecomastia History of chlamydia Marijuana use Morbid obesity (HCC) Primary hypogonadism in male PTSD (post-traumatic stress disorder) Routine or ritual circumcision Family History: FAMILY HISTORY Problem Relation Age of Onset Asthma Mother other (Lopez's palsy) Maternal Grandfather Arthritis Maternal Grandmother Breast Cancer Maternal Grandmother Diabetes Maternal Aunt Heart Maternal Aunt Diabetes Maternal Aunt Diabetes Maternal Uncle other (leukemia) Maternal Uncle other (myasthenia gravis) Maternal Uncle Anesthesia Problems No Family History Social History: Social History Tobacco Use Smoking status: Former Packs/day: 0.20 Years: 1.00 Pack years: 0.20 Types: Cigarettes Quit date: 12/02/2014 Years since quittin.5 Smokeless tobacco: Never Substance Use Topics Alcohol use: Yes Alcohol/week: 7.5 standard drinks Types: 3 Cans of Beer (12oz) per week Comment: 12 drinks per week. Drug use: Yes Frequency: 15.0 times per week Types: Marijuana Comment: medical marijuana Medications: aspirin, enteric coated (ECOTRIN LOW STRENGTH) 81 mg EC tablet Take 1 tablet by mouth twice daily for 14 days. Allergies: ALLERGIES Allergen Reactions Latex Hives A & D Ointment [Oth* Narcotics [Opioids * Vomiting Percocet [Oxycodone* Intolerance, Other: See Comments Vicodin [Hydrocodon* Intolerance, Vomiting Physical Exam: Right shoulder: Full active and passive range of motion. Full strength. Tender to palpation over the right bicipital groove, otherwise no tenderness palpation about the right shoulder. No appreciable effusion. Negative Jobes and O'Briens tests. Full active and passive range of motion. Right knee: Incision well-healed. No joint effusion. Tender to palpation over the distal IT band. No patellar apprehension, appropriate patellar mobility on lateral stress. Eufemia's with firm endpoint. Negative Papi's test. Imaging: Images were reviewed in the office today. Interpretation of the performed imaging is partial-thickness articular sided tear of the right subscap and infraspinatus, distal clavicle edema and signs of early AC joint arthritis on the clavicle side Assessment/Plan: Mr. Conroy is recovering well postoperatively from his right knee surgery. He is having some IT band snapping over the lateral femoral condyle. He is currently in physical therapy, so we will encourage him to work with them on stretching and exercises to resolve this issue. In terms of his right shoulder, he has small partial-thickness radicular sided tears in the infra and subscap in addition to some signs of early AC joint osteoarthritis. We recommend adding right shoulder exercises to his physical therapy regimen. We will have him follow-up in 2 months for repeat evaluation of his right knee and right shoulder. 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 I personally obtained the newell and critical portions of the history and physical exam. I reviewed the resident's documentation and discussed the patient with the resident physician. I agree with the resident's medical decision-making as documented. I have also personally reviewed the patient's PMHx, PSHx, FHx, SHx, Meds, and Allergies. Dr. Prasanth Patel MD documented in this encounter [facility] 05-31-2023 Note HNO ID: [id number] Author: Carmela Winslow PT Service: ? Author Type: Physical Therapist Type: Progress Notes Filed: 05/31/2023 9:25 AM Note Text: Episode Visit Count: 15 Therapist That Will Accept/Oversee The Plan Of Care: Carmela Winslow Start of Care Date: 03/19/23 Onset Date: 02/05/23 Plan of Care Certification Date: 05/28/23 Next Certification Due Date: 07/02/23 Patient Identified by Name and Date of : Yes REHABILITATION AND SPORTS THERAPY PHYSICAL THERAPY TREATMENT NOTE ASSESSMENT: Russ Mclaughlin tolerated the session with expected muscle soreness and no issues. He demonstrated good tolerance to all therapeutic exercises. The patient will continue to benefit from ongoing skilled physical therapy to progress toward set goals. PLAN FOR NEXT VISIT: Leg press, HS curl, balance training RLE SUBJECTIVE: Patient Reason for Visit: Doing alright. Having swelling in the ankle though. Wondering about sleeping without the brace. Was not outside a lot yesterday. Pain: Pain Pain Level: (Not rated) Pain Location: Knee - Right OBJECTIVE MEASURES WITH LEVEL OF FUNCTION: RLE SL balance poor compared to LLE TREATMENT: Therapeutic Exercise: 1: Walking treadmill 3.5 mph x 5 min (HEP discussed and subjective taken. Working on walking at a fast pace) 2: DL LP 136# 2 x 12 3: SL LP 88# 2 x 12 reps 4: Seated HS curl machine 90# 3 x 12 reps 5: BLE heel raises on step x 3 sets Skilled Intervention: Patient was educated in proper exercise technique and purpose for exercises. Correct performance of therapeutic exercises was facilitated with verbal and visual cuing. Neuromuscular Re-Education: 1: Side-stepping over BOSU round 2 x 5 2: SL stance 4 x 30 seconds 3: Lateral taps on tilt board x 20 4: F/B taps on tilt board x 20 5: Balance on tilt board F/B and Laterally x 60 sec each Skilled Intervention: Skilled judgment used to assess appropriate program for balance and coordination activity. Billing Therapeutic Exercise Treatment Minutes: 20 Neuromuscular Re-Education Treatment Minutes: 20 Total Treatment Time Minutes (timed/untimed): 40 Carmela Winslow PT [facility] 05-31-2023 History of Presen t illness Narrative Episode Visit Count: 15 Therapist That Will Accept/Oversee The Plan Of Care: Carmela Winslow Start of Care Date: 03/19/23 Onset Date: 02/05/23 Plan of Care Certification Date: 05/28/23 Next Certification Due Date: 07/02/23 Patient Identified by Name and Date of : Yes REHABILITATION AND SPORTS THERAPY PHYSICAL THERAPY TREATMENT NOTE ASSESSMENT: Russ Mclaughlin tolerated the session with expected muscle soreness and no issues. He demonstrated good tolerance to all therapeutic exercises. The patient will continue to benefit from ongoing skilled physical therapy to progress toward set goals. PLAN FOR NEXT VISIT: Leg press, HS curl, balance training RLE SUBJECTIVE: Patient Reason for Visit: Doing alright. Having swelling in the ankle though. Wondering about sleeping without the brace. Was not outside a lot yesterday. Pain: Pain Pain Level: (Not rated) Pain Location: Knee - Right OBJECTIVE MEASURES WITH LEVEL OF FUNCTION: RLE SL balance poor compared to LLE TREATMENT: Therapeutic Exercise: 1: Walking treadmill 3.5 mph x 5 min (HEP discussed and subjective taken. Working on walking at a fast pace) 2: DL LP 136# 2 x 12 3: SL LP 88# 2 x 12 reps 4: Seated HS curl machine 90# 3 x 12 reps 5: BLE heel raises on step x 3 sets Skilled Intervention: Patient was educated in proper exercise technique and purpose for exercises. Correct performance of therapeutic exercises was facilitated with verbal and visual cuing. Neuromuscular Re-Education: 1: Side-stepping over BOSU round 2 x 5 2: SL stance 4 x 30 seconds 3: Lateral taps on tilt board x 20 4: F/B taps on tilt board x 20 5: Balance on tilt board F/B and Laterally x 60 sec each Skilled Intervention: Skilled judgment used to assess appropriate program for balance and coordination activity. Billing Therapeutic Exercise Treatment Minutes: 20 Neuromuscular Re-Education Treatment Minutes: 20 Total Treatment Time Minutes (timed/untimed): 40 Carmela Winslow PT documented in this encounter [facility] 05-30-2023 Note HNO ID: [id number] Author: RT Crissy(R) Service: Radiology Author Type: Technologist Type: Progress Notes Filed: 05/30/2023 3:52 PM Note Text: Radiology Service Progress Note PATIENT NAME: Russ Mclaughlin DATE OF SERVICE: May 30, 2023 TIME: 3:51 PM PATIENT IDENTITY VERIFICATION COMPLETED USING TWO (2) IDENTIFIERS: Name and Date of confirmed by patient verbally. FALL SCREENING: Has the patient had 2 falls in the last year or 1 fall with injury or currently using an Ambulatory Assistive Device (Walker, Cane, Wheelchair, Crutches, etc.)? No PATIENT GENDER DATA: Male PATIENT RELEVANT IMPLANT DATA REVIEWED: Yes RADIOLOGY DEPARTMENT: MR; Exam(s) Completed: Upper MSK: Shoulder, right PERIPHERAL IV DATA: Not applicable SIGNED BY: RT Crissy(R)MR May 30, 2023 3:51 PM [facility] 05-28-2023 Note HNO ID: [id number] Author: Carmela Winslow PT Service: ? Author Type: Physical Therapist Type: Progress Notes Filed: 05/28/2023 10:14 AM Note Text: Episode Visit Count: 14 Therapist That Will Accept/Oversee The Plan Of Care: Carmela Winslow Start of Care Date: 03/19/23 Onset Date: 02/05/23 Plan of Care Certification Date: 05/28/23 Next Certification Due Date: 07/02/23 Patient Identified by Name and Date of : Yes REHABILITATION AND SPORTS THERAPY PHYSICAL THERAPY PROGRESS REPORT PLAN OF CARE UPDATE: Assessment: Russ Mclaughlin demonstrates improvements in knee strength and ROM and gait quality. He has progressed toward goals. Patient continues to present with impairments in independence in exercise, overall function, and strength that interfere with stair negotiation, physical activities, recreational activities, driving, working . Current prognosis is Good due to: current objective clinical presentation, good overall health status . He will benefit from continued skilled therapy services to meet the updated goals for this plan of care as noted below. Goals updated 05/28/2023 Goals for Episode of Care: created on 03/19/23 through 07/09/23 [place] in home exercise program. - Met Perform squats, stair negotiation, and transfers without pain. - MET Increase ROM of RLE to WNL for return to PLOF and improved mechanics with gait - MET Increased strength of RLE to 5/5 for return to work. Normal gait. - Progressing, will continue Reciprocal stair negotiation. - MET Patient Goals: Return to work Patient Goals: Return to work Planned Interventions, Frequency, and Duration: 1x/week, 4 weeks Total Number of Visits Planned: 4 Patient to be seen for Therapeutic exercise (15575), Neuromuscular re-education ([id number]), Manual therapy ([id number]), Self-jail management ([id number]), Gait Training ([id number]), Patient/Family/Caregiver Education PLAN FOR NEXT VISIT: Leg press double/single leg, stepping exercises, Hs strengthening. Resisted side-stepping SUBJECTIVE: Patient Reason for Visit: Some sharp pain anterior knee only with sliding the knee brace up. Patient Goals: Return to work Functional Limitations: stair negotiation, physical activities, recreational activities, driving, working Prior Level of Function: Independent without limitations Intake Information: Prescription present Previous Treatment: Surgery Pain: Pain Pain Level: 0 Pain Location: Knee - Right PROMIS Scales Higher is Better 04/22/2023 Phys Func - Score 43 (mild dysfunction) Phys Func - Percentile 24 % T-scores: mean of general population = 50. 5 points is clinically meaningfully difference Percentiles provide an indication of how the patient's score ranks in relation to the general population. Higher percentile rankings indicate better function/quality of life. 50th percentile is the average of the general population and indicates half of respondents had a worse score. OBJECTIVE MEASURES WITH LEVEL OF FUNCTION: LE AROM R Knee Flexion: 136 Degrees LE Strength L Hip Flexion (L2): 5/5 L Hip ABduction: 4+/5 L Knee Flexion: 5/5 L Ankle Dorsiflexion (L4): 5/5 Lower Extremity Dynamometer Testing : Yes Dynamometer Strength Right Quadriceps Strength (lbs): 73.6 Left Quadriceps Strength (lbs): 86.5 Gait Gait Distance (feet): 40 Gait Observation: Gait WNL Stairs: WNL TREATMENT: Therapeutic Exercise: 1: All objective measures taken 2: DL LP 112# x 10 reps 3: DL LP 134# 2 x 10 reps 4: Hip 4 way BTB [address] 5: Seated HS curl machine 90# 3 x 10 reps Skilled Intervention: Patient was educated in proper exercise technique and purpose for exercises. Skilled judgment was provided in selection of appropriate interventions. Provided written instruction for home exercise program to facilitate proper performance and compliance. Correct performance of therapeutic exercises was facilitated with verbal and visual cuing. Billing Therapeutic Exercise Treatment Minutes: 42 Total Treatment Time Minutes (timed/untimed): 42 Carmela Winslow PT [facility] 05-28-2023 History of Presen t illness Narrative Episode Visit Count: 14 Therapist That Will Accept/Oversee The Plan Of Care: Carmela Winslow Start of Care Date: 03/19/23 Onset Date: 02/05/23 Plan of Care Certification Date: 05/28/23 Next Certification Due Date: 07/02/23 Patient Identified by Name and Date of : Yes REHABILITATION AND SPORTS THERAPY PHYSICAL THERAPY PROGRESS REPORT PLAN OF CARE UPDATE: Assessment: Russ Mclaughlin demonstrates improvements in knee strength and ROM and gait quality. He has progressed toward goals. Patient continues to present with impairments in independence in exercise, overall function, and strength that interfere with stair negotiation, physical activities, recreational activities, driving, working . Current prognosis is Good due to: current objective clinical presentation, good overall health status . He will benefit from continued skilled therapy services to meet the updated goals for this plan of care as noted below. Goals updated 05/28/2023 Goals for Episode of Care: created on 03/19/23 through 07/09/23 [place] in home exercise program. - Met Perform squats, stair negotiation, and transfers without pain. - MET Increase ROM of RLE to WNL for return to PLOF and improved mechanics with gait - MET Increased strength of RLE to 5/5 for return to work. Normal gait. - Progressing, will continue Reciprocal stair negotiation. - MET Patient Goals: Return to work Patient Goals: Return to work Planned Interventions, Frequency, and Duration: 1x/week, 4 weeks Total Number of Visits Planned: 4 Patient to be seen for Therapeutic exercise ([id number]), Neuromuscular re-education (69267), Manual therapy (66042), Self-jail management (77110), Gait Training (87992), Patient/Family/Caregiver Education PLAN FOR NEXT VISIT: Leg press double/single leg, stepping exercises, Hs strengthening. Resisted side-stepping SUBJECTIVE: Patient Reason for Visit: Some sharp pain anterior knee only with sliding the knee brace up. Patient Goals: Return to work Functional Limitations: stair negotiation, physical activities, recreational activities, driving, working Prior Level of Function: Independent without limitations Intake Information: Prescription present Previous Treatment: Surgery Pain: Pain Pain Level: 0 Pain Location: Knee - Right PROMIS Scales Higher is Better 04/22/2023 Phys Func - Score 43 (mild dysfunction) Phys Func - Percentile 24 % T-scores: mean of general population = 50. 5 points is clinically meaningfully difference Percentiles provide an indication of how the patient's score ranks in relation to the general population. Higher percentile rankings indicate better function/quality of life. 50th percentile is the average of the general population and indicates half of respondents had a worse score. OBJECTIVE MEASURES WITH LEVEL OF FUNCTION: LE AROM R Knee Flexion: 136 Degrees LE Strength L Hip Flexion (L2): 5/5 L Hip ABduction: 4+/5 L Knee Flexion: 5/5 L Ankle Dorsiflexion (L4): 5/5 Lower Extremity Dynamometer Testing : Yes Dynamometer Strength Right Quadriceps Strength (lbs): 73.6 Left Quadriceps Strength (lbs): 86.5 Gait Gait Distance (feet): 40 Gait Observation: Gait WNL Stairs: WNL TREATMENT: Therapeutic Exercise: 1: All objective measures taken 2: DL LP 112# x 10 reps 3: DL LP 134# 2 x 10 reps 4: Hip 4 way BTB [address] 5: Seated HS curl machine 90# 3 x 10 reps Skilled Intervention: Patient was educated in proper exercise technique and purpose for exercises. Skilled judgment was provided in selection of appropriate interventions. Provided written instruction for home exercise program to facilitate proper performance and compliance. Correct performance of therapeutic exercises was facilitated with verbal and visual cuing. Billing Therapeutic Exercise Treatment Minutes: 42 Total Treatment Time Minutes (timed/untimed): 42 Carmela Winslow PT documented in this encounter [facility] 05-17-2023 Note HNO ID: [id number] Author: Carmela Winslow PT Service: ? Author Type: Physical Therapist Type: Progress Notes Filed: 05/17/2023 12:46 PM Note Text: Episode Visit Count: 13 Therapist That Will Accept/Oversee The Plan Of Care: Carmela Winslow Start of Care Date: 03/19/23 Onset Date: 02/05/23 Plan of Care Certification Date: 04/18/23 Next Certification Due Date: 05/23/23 Patient Identified by Name and Date of : Yes REHABILITATION AND SPORTS THERAPY PHYSICAL THERAPY TREATMENT NOTE ASSESSMENT: Russ Mclaughiln tolerated the session with no issues. He demonstrated no pain with any therapeutic exercise. The patient will continue to benefit from ongoing skilled physical therapy to progress toward set goals. PLAN FOR NEXT VISIT: POC update SUBJECTIVE: Patient Reason for Visit: Still feels the popping in the lateral knee but this is not painful. Patient Goals: Return to work Functional Limitations: walking, rising from a chair, standing, stair negotiation, physical activities, recreational activities, driving, working Prior Level of Function: Independent without limitations Intake Information: Prescription present Previous Treatment: Surgery Pain: Pain Pain Level: (Not rated) Pain Location: Knee - Right OBJECTIVE MEASURES WITH LEVEL OF FUNCTION: TREATMENT: Therapeutic Exercise: 1: Stationary bike, x4min at 5.0 resistance (HEP discussed and resistance increased to work on strength) 2: DL LP 112# 3 x 10 reps 3: Prone quad stretch 4 x 30 sec 4: 8 F step-up x 10 5: 10 F step-up x 10 6: 10 Step overs x 10 Skilled Intervention: Patient was educated in proper exercise technique and purpose for exercises. Neuromuscular Re-Education: 1: SL stance ball toss x 15 2: NBOS on pad with ball toss x 15 3: Tandem on pad ball toss x 15 (x2 rounds) Skilled Intervention: Skilled judgment used to assess appropriate program for balance and coordination activity. Ensured patient safety with use of SBA Billing Therapeutic Exercise Treatment Minutes: 28 Neuromuscular Re-Education Treatment Minutes: 13 Total Treatment Time Minutes (timed/untimed): 41 Carmela Winslow, PT [facility] 05-17-2023 History of Presen t illness Narrative Episode Visit Count: 13 Therapist That Will Accept/Oversee The Plan Of Care: Carmela Winslow Start of Care Date: 03/19/23 Onset Date: 02/05/23 Plan of Care Certification Date: 04/18/23 Next Certification Due Date: 05/23/23 Patient Identified by Name and Date of : Yes REHABILITATION AND SPORTS THERAPY PHYSICAL THERAPY TREATMENT NOTE ASSESSMENT: Russ Mclaughlin tolerated the session with no issues. He demonstrated no pain with any therapeutic exercise. The patient will continue to benefit from ongoing skilled physical therapy to progress toward set goals. PLAN FOR NEXT VISIT: POC update SUBJECTIVE: Patient Reason for Visit: Still feels the popping in the lateral knee but this is not painful. Patient Goals: Return to work Functional Limitations: walking, rising from a chair, standing, stair negotiation, physical activities, recreational activities, driving, working Prior Level of Function: Independent without limitations Intake Information: Prescription present Previous Treatment: Surgery Pain: Pain Pain Level: (Not rated) Pain Location: Knee - Right OBJECTIVE MEASURES WITH LEVEL OF FUNCTION: TREATMENT: Therapeutic Exercise: 1: Stationary bike, x4min at 5.0 resistance (HEP discussed and resistance increased to work on strength) 2: DL LP 112# 3 x 10 reps 3: Prone quad stretch 4 x 30 sec 4: 8 F step-up x 10 5: 10 F step-up x 10 6: 10 Step overs x 10 Skilled Intervention: Patient was educated in proper exercise technique and purpose for exercises. Neuromuscular Re-Education: 1: SL stance ball toss x 15 2: NBOS on pad with ball toss x 15 3: Tandem on pad ball toss x 15 (x2 rounds) Skilled Intervention: Skilled judgment used to assess appropriate program for balance and coordination activity. Ensured patient safety with use of SBA Billing Therapeutic Exercise Treatment Minutes: 28 Neuromuscular Re-Education Treatment Minutes: 13 Total Treatment Time Minutes (timed/untimed): 41 Carmela Winslow PT documented in this encounter [facility] 05-14-2023 Note HNO ID: [id number] Author: Carmela Winslow PT Service: ? Author Type: Physical Therapist Type: Progress Notes Filed: 05/14/2023 3:43 PM Note Text: Episode Visit Count: 12 Therapist That Will Accept/Oversee The Plan Of Care: Carmela Winslow Start of Care Date: 03/19/23 Onset Date: 02/05/23 Plan of Care Certification Date: 04/18/23 Next Certification Due Date: 05/23/23 Patient Identified by Name and Date of : Yes REHABILITATION AND SPORTS THERAPY PHYSICAL THERAPY TREATMENT NOTE ASSESSMENT: Russ Mclaughlin tolerated the session with no issues. He demonstrated improvements in knee flexion ROM. The patient will continue to benefit from ongoing skilled physical therapy to progress toward set goals. PLAN FOR NEXT VISIT: POC update SUBJECTIVE: Patient Reason for Visit: Pt states the knee was really swollen yesterday. Did do a lot of band exercises yesterday. Used ice and it is better today. Traveling and will not be back to PT until 05/28. Pain: Pain Pain Level: 3 Pain Location: Knee - Right OBJECTIVE MEASURES WITH LEVEL OF FUNCTION: LE AROM R Knee Flexion: 135 Degrees Slight bump under incision that is firm with some mild swelling around it. TREATMENT: Therapeutic Exercise: 1: Stationary bike, x4min (Subjective taken) 2: DL LP 88# 2 x 15 reps 4: 4-way hip, L3 TB, 1x15 each 5: forward step ups, 6 , 1x10 each 6: lateral step ups, 6 , 1x10 each 7: eccentric step downs, 4 , 2x10 each 8: Squats 2 x 10 reps 9: Knee flexion on stairs x 5 Skilled Intervention: Patient was educated in proper exercise technique and purpose for exercises. Correct performance of therapeutic exercises was facilitated with verbal cuing. Billing Therapeutic Exercise Treatment Minutes: 40 Total Treatment Time Minutes (timed/untimed): 40 Carmela Winslow PT [facility] 05-10-2023 Note HNO ID: [id number] Author: Marco Sheikh, PT Service: ? Author Type: Physical Therapist Type: Progress Notes Filed: 05/10/2023 9:09 AM Note Text: Episode Visit Count: 11 Therapist That Will Accept/Oversee The Plan Of Care: Carmela Winslow Start of Care Date: 03/19/23 Onset Date: 02/05/23 Plan of Care Certification Date: 04/18/23 Next Certification Due Date: 05/23/23 Patient Identified by Name and Date of : Yes REHABILITATION AND SPORTS THERAPY PHYSICAL THERAPY TREATMENT NOTE ASSESSMENT: Russ Mclaughlin tolerated the session with decreased symptoms. He demonstrated slight fatigue in R quad with eccentric step downs, otherwise improved endurance with exercises. The patient will continue to benefit from ongoing skilled physical therapy to progress toward set goals. PLAN FOR NEXT VISIT: assess response to eccentric step downs and progress as tolerated SUBJECTIVE: Patient Reason for Visit: Pt reports some shapr pain around incision, no redness, swelling, warmth, or oozing. Pt reports he is able to walk fine, pain does not affect ADLs. Pain: Pain Pain Level: 3 Pain Location: Knee - Right Description: Sharp Frequency: Intermittent Post Treatment Pain Post Treatment Pain Level: Better OBJECTIVE MEASURES WITH LEVEL OF FUNCTION: Min TTP to lateral incision on R knee. No warmth, swelling, redness, or oozing noted. TREATMENT: Therapeutic Exercise: 1: Stationary bike, x4min (subjective taken) 2: B leg press, 88#, 2x15 3: seated B HS curl, 50#, 2x15 4: 4-way hip, L3 TB, 1x15 each 5: forward step ups, 6 , 1x10 each 6: lateral step ups, 6 , 1x10 each 7: eccentric step downs, 4 , 2x10 each 8: B heel raises, 2x15 Skilled Intervention: Patient was educated in proper exercise technique and purpose for exercises. Skilled judgment was provided in selection of appropriate interventions. Billing Therapeutic Exercise Treatment Minutes: 31 Total Treatment Time Minutes (timed/untimed): 31 Patient arrived late to appointment. Marco Sheikh, PT [facility] 05-10-2023 History of Presen t illness Narrative Episode Visit Count: 11 Therapist That Will Accept/Oversee The Plan Of Care: Carmela Winslow Start of Care Date: 03/19/23 Onset Date: 02/05/23 Plan of Care Certification Date: 04/18/23 Next Certification Due Date: 05/23/23 Patient Identified by Name and Date of : Yes REHABILITATION AND SPORTS THERAPY PHYSICAL THERAPY TREATMENT NOTE ASSESSMENT: Russ Mclaughlin tolerated the session with decreased symptoms. He demonstrated slight fatigue in R quad with eccentric step downs, otherwise improved endurance with exercises. The patient will continue to benefit from ongoing skilled physical therapy to progress toward set goals. PLAN FOR NEXT VISIT: assess response to eccentric step downs and progress as tolerated SUBJECTIVE: Patient Reason for Visit: Pt reports some shapr pain around incision, no redness, swelling, warmth, or oozing. Pt reports he is able to walk fine, pain does not affect ADLs. Pain: Pain Pain Level: 3 Pain Location: Knee - Right Description: Sharp Frequency: Intermittent Post Treatment Pain Post Treatment Pain Level: Better OBJECTIVE MEASURES WITH LEVEL OF FUNCTION: Min TTP to lateral incision on R knee. No warmth, swelling, redness, or oozing noted. TREATMENT: Therapeutic Exercise: 1: Stationary bike, x4min (subjective taken) 2: B leg press, 88#, 2x15 3: seated B HS curl, 50#, 2x15 4: 4-way hip, L3 TB, 1x15 each 5: forward step ups, 6 , 1x10 each 6: lateral step ups, 6 , 1x10 each 7: eccentric step downs, 4 , 2x10 each 8: B heel raises, 2x15 Skilled Intervention: Patient was educated in proper exercise technique and purpose for exercises. Skilled judgment was provided in selection of appropriate interventions. Billing Therapeutic Exercise Treatment Minutes: 31 Total Treatment Time Minutes (timed/untimed): 31 Patient arrived late to appointment. Marco Sheikh PT documented in this encounter [facility] 05-07-2023 Note HNO ID: [id number] Author: Marco Sheikh PT Service: ? Author Type: Physical Therapist Type: Progress Notes Filed: 05/07/2023 2:57 PM Note Text: Episode Visit Count: 10 Therapist That Will Accept/Oversee The Plan Of Care: Carmela Winslow Start of Care Date: 03/19/23 Onset Date: 02/05/23 Plan of Care Certification Date: 04/18/23 Next Certification Due Date: 05/23/23 Patient Identified by Name and Date of : Yes REHABILITATION AND SPORTS THERAPY PHYSICAL THERAPY TREATMENT NOTE ASSESSMENT: Russ Mclaughlin tolerated the session with no issues. He demonstrated increased mm fatigue with mini squats, otherwise good endurance with exercises. The patient will continue to benefit from ongoing skilled physical therapy to progress toward set goals. PLAN FOR NEXT VISIT: attempt eccentric step downs on 4 step SUBJECTIVE: Patient Reason for Visit: Pt reports some irritation around lateral aspect of R knee. Pt reports noticing some swelling in knee over the weekend, plans on reaching out to surgeon about this. Pt reports icing helps with swelling. Pain: Pain Pain Level: 2 Pain Location: Knee - Right Description: Aching Frequency: Intermittent Post Treatment Pain Post Treatment Pain Level: No Change OBJECTIVE MEASURES WITH LEVEL OF FUNCTION: Knee Observations Knee Brace: Functional knee brace TREATMENT: Therapeutic Exercise: 1: Stationary bike, x5min (subjective taken) 2: B leg press, 88#, 2x10 3: seated B HS curl, 50#, 2x15 4: 4-way hip, L3 TB, 1x10 each 5: forward step ups, 6 , 2x10 each 6: lateral step ups, 6 , 2x10 each 7: mini-squats, 2x10 8: B heel raises, 2x15 9: standing calf stretch, [id number] each 10: standing HS stretch, [id number] each Skilled Intervention: Patient was educated in proper exercise technique and purpose for exercises. Skilled judgment was provided in selection of appropriate interventions. Billing Therapeutic Exercise Treatment Minutes: 40 Total Treatment Time Minutes (timed/untimed): 40 Marco Sheikh, PT [facility] 05-07-2023 History of Presen t illness Narrative Episode Visit Count: 10 Therapist That Will Accept/Oversee The Plan Of Care: Carmela Winslow Start of Care Date: 03/19/23 Onset Date: 02/05/23 Plan of Care Certification Date: 04/18/23 Next Certification Due Date: 05/23/23 Patient Identified by Name and Date of : Yes REHABILITATION AND SPORTS THERAPY PHYSICAL THERAPY TREATMENT NOTE ASSESSMENT: Russ Mclaughlin tolerated the session with no issues. He demonstrated increased mm fatigue with mini squats, otherwise good endurance with exercises. The patient will continue to benefit from ongoing skilled physical therapy to progress toward set goals. PLAN FOR NEXT VISIT: attempt eccentric step downs on 4 step SUBJECTIVE: Patient Reason for Visit: Pt reports some irritation around lateral aspect of R knee. Pt reports noticing some swelling in knee over the weekend, plans on reaching out to surgeon about this. Pt reports icing helps with swelling. Pain: Pain Pain Level: 2 Pain Location: Knee - Right Description: Aching Frequency: Intermittent Post Treatment Pain Post Treatment Pain Level: No Change OBJECTIVE MEASURES WITH LEVEL OF FUNCTION: Knee Observations Knee Brace: Functional knee brace TREATMENT: Therapeutic Exercise: 1: Stationary bike, x5min (subjective taken) 2: B leg press, 88#, 2x10 3: seated B HS curl, 50#, 2x15 4: 4-way hip, L3 TB, 1x10 each 5: forward step ups, 6 , 2x10 each 6: lateral step ups, 6 , 2x10 each 7: mini-squats, 2x10 8: B heel raises, 2x15 9: standing calf stretch, [id number] each 10: standing HS stretch, [id number] each Skilled Intervention: Patient was educated in proper exercise technique and purpose for exercises. Skilled judgment was provided in selection of appropriate interventions. Billing Therapeutic Exercise Treatment Minutes: 40 Total Treatment Time Minutes (timed/untimed): 40 Marco Sheikh PT documented in this encounter [facility] 05-03-2023 Note HNO ID: [id number] Author: Marco Sheikh PT Service: ? Author Type: Physical Therapist Type: Progress Notes Filed: 05/03/2023 9:10 AM Note Text: Episode Visit Count: 9 Therapist That Will Accept/Oversee The Plan Of Care: Carmela Winslow Start of Care Date: 03/19/23 Onset Date: 02/05/23 Plan of Care Certification Date: 04/18/23 Next Certification Due Date: 05/23/23 Patient Identified by Name and Date of : Yes REHABILITATION AND SPORTS THERAPY PHYSICAL THERAPY TREATMENT NOTE ASSESSMENT: Russ Mclaughlin tolerated the session with decreased symptoms. He demonstrated good endurance with exercises, tolerated step ups well with good quad control. The patient will continue to benefit from ongoing skilled physical therapy to progress toward set goals. PLAN FOR NEXT VISIT: attempt 4-way hip strengthening with TB SUBJECTIVE: Patient Reason for Visit: Pt reports feeling a little sore after last session but no pain. Pt reports good compliance with HEP, feels ready to progress strengthening exercises. Pain: Pain Pain Level: 2 Pain Location: Knee - Right Description: Sore Frequency: Intermittent Post Treatment Pain Post Treatment Pain Level: 1 OBJECTIVE MEASURES WITH LEVEL OF FUNCTION: Min verbal cues for upright posture during standing exercises. TREATMENT: Therapeutic Exercise: 1: Stationary bike, x5min (for knee ROM) 2: B leg press, 64#, 2x15 3: seated B HS curl, 40#, 2x15 4: forward step ups, 6 , 2x10 each 5: lateral step ups, 6 , 2x10 each 6: standing hip abduction, 2x15 each 7: standing hip extension, 2x10 each 8: sit to stand, 3x5 Skilled Intervention: Patient was educated in proper exercise technique and purpose for exercises. Skilled judgment was provided in selection of appropriate interventions. Billing Therapeutic Exercise Treatment Minutes: 39 Total Treatment Time Minutes (timed/untimed): 39 Marco Sheikh, PT [facility] 05-03-2023 History of Presen t illness Narrative Episode Visit Count: 9 Therapist That Will Accept/Oversee The Plan Of Care: Carmela Winslow Start of Care Date: 03/19/23 Onset Date: 02/05/23 Plan of Care Certification Date: 04/18/23 Next Certification Due Date: 05/23/23 Patient Identified by Name and Date of : Yes REHABILITATION AND SPORTS THERAPY PHYSICAL THERAPY TREATMENT NOTE ASSESSMENT: Russ Mclaughlin tolerated the session with decreased symptoms. He demonstrated good endurance with exercises, tolerated step ups well with good quad control. The patient will continue to benefit from ongoing skilled physical therapy to progress toward set goals. PLAN FOR NEXT VISIT: attempt 4-way hip strengthening with TB SUBJECTIVE: Patient Reason for Visit: Pt reports feeling a little sore after last session but no pain. Pt reports good compliance with HEP, feels ready to progress strengthening exercises. Pain: Pain Pain Level: 2 Pain Location: Knee - Right Description: Sore Frequency: Intermittent Post Treatment Pain Post Treatment Pain Level: 1 OBJECTIVE MEASURES WITH LEVEL OF FUNCTION: Min verbal cues for upright posture during standing exercises. TREATMENT: Therapeutic Exercise: 1: Stationary bike, x5min (for knee ROM) 2: B leg press, 64#, 2x15 3: seated B HS curl, 40#, 2x15 4: forward step ups, 6 , 2x10 each 5: lateral step ups, 6 , 2x10 each 6: standing hip abduction, 2x15 each 7: standing hip extension, 2x10 each 8: sit to stand, 3x5 Skilled Intervention: Patient was educated in proper exercise technique and purpose for exercises. Skilled judgment was provided in selection of appropriate interventions. Billing Therapeutic Exercise Treatment Minutes: 39 Total Treatment Time Minutes (timed/untimed): 39 Marco Sheikh PT documented in this encounter [facility] 05-02-2023 Note HNO ID: [id number] Author: Padmini Varela PA-C Service: ? Author Type: Physician [employer] Machine Operator Type: Progress Notes Filed: 05/02/2023 9:22 AM Note Text: Denial overturned with [employer] this morning following peer to peer discussion. Right Shoulder MRI non-contrast authorized. Auth: [id number] Valid through 07/01/23 I spent a total of 30 minutes on the date of the service which included completing clinical documentation, obtaining and/or reviewing separately obtained history, communicating with other HCPs (not separately reported), communicating results to the patient/family/caregiver, and care coordination (not separately reported). Padmini Varela PA-C [facility] 05-02-2023 History of Presen t illness Narrative Denial overturned with [employer] this morning following peer to peer discussion. Right Shoulder MRI non-contrast authorized. Auth: [id number] Valid through 07/01/23 I spent a total of 30 minutes on the date of the service which included completing clinical documentation, obtaining and/or reviewing separately obtained history, communicating with other HCPs (not separately reported), communicating results to the patient/family/caregiver, and care coordination (not separately reported). Padmini Varela PA-C documented in this encounter [facility] 05-01-2023 Miscellaneous Notes Patient's MRI has been cancelled due to the insurance denial. Also if patient has a labral tear the MRI will not show this. The patient will need to have a shoulder arthrogram completed. This is not something that can be completed here at [place]. Thank you, Nellie Turpin documented in this encounter [facility] 04-30-2023 Note HNO ID: [id number] Author: Marco Sheikh PT Service: ? Author Type: Physical Therapist Type: Progress Notes Filed: 04/30/2023 3:42 PM Note Text: Episode Visit Count: 8 Therapist That Will Accept/Oversee The Plan Of Care: Carmela Winslow Start of Care Date: 03/19/23 Onset Date: 02/05/23 Plan of Care Certification Date: 04/18/23 Next Certification Due Date: 05/23/23 Patient Identified by Name and Date of : Yes REHABILITATION AND SPORTS THERAPY PHYSICAL THERAPY TREATMENT NOTE ASSESSMENT: Russ Mclaughlin tolerated the session with decreased symptoms. He demonstrated improvements in AROM R knee flexion. The patient will continue to benefit from ongoing skilled physical therapy to progress toward set goals. PLAN FOR NEXT VISIT: progress strengthening exercises as tolerated, attempt step-ups SUBJECTIVE: Patient Reason for Visit: Pt reports feeling sore today after running a tiller yesterday. Pt reports good compliance with HEP. Pain: Pain Pain Level: 2 Pain Location: Knee - Right Description: Sore Frequency: Intermittent Post Treatment Pain Post Treatment Pain Level: 1 OBJECTIVE MEASURES WITH LEVEL OF FUNCTION: Knee Observations Knee Brace: Functional knee brace LE AROM R Knee Flexion: 132 Degrees TREATMENT: Therapeutic Exercise: 1: supine 90/90 R knee flexion/extension with towel behind knee, 2x10 2: mini-squats, 2x10 3: B leg press, 64#, 2x10 4: seated B HS curl, 40#, 2x10 5: standing HS curl, no weight, 2x10 each 6: standing hip abduction, 2x10 each 7: Knee flexion on stairs 2x5 reps holding 10 sec each 8: sit to stand, 3x5 Skilled Intervention: Patient was educated in proper exercise technique and purpose for exercises. Skilled judgment was provided in selection of appropriate interventions. Billing Therapeutic Exercise Treatment Minutes: 38 Total Treatment Time Minutes (timed/untimed): 38 Marco Sheikh PT [facility] 04-22-2023 Note HNO ID: [id number] Author: Carmela Winslow PT Service: ? Author Type: Physical Therapist Type: Progress Notes Filed: 04/22/2023 6:27 PM Note Text: Episode Visit Count: 7 Therapist That Will Accept/Oversee The Plan Of Care: Carmela Winslow Start of Care Date: 03/19/23 Onset Date: 02/05/23 Plan of Care Certification Date: 04/18/23 Next Certification Due Date: 05/23/23 Patient Identified by Name and Date of : Yes REHABILITATION AND SPORTS THERAPY PHYSICAL THERAPY TREATMENT NOTE ASSESSMENT: Russ Mclaughlin tolerated the session with no issues. He demonstrated quick quad fatigue with wall slides. The patient will continue to benefit from ongoing skilled physical therapy to progress toward set goals. PLAN FOR NEXT VISIT: Progress ROM as tolerated. Can trial double leg press but light weights. Squats. HS curl machine. The R quad fatigues quickly so try squats first so pt feels secure on his feet. SUBJECTIVE: Patient Reason for Visit: Doing well. No pain. The quad can get tired. Wants to walk around the neighborhood. Pain: Pain Pain Level: 0 Pain Location: Knee - Right OBJECTIVE MEASURES WITH LEVEL OF FUNCTION: LE AROM R Knee Flexion: 116 Degrees TREATMENT: Therapeutic Exercise: 1: Stationary bike x 5 min (able to achieve full revolution during today's session) 2: Wall slides 2 x 6 reps (very challenging and not given for home just yet) 3: B heel raises 2 x 12 reps 4: Mini squats 2 x 8 reps 5: Knee flexion on stairs x 10 reps holding 10 sec each Skilled Intervention: Patient was educated in proper exercise technique and purpose for exercises. Provided written instruction for home exercise program to facilitate proper performance and compliance. Correct performance of therapeutic exercises was facilitated with verbal and visual cuing. Billing Therapeutic Exercise Treatment Minutes: 40 Total Treatment Time Minutes (timed/untimed): 40 Carmela Winslow PT [facility] 04-18-2023 Note HNO ID: [id number] Author: Carmela Winslow PT Service: ? Author Type: Physical Therapist Type: Progress Notes Filed: 04/18/2023 6:40 PM Note Text: Episode Visit Count: 6 Therapist That Will Accept/Oversee The Plan Of Care: Carmela Winslow Start of Care Date: 03/19/23 Onset Date: 02/05/23 Plan of Care Certification Date: 04/18/23 Next Certification Due Date: 05/23/23 Patient Identified by Name and Date of : Yes REHABILITATION AND SPORTS THERAPY PHYSICAL THERAPY PROGRESS REPORT PLAN OF CARE UPDATE: Assessment: Russ Mclaughlin demonstrates difficulty with walking, lifting, recreational activities, kneeling, and running and improvements in ROM, strength, gait quality, and level of independence with HEP. He has progressed toward goals. Patient continues to present with impairments in ADL's, independence in exercise, overall function, range of motion, and strength that interfere with . Current prognosis is Good due to: current objective clinical presentation, good overall health status . He will benefit from continued skilled therapy services to meet the updated goals for this plan of care as noted below. Goals updated 04/18/2023 Goals for Episode of Care: created on 03/19/23 through 07/09/23 [place] in home exercise program. - Met Perform squats, stair negotiation, and transfers without pain. - Progressing, will continue Increase ROM of RLE to WNL for return to PLOF and improved mechanics with gait - Progressing, will continue Increased strength of RLE to 5/5 for return to work. Normal gait. - Progressing, will continue Reciprocal stair negotiation. - Not assessed yet Patient Goals: Return to work Planned Interventions, Frequency, and Duration: 2x/week, 4 weeks Total Number of Visits Planned: 8 Patient to be seen for Therapeutic exercise (83969), Neuromuscular re-education (93550), Manual therapy (83592), Self-jail management (97102), Gait Training ([id number]), Patient/Family/Caregiver Education PLAN FOR NEXT VISIT: Trial walking without crutch. Progress into next phase of strengthening. SUBJECTIVE: Patient Reason for Visit: Pt feels that he is 70-80% improved overall so far. Doing well with the exercises. Not much pain. Pain: Pain Pain Level: 0 Pain Location: Knee - Right PROMIS Scales T-scores: mean of general population = 50. 5 points is clinically meaningfully difference Percentiles provide an indication of how the patient's score ranks in relation to the general population. Higher percentile rankings indicate better function/quality of life. 50th percentile is the average of the general population and indicates half of respondents had a worse score. OBJECTIVE MEASURES WITH LEVEL OF FUNCTION: LE AROM R Knee Extension: 0 Degrees R Knee Flexion: 104 Degrees (strap assist) LE Strength R LE Strength: Able to perform SLR in supine without quad lag L LE Strength: Grossly 5/5 R Hip Flexion (L2): 4+/5 R Hip ABduction: 4/5 R Knee Extension (L3): 3-/5 (Missing 5 degrees of extension) R Knee Flexion: 4+/5 R Ankle Dorsiflexion (L4): 5/5 Gait Gait: Modified Independent Gait Distance (feet): 40 Gait Device: Crutches Gait Deviations: Right Lower Extremity Gait Deviations Right Lower Extremity: (WB full but using crutches for added support for a few more days per physician orders) TREATMENT: Therapeutic Exercise: 1: All objective measures taken this session 2: SLR 2 x 10 3: SAQ 2 x 5 on bolster 4: Hip abd 3 x 15 reps 5: HS stretch on stairs 3 x 30 sec 6: B Heel raise 2 x 10 7: Supine heel slides x 10 strap assist Skilled Intervention: Patient was educated in proper exercise technique and purpose for exercises. Correct performance of therapeutic exercises was facilitated with verbal and visual cuing. Billing Therapeutic Exercise Treatment Minutes: 40 Total Treatment Time Minutes (timed/untimed): 40 Carmela Winslow PT [facility] 04-15-2023 Note HNO ID: [id number] Author: Carmela Winslow PT Service: ? Author Type: Physical Therapist Type: Progress Notes Filed: 04/15/2023 3:26 PM Note Text: Episode Visit Count: 5 Therapist That Will Accept/Oversee The Plan Of Care: Carmela Winslow Start of Care Date: 03/19/23 Plan of Care Certification Date: 03/19/23 Next Certification Due Date: 04/23/23 Patient Identified by Name and Date of : Yes REHABILITATION AND SPORTS THERAPY PHYSICAL THERAPY TREATMENT NOTE ASSESSMENT: Russ Mclaughlin tolerated the session with no issues. He demonstrated improvements in knee ROM. The patient will continue to benefit from ongoing skilled physical therapy for reassessment by supervising therapist. PLAN FOR NEXT VISIT: POC update SUBJECTIVE: Patient Reason for Visit: Crutches with 100% WB. Progress ROM as tolerated. Not much pain. Pain with lifts though. Pain: Pain Pain Location: Knee - Right OBJECTIVE MEASURES WITH LEVEL OF FUNCTION: LE AROM R Knee Extension: 0 Degrees R Knee Flexion: 98 Degrees (102 with strap assist) TREATMENT: Therapeutic Exercise: 1: Prone quad stretch 2 x 30 seconds 2: TKE GTB 3 x 12 reps 3: Knee flexion stretch on step 4: BLE heel raise against wall 3 x 15 reps 5: Prone knee curl 4# 3 x 10 6: Supine SLR with strap assist x 10 reps 7: Supine heel slides x 10 strap assist Skilled Intervention: Patient was educated in proper exercise technique and purpose for exercises. Correct performance of therapeutic exercises was facilitated with verbal cuing. Billing Therapeutic Exercise Treatment Minutes: 39 Total Treatment Time Minutes (timed/untimed): 39 Carmela Winslow PT [facility] 04-15-2023 Note HNO ID: [id number] Author: Padmini Varela PA-C Service: ? 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 He reports an acute, sharp painful pop at that time. Pain is began to interfere with ability to remain active, as well as participate in activities of daily living particularly overhead activities. He has pain with resistance of his right upper extremity with his elbow in a flexed position anteriorly, and superiorly along the right shoulder. Admits intermittent night pain. He has attempted rest, activity modifications, ice, [id number] anti-inflammatories and Tylenol for this pain. Denies numbness or tingling distally. Otherwise well. Diagnosis: S/p orthopedic surgery, follow-up exam Chronic right shoulder pain (primary encounter diagnosis) Assessment/Plan: At this time given concern for biceps labral tear versus SLAP tear would like to order MRI. MRI is being ordered for preoperative planning to include possible debridement of labrum, biceps tenodesis subpectoral pending confirmation on MRI. Continue avoidance of overhead lifting, pushing or pulling until cleared. Otherwise follow-up in office or virtually with Dr. Patel once MRI is obtained. [id number]-ges-[id number] anti-inflammatories, Tylenol, and ice 20 minutes on and off as needed. PAIN EVALUATION 04/15/2023 1225 Pain Level: 0 Pain Location: Knee-Right Duration Units: Weeks Frequency: Intermittent Past Medical History: PAST MEDICAL HISTORY Diagnosis Date Anxiety and depression OLEG (generalized anxiety disorder) Gynecomastia History of chlamydia Marijuana use Morbid obesity (HCC) Primary hypogonadism in male PTSD (post-traumatic stress disorder) Routine or ritual circumcision Family History: FAMILY HISTORY Problem Relation Age of Onset Asthma Mother other (Lopez's palsy) Maternal Grandfather Arthritis Maternal Grandmother Breast Cancer Maternal Grandmother Diabetes Maternal Aunt Heart Maternal Aunt Diabetes Maternal Aunt Diabetes Maternal Uncle other (leukemia) Maternal Uncle other (myasthenia gravis) Maternal Uncle Anesthesia Problems No Family History Social History: Social History Tobacco Use Smoking status: Former Packs/day: 0.20 Years: 1.00 Pack years: 0.20 Types: Cigarettes Quit date: 12/02/2014 Years since quittin.3 Smokeless tobacco: Never Substance Use Topics Alcohol use: Yes Alcohol/week: 7.5 standard drinks Types: 3 Cans of Beer (12oz) per week Comment: 12 drinks per week. Drug use: Yes Frequency: 15.0 times per week Types: Marijuana Comment: medical marijuana Medications: aspirin, enteric coated (ECOTRIN LOW STRENGTH) 81 mg EC tablet Take 1 tablet by mouth twice daily for 14 days. Allergies: ALLERGIES Allergen Reactions Latex Hives A AND D Ointment [Oth* Narcotics [Opioids * Vomiting Percocet [Oxycodone* Intolerance, Other: See Comments Vicodin [Hydrocodon* Intolerance, Vomiting Physical Exam: Right Shoulder Focused Musculoskeletal/Neurologic exam: Inspection-Postural abnormality:No.; Deformity:No.; Atrophy:No.; Scapular dyskinesia:No. Palpation-Tenderness:Yes: anterior superior GHJL ; Swelling:No. Sensation- Normal to light touch (C5, C6, C7, C8) Cervical Spine:Appropriate range of motion. ROM: Right: 160 with pain anterior and superiorly/ER:50 with mild anterior pain/IR:T10 Left: 180/ER:60/IR:T10 Rotator Cuff Strength: 5/5. Pain with rotator cuff testing? No. Special Tests (as indicated): Neer/Espino:Negative Speed's Test/Biceps:mild discomforts Yergeson's Test:Negative Belly Press: Negative Lift Off: Negative Mills's Test:positive Cross Body Adduction:Negative Contra-lateral shoulder wnl. Review of Systems: Constitutional: Any recent fevers? No Cardiovascular: Any chest pain? No Respiratory: Any shortness or breath? No Gastrointestinal: Any abdominal discomfort? No Integumentary: Any recent skin changes or rashes? No Neurologic: Any numbness or tingling? See Above Endocrine: Any diagnosis of diabetes? No Hematologic: Any recent bleeding episodes? No I spent a total of 30 minutes on the date of the service which included preparing to see the patient, [id number]-[id number] patient care, completing clinical documentation, obtaining and/or reviewing separately obtained history, performing a medically appropriate examination, counseling and educating the patient/family/caregiver, ordering medications, tests, or procedures, independently interpreting results (not separately reported), communicating results to the patient/family/caregiver and care coordination (not separately reported). Padmini Varela PA-C Date: April 15, 2023 Time: 12:54 PM [facility] 04-15-2023 History of Presen t illness Narrative Episode Visit Count: 5 Therapist That Will Accept/Oversee The Plan Of Care: Carmela Winslow Start of Care Date: 03/19/23 Plan of Care Certification Date: 03/19/23 Next Certification Due Date: 04/23/23 Patient Identified by Name and Date of : Yes REHABILITATION AND SPORTS THERAPY PHYSICAL THERAPY TREATMENT NOTE ASSESSMENT: Russ Mclaughlin tolerated the session with no issues. He demonstrated improvements in knee ROM. The patient will continue to benefit from ongoing skilled physical therapy for reassessment by supervising therapist. PLAN FOR NEXT VISIT: POC update SUBJECTIVE: Patient Reason for Visit: Crutches with 100% WB. Progress ROM as tolerated. Not much pain. Pain with lifts though. Pain: Pain Pain Location: Knee - Right OBJECTIVE MEASURES WITH LEVEL OF FUNCTION: LE AROM R Knee Extension: 0 Degrees R Knee Flexion: 98 Degrees (102 with strap assist) TREATMENT: Therapeutic Exercise: 1: Prone quad stretch 2 x 30 seconds 2: TKE GTB 3 x 12 reps 3: Knee flexion stretch on step 4: BLE heel raise against wall 3 x 15 reps 5: Prone knee curl 4# 3 x 10 6: Supine SLR with strap assist x 10 reps 7: Supine heel slides x 10 strap assist Skilled Intervention: Patient was educated in proper exercise technique and purpose for exercises. Correct performance of therapeutic exercises was facilitated with verbal cuing. Billing Therapeutic Exercise Treatment Minutes: 39 Total Treatment Time Minutes (timed/untimed): 39 Carmela Winslow PT documented in this encounter [facility] 04-08-2023 Note HNO ID: [id number] Author: Cramela Winslow PT Service: ? Author Type: Physical Therapist Type: Progress Notes Filed: 04/08/2023 3:24 PM Note Text: Episode Visit Count: 4 Therapist That Will Accept/Oversee The Plan Of Care: Carmela Winslow Start of Care Date: 03/19/23 Plan of Care Certification Date: 03/19/23 Next Certification Due Date: 04/23/23 Patient Identified by Name and Date of : Yes REHABILITATION AND SPORTS THERAPY PHYSICAL THERAPY TREATMENT NOTE ASSESSMENT: Jean-Claudehugo Hairston Arnoldo tolerated the session with expected muscle soreness. He demonstrated good form with all therapeutic exercises. The patient will continue to benefit from ongoing skilled physical therapy to progress toward set goals. PLAN FOR NEXT VISIT: Progress ther-ex per protocol. SUBJECTIVE: Patient Reason for Visit: The quad contraction is getting better. Excited to go to 25% WB for 2 days. Pain: Pain Pain Location: Knee - Right OBJECTIVE MEASURES WITH LEVEL OF FUNCTION: LE AROM R Knee Extension: 0 Degrees R Knee Flexion: 86 Degrees TTP Patellar tendon TREATMENT: Therapeutic Exercise: 1: Quad set x 10 2: Quad set into SLR with strap assist 3 x 6 reps 3: Heel slides strap assist 3 x 10 reps 4: Long-sitting HS stretch 3 x 30 sec 5: Sidelying hip abd x 10 reps Skilled Intervention: Patient was educated in proper exercise technique and purpose for exercises. Correct performance of therapeutic exercises was facilitated with verbal and visual cuing. Gait Trainin: Discussed new WB restricvtions based on protocol at 25% weight bearing for 2 days then 50% WB 2 days ect. pre-gait/gait training to prevent falls and insure safety. Reviewed and educated patient on additions/changes for home program Billing Therapeutic Exercise Treatment Minutes: 25 Gait Training Treatment Minutes: 4 Total Treatment Time Minutes (timed/untimed): 29 Pt arrived 10 min late to this appointment Carmela Winslow PT [facility] 04-08-2023 History of Presen t illness Narrative Episode Visit Count: 4 Therapist That Will Accept/Oversee The Plan Of Care: Carmela Winslow Start of Care Date: 03/19/23 Plan of Care Certification Date: 03/19/23 Next Certification Due Date: 04/23/23 Patient Identified by Name and Date of : Yes REHABILITATION AND SPORTS THERAPY PHYSICAL THERAPY TREATMENT NOTE ASSESSMENT: Russ Mclaughlin tolerated the session with expected muscle soreness. He demonstrated good form with all therapeutic exercises. The patient will continue to benefit from ongoing skilled physical therapy to progress toward set goals. PLAN FOR NEXT VISIT: Progress ther-ex per protocol. SUBJECTIVE: Patient Reason for Visit: The quad contraction is getting better. Excited to go to 25% WB for 2 days. Pain: Pain Pain Location: Knee - Right OBJECTIVE MEASURES WITH LEVEL OF FUNCTION: LE AROM R Knee Extension: 0 Degrees R Knee Flexion: 86 Degrees TTP Patellar tendon TREATMENT: Therapeutic Exercise: 1: Quad set x 10 2: Quad set into SLR with strap assist 3 x 6 reps 3: Heel slides strap assist 3 x 10 reps 4: Long-sitting HS stretch 3 x 30 sec 5: Sidelying hip abd x 10 reps Skilled Intervention: Patient was educated in proper exercise technique and purpose for exercises. Correct performance of therapeutic exercises was facilitated with verbal and visual cuing. Gait Trainin: Discussed new WB restricvtions based on protocol at 25% weight bearing for 2 days then 50% WB 2 days ect. pre-gait/gait training to prevent falls and insure safety. Reviewed and educated patient on additions/changes for home program Billing Therapeutic Exercise Treatment Minutes: 25 Gait Training Treatment Minutes: 4 Total Treatment Time Minutes (timed/untimed): 29 Pt arrived 10 min late to this appointment Carmela Winslow PT documented in this encounter [facility] 04-02-2023 Note HNO ID: [id number] Author: Carmela Winslow PT Service: ? Author Type: Physical Therapist Type: Progress Notes Filed: 04/02/2023 3:38 PM Note Text: Episode Visit Count: 3 Therapist That Will Accept/Oversee The Plan Of Care: Carmela Winslow Start of Care Date: 03/19/23 Plan of Care Certification Date: 03/19/23 Next Certification Due Date: 04/23/23 Patient Identified by Name and Date of : Yes REHABILITATION AND SPORTS THERAPY PHYSICAL THERAPY TREATMENT NOTE ASSESSMENT: Russ Mclaughlin tolerated the session with no issues. He demonstrated improvements in quality of quad contraction. The patient will continue to benefit from ongoing skilled physical therapy to progress toward set goals. PLAN FOR NEXT VISIT: Continue with protocol SUBJECTIVE: Patient Reason for Visit: Doing well. The exercises are going fine. No complaints. Pain: Pain Pain Level: (Not rated) Pain Location: Knee - Right OBJECTIVE MEASURES WITH LEVEL OF FUNCTION: TREATMENT: Therapeutic Exercise: 1: Quad set 10 sec on and 10 sec off x 10 min (With attended E-stim 2 pads through one channel) 2: Long-sitting Heel slides with strap x 10 3: Sidelying 2 x 10 reps 4: Long-sitting HS stretch x 30 seconds 5: Calf stretch 2 x 30 seconds Skilled Intervention: Patient was educated in proper exercise technique and purpose for exercises. Correct performance of therapeutic exercises was facilitated with verbal and visual cuing. Billing Therapeutic Exercise Treatment Minutes: 35 Total Treatment Time Minutes (timed/untimed): 35 Carmela Winslow, PT [facility] 04-02-2023 History of Presen t illness Narrative Episode Visit Count: 3 Therapist That Will Accept/Oversee The Plan Of Care: Carmela Winslow Start of Care Date: 03/19/23 Plan of Care Certification Date: 03/19/23 Next Certification Due Date: 04/23/23 Patient Identified by Name and Date of : Yes REHABILITATION AND SPORTS THERAPY PHYSICAL THERAPY TREATMENT NOTE ASSESSMENT: Russ Mclaughlin tolerated the session with no issues. He demonstrated improvements in quality of quad contraction. The patient will continue to benefit from ongoing skilled physical therapy to progress toward set goals. PLAN FOR NEXT VISIT: Continue with protocol SUBJECTIVE: Patient Reason for Visit: Doing well. The exercises are going fine. No complaints. Pain: Pain Pain Level: (Not rated) Pain Location: Knee - Right OBJECTIVE MEASURES WITH LEVEL OF FUNCTION: TREATMENT: Therapeutic Exercise: 1: Quad set 10 sec on and 10 sec off x 10 min (With attended E-stim 2 pads through one channel) 2: Long-sitting Heel slides with strap x 10 3: Sidelying 2 x 10 reps 4: Long-sitting HS stretch x 30 seconds 5: Calf stretch 2 x 30 seconds Skilled Intervention: Patient was educated in proper exercise technique and purpose for exercises. Correct performance of therapeutic exercises was facilitated with verbal and visual cuing. Billing Therapeutic Exercise Treatment Minutes: 35 Total Treatment Time Minutes (timed/untimed): 35 Carmela Winslow PT documented in this encounter [facility] 03-29-2023 Note HNO ID: [id number] Author: Carmela Winslow PT Service: ? Author Type: Physical Therapist Type: Progress Notes Filed: 03/29/2023 3:45 PM Note Text: Episode Visit Count: 2 Therapist That Will Accept/Oversee The Plan Of Care: Carmela Winslow Start of Care Date: 03/19/23 Plan of Care Certification Date: 03/19/23 Next Certification Due Date: 04/23/23 Patient Identified by Name and Date of : Yes REHABILITATION AND SPORTS THERAPY PHYSICAL THERAPY TREATMENT NOTE ASSESSMENT: Russ Mclaughlin tolerated the session with no issues. He demonstrated improvements in Knee extension ROM. The patient will continue to benefit from ongoing skilled physical therapy to progress toward set goals. PLAN FOR NEXT VISIT: Continue with e-stim as needed. Hip abd iso using belt. SUBJECTIVE: Patient Reason for Visit: Doing well. The incision is seeping a little and wondering if this is ok. Pain: Pain Pain Level: (Not rated) Pain Location: Knee - Right OBJECTIVE MEASURES WITH LEVEL OF FUNCTION: LE AROM R Knee Extension: 0 Degrees R Knee Flexion: 70 Degrees Incision is not excessively warm. No fatigue. No color change around incision. TREATMENT: Therapeutic Exercise: 1: Quad set 10 sec on and 10 sec off x 10 min (With attended E-stim 2 pads through one channel) 2: Long-sitting Heel slides with strap x 10 3: Supine hip abd iso into belt x 10 reps holding 3-5 sec 4: Long-sitting HS stretch x 30 seconds Skilled Intervention: Patient was educated in proper exercise technique and purpose for exercises. Correct performance of therapeutic exercises was facilitated with verbal and visual cuing. Manual Therapy: 1: Knee ext with overpressure x 10 with 5 sec holds Skilled Intervention: Manual skills to improve joint mobility, ROM, and decrease pain. Utilized anatomy knowledge of the therapist, and assessment of patient's response to intervention. Billing Therapeutic Exercise Treatment Minutes: 38 Manual TherapyTreatment Minutes: 5 Total Treatment Time Minutes (timed/untimed): 43 Carmela Winslow PT [facility] 03-29-2023 History of Presen t illness Narrative Episode Visit Count: 2 Therapist That Will Accept/Oversee The Plan Of Care: Carmela Winslow Start of Care Date: 03/19/23 Plan of Care Certification Date: 03/19/23 Next Certification Due Date: 04/23/23 Patient Identified by Name and Date of : Yes REHABILITATION AND SPORTS THERAPY PHYSICAL THERAPY TREATMENT NOTE ASSESSMENT: Russ Mclaughlin tolerated the session with no issues. He demonstrated improvements in Knee extension ROM. The patient will continue to benefit from ongoing skilled physical therapy to progress toward set goals. PLAN FOR NEXT VISIT: Continue with e-stim as needed. Hip abd iso using belt. SUBJECTIVE: Patient Reason for Visit: Doing well. The incision is seeping a little and wondering if this is ok. Pain: Pain Pain Level: (Not rated) Pain Location: Knee - Right OBJECTIVE MEASURES WITH LEVEL OF FUNCTION: LE AROM R Knee Extension: 0 Degrees R Knee Flexion: 70 Degrees Incision is not excessively warm. No fatigue. No color change around incision. TREATMENT: Therapeutic Exercise: 1: Quad set 10 sec on and 10 sec off x 10 min (With attended E-stim 2 pads through one channel) 2: Long-sitting Heel slides with strap x 10 3: Supine hip abd iso into belt x 10 reps holding 3-5 sec 4: Long-sitting HS stretch x 30 seconds Skilled Intervention: Patient was educated in proper exercise technique and purpose for exercises. Correct performance of therapeutic exercises was facilitated with verbal and visual cuing. Manual Therapy: 1: Knee ext with overpressure x 10 with 5 sec holds Skilled Intervention: Manual skills to improve joint mobility, ROM, and decrease pain. Utilized anatomy knowledge of the therapist, and assessment of patient's response to intervention. Billing Therapeutic Exercise Treatment Minutes: 38 Manual TherapyTreatment Minutes: 5 Total Treatment Time Minutes (timed/untimed): 43 Carmela Winslow PT documented in this encounter [facility] 03-19-2023 Note HNO ID: [id number] Author: Carmela Winslow PT Service: ? Author Type: Physical Therapist Type: Progress Notes Filed: 03/19/2023 11:34 AM Note Text: Episode Visit Count: 1 Therapist That Will Accept/Oversee The Plan Of Care: Carmela Winslow Start of Care Date: 03/19/23 Plan of Care Certification Date: 03/19/23 Next Certification Due Date: 04/23/23 Patient Identified by Name and Date of : Yes REHABILITATION AND SPORTS THERAPY PHYSICAL THERAPY EVALUATION PLAN OF CARE: Assessment: Russ Mclaughlin presents with diagnosis of R MPFL reconstruction that interferes with walking, rising from a chair, standing, stair negotiation, physical activities, recreational activities, driving, working . He presents with impairments in ADL's, gait, independence in exercise, range of motion, and strength. Patient did not complete the PROMIS? (Patient Reported Outcome Measures Information System). Prognosis for therapy is Good due to: current objective clinical presentation, good overall health status . He will benefit from skilled therapy services to meet the goals established for this plan of care as noted below. Goals for Episode of Care: created on 03/19/23 through 07/09/23 [place] in home exercise program. Perform squats, stair negotiation, and transfers without pain. Increase ROM of RLE to WNL for return to PLOF and improved mechanics with gait Increased strength of RLE to 5/5 for return to work. Normal gait. Reciprocal stair negotiation. Patient Goals: Return to work Planned Interventions, Frequency, and Duration: Current Frequency: (1x/week for 2 weeks then 2x/week for 2 weeks) Duration: 4 weeks Total Number of Visits Planned: 6 Planned Treatment Interventions: Therapeutic exercise (60848), Neuromuscular re-education (06851), Manual therapy (17354), Self-jail management (60228), Gait Training (04382), Patient/Family/Caregiver Education PLAN FOR NEXT VISIT: HS stretching, hip abd strengthening, and assess quality of quadriceps contraction. Patient demonstrates good understanding of plan of care and treatment. The above goals and plan of care were discussed and agreed upon by patient/family. SUBJECTIVE: Russ Mclaughlin is a 37 year old male seen today for MPFL reconstruction of the 7th. Only has to contend with 1 step. Using crutches and is adhering to NWB status. Did not do exercises up to this point but very recently has been trying to squeeze his quad. Patient Goals: Return to work Functional Limitations: walking, rising from a chair, standing, stair negotiation, physical activities, recreational activities, driving, working Prior Level of Function: Independent without limitations Intake Information: Prescription present Previous Treatment: Surgery Pain: Pain Pain Level: 3 Pain Location: Knee - Right Description: Sore Post Treatment Pain Post Treatment Pain Location: Knee - Right PROMIS Scales T-scores: mean of general population = 50. 5 points is clinically meaningfully difference Percentiles provide an indication of how the patient's score ranks in relation to the general population. Higher percentile rankings indicate better function/quality of life. 50th percentile is the average of the general population and indicates half of respondents had a worse score. OBJECTIVE MEASURES WITH LEVEL OF FUNCTION: Posture / Alignment Posture: Fair Knee Observations R Knee Presents with: Swelling, Incision R Swelling: Moderate R Incision: WNL LE AROM R LE AROM: WNL (Unless otherwise noted) L LE AROM: WNL R Knee Extension: 11 Degrees R Knee Flexion: 62 Degrees Lumbar Spine Evaluated?: No LE PROM R Knee Extension: 11 Degrees R Knee Flexion: 62 Degrees LE Strength R LE Strength: Deferred testing due to post-op status L LE Strength: Grossly 5/5 Gait Gait: Modified Independent Gait Distance (feet): 40 Gait Device: Crutches Gait Deviations: Right Lower Extremity Gait Deviations Right Lower Extremity: Weight bearing decreased Education: Education Learning Preferences: Demonstration, Explanation, Performance, Printed Materials Barriers: None Learning/educational needs: Home exercise program, Plan of Care, Safety, Gait Training Education Provided: Yes, see treatment interventions for education provided Education Provided To: Patient Education Mode/Type: Demonstration, Explanation/Discussion, Literature/Printed Materials, Performance Response to Education/Teach Back: States/Identifies, Return Demonstration TREATMENT: PT Treatment Interventions: Therapeutic Exercise Evaluation Therapeutic Exercise: 1: Discussed therapy goals, exam findings, purpose of HEP and handout provided. Handles of the crutches adjusted to proper height. 2: Heel slides strap assist (brace on) x 10 reps 3: Quad set pushing into extension (brace on) x 10 reps holding 5 sec each 4: Ankles pumps x 10 5: Ankle circles x (more content not included)... [facility] 03-18-2023 Note HNO ID: [id number] Author: Padmini Varela PA-C Service: ? Author Type: Physician Carbon Coating Machine Operator Type: Progress Notes Filed: 03/18/2023 1:21 PM Note Text: Russ Mclaughlin is a 37 year old male who presents to the office today ~2 weeks s/p right knee arthroscopy, and MPFL reconstruction. Pain currently 3/10, and patient denies taking anything regularly for pain. Pain is well controlled and no longer takes narcotics. Recommended Motrin or tylenol PRN for pain. Continues to do HEP at home. Physical Therapy has been scheduled to start tomorrow. Patient admits WB status as NWB Denies fevers chills rashes or lesions at this time. Denies calf pain or tenderness. Denies acute falls or traumas. Denies numbness or tingling distally of the operative LE. Otherwise doing well. Musculoskeletal Exam: Patient is alert comfortable, cooperative, no acute distress, oriented x 3. Sitting comfortably. On exam today the right knee dressings have been removed. Incisions are clean, dry, closed and no clinical signs of infection. No drainage, surrounding erythema, or rashes. There is mild ecchymosis surrounding incisions. Steri strips remain in place. Monocryl tails clipped at the skin as needed. New steris applied and covered with a 6 ANAHI. Mild post operative effusion. Calf is soft, non-tender. Ankle without edema. Grossly NVI in L4, L5, and S1. Patient ambulates out of office well with crutches or other assistive device Extensor mechanisms are weak but intact. The patient can perform a weak straight leg raise. ROM Flexion: 70 degrees Extension: near full extension Distal Motor and sensory and all intact. All elements of the patient's history gathered for this current visit have been reviewed. Impression: Doing well ~2 weeks post op: right knee arthroscopy, and MPFL reconstruction. Plan: TROM brace set at 0-70 degrees Continue with Hep and continue to work with ROM and quad strengthening at the direction of physical therapy. HEP reviewed with patient and all questions answered. Tylenol and Motrin as needed for pain with plenty of food and water. Continue to Ice and elevate pre and post therapy. As needed otherwise. Operative report and post operative expectations have been reviewed. Follow up in [address] Patel. Patient will contact the office at [phone] if any problems arise. Padmini Varela PA-C [facility] 03-18-2023 History of Presen t illness Narrative Russ Mclaughlin is a 37 year old male who presents to the office today ~2 weeks s/p right knee arthroscopy, and MPFL reconstruction. Pain currently 3/10, and patient denies taking anything regularly for pain. Pain is well controlled and no longer takes narcotics. Recommended Motrin or tylenol PRN for pain. Continues to do HEP at home. Physical Therapy has been scheduled to start tomorrow. Patient admits WB status as NWB Denies fevers chills rashes or lesions at this time. Denies calf pain or tenderness. Denies acute falls or traumas. Denies numbness or tingling distally of the operative LE. Otherwise doing well. Musculoskeletal Exam: Patient is alert comfortable, cooperative, no acute distress, oriented x 3. Sitting comfortably. On exam today the right knee dressings have been removed. Incisions are clean, dry, closed and no clinical signs of infection. No drainage, surrounding erythema, or rashes. There is mild ecchymosis surrounding incisions. Steri strips remain in place. Monocryl tails clipped at the skin as needed. New steris applied and covered with a 6 ANAHI. Mild post operative effusion. Calf is soft, non-tender. Ankle without edema. Grossly NVI in L4, L5, and S1. Patient ambulates out of office well with crutches or other assistive device Extensor mechanisms are weak but intact. The patient can perform a weak straight leg raise. ROM Flexion: 70 degrees Extension: near full extension Distal Motor and sensory and all intact. All elements of the patient's history gathered for this current visit have been reviewed. Impression: Doing well ~2 weeks post op: right knee arthroscopy, and MPFL reconstruction. Plan: TROM brace set at 0-70 degrees Continue with Hep and continue to work with ROM and quad strengthening at the direction of physical therapy. HEP reviewed with patient and all questions answered. Tylenol and Motrin as needed for pain with plenty of food and water. Continue to Ice and elevate pre and post therapy. As needed otherwise. Operative report and post operative expectations have been reviewed. Follow up in [address] Patel. Patient will contact the office at [phone] if any problems arise. Padmini Varela PA-C documented in this encounter [facility] 03-08-2023 Note HNO ID: [id number] Author: DIDI Driscoll Service: ? Author Type: Enterprise Mobility Architect Type: Anesthesia Procedure Notes Filed: 03/08/2023 11:14 AM Note Text: ANESTHESIOLOGY PROCEDURE NOTE Airway General Information Procedure Start Time/Medication Administration: 03/08/2023 10:57 AM Patient location during procedure: OR Patient identity confirmed: arm band and patient Staffing Anesthesiologist: Peter Gilliland MD CAA: DIDI Driscoll Performed by: EMIL Indications and Patient Condition Indications for airway management: anesthesia Preoxygenated: yes Method: asleep Final Airway Details Final airway type: supraglottic airway Number of attempts at approach: 1 Final Supraglottic Airway: IGEL Size 5 Seal Adequate: yes Airway not difficult SIGNATURE: DIDI Driscoll PATIENT NAME: Russ Mclaughlin DATE: March 08, 2023 TIME: 11:14 AM CSN: [id number] [facility] 03-08-2023 Note HNO ID: [id number] Author: Peter Gilliland MD Service: Anesthesiology Author Type: Anesthesiologist Type: Anesthesia Procedure Notes Filed: 03/08/2023 10:42 AM Note Text: ANESTHESIOLOGY PROCEDURE NOTE Peripheral Nerve Block General Information Procedure Start Time/Medication Administration: 03/08/2023 10:14 AM Procedure End time: 03/08/2023 11:17 AM Patient location during procedure: pre-op Timeout Performed Pre-procedure: timeout performed Consent Obtained: Yes (via Surgical Consent) Patient identity confirmed: patient sedated or unresponsive Reason for block: post-op pain management/at surgeon's request Staffing Anesthesiologist: Peter Gilliland MD Performed by: anesthesiologist Preparation Sterility Preparation: hand hygiene performed prior to procedure, surgical cap used, mask used, sterile drape used during line insertion, skin prep agent completely dried prior to procedure Site Prep: Chloraprep Pre-Procedure Neuro Exam Location: RLE Sensory: intact Motor: intact Procedure Details Patient Position: supine Monitoring: Pulse OX, EKG and NIBP Block Type Lower Extremity: femoral Laterality: right Injection Technique: single-shot Ultrasound Guided: Yes Image in Chart: yes Local Infiltration: Yes Needle Needle Type: echogenic (Pajunk) Needle Gauge: 21 G Needle Length: 100 mm Assessment Injection assessment: negative aspiration, no paresthesia on injection, incremental injection and local visualized surrounding nerve on ultrasound Post-Procedure Neuro Exam Expected Regional Anesthesia: Yes Medications Administered ropivacaine (PF) 2 mg/mL (0.2 %) injection (NAROPIN) - peripheral nerve block 40 mL - 03/08/2023 10:14:00 AM SIGNATURE: Peter Gilliland MD PATIENT NAME: Russ Mclaughlin DATE: March 08, 2023 TIME: 10:41 AM CSN: [id number] [facility] 03-07-2023 Note HNO ID: [id number] Author: Padmini Varela PA-C Service: ? Author Type: Physician [employer] Coating Machine Operator Type: Progress Notes Filed: 03/07/2023 8:52 AM Note Text: Notes reviewed. Rebuttal completed on patient's behalf. Prior notes updated with necessary information and requested conservative measures failed. Faxed to [facility] by marketing secretary March 07, 2023. I spent a total of 25 minutes on the date of the service which included completing clinical documentation, obtaining and/or reviewing separately obtained history, and care coordination (not separately reported). Padmini Varela PA-C [facility] 03-07-2023 History of Presen t illness Narrative Notes reviewed. Rebuttal completed on patient's behalf. Prior notes updated with necessary information and requested conservative measures failed. Faxed to [facility] by marketing secretary March 07, 2023. I spent a total of 25 minutes on the date of the service which included completing clinical documentation, obtaining and/or reviewing separately obtained history, and care coordination (not separately reported). Padmini Varela PA-C documented in this encounter [facility] 02-18-2023 Note HNO ID: [id number] Author: Padmini Varela PA-C Service: ? Author Type: Physician Carbon Coating Machine Operator Type: Progress Notes Filed: 03/07/2023 8:50 AM Note Text: February 18, 2023 10:13 AM HPI: Russ Mclaughlin is a 37 year old male who presents today for right knee MRI review. History as below is unchanged. Patient presents today with right knee pain. He states about 4 weeks ago he was walking/jogging at work and his right knee popped, started to feel better so went to play basketball where his right knee then swelled up. He notes his knee cap pops out of place frequently and swells up. Also notes a history of similar left knee problems with knee cap popping out of place and swelling. Additionally states he's been to the ER 4 times for his patellar dislocations. Overall notes bilateral patellar instability. Would like to address right knee first, then left knee in the future. He has failed [id number] anti-inflammatories, Tylenol, ice, rest, activity modifications, J bracing, and physician guided attempts at home exercise program over the last 4 weeks. He reports continued near daily right knee predominant patellar instability and dislocation events. CDI 1.0. TT-TG 7.0. Diagnosis: Patellar instability of right knee (primary encounter diagnosis) Acute pain of right knee Assessment/Plan: At this time we discussed risks, benefits, and alternatives and patient would like to proceed with right knee arthroscopy, chondroplasty, and partial lateral meniscectomy as indicated. Medial patellofemoral ligament reconstruction with semitendinosis allograft given his recurrent right knee prevalent patellar dislocations. Has a history of bilateral patellar instability events as above. Pain interferes with ability to remain active as well as in activities of daily living. Weight loss attempts currently limited due to pain and frequent, recurrent right knee patellar dislocation events. He currently is unable to complete formal physical therapy due to the debilitating nature of his patellar instability and he likely would not see imrpovement Dr. Patel is personally discussed the aforementioned surgical plan and is in agreement in proceeding in this fashion. Patient verbalizes clear understanding of all instructions and would like to proceed in this fashion. Pre and postoperative expectations reviewed at length. We will get him scheduled for surgery. PAIN EVALUATION 02/18/2023 0995 Pain Level: 3 Pain Location: Knee-Right Description: Aching Duration Units: Months Frequency: Intermittent Past Medical History: PAST MEDICAL HISTORY Diagnosis Date Anxiety and depression OLEG (generalized anxiety disorder) Gynecomastia History of chlamydia Marijuana use Morbid obesity (HCC) Primary hypogonadism in male PTSD (post-traumatic stress disorder) Routine or ritual circumcision Family History: FAMILY HISTORY Problem Relation Age of Onset Asthma Mother other (Lopez's palsy) Maternal Grandfather Arthritis Maternal Grandmother Breast Cancer Maternal Grandmother Diabetes Maternal Aunt Heart Maternal Aunt Diabetes Maternal Aunt Diabetes Maternal Uncle other (leukemia) Maternal Uncle other (myasthenia gravis) Maternal Uncle Anesthesia Problems No Family History Social History: Social History Tobacco Use Smoking status: Former Packs/day: 0.20 Years: 1.00 Pack years: 0.20 Types: Cigarettes Quit date: 12/02/2014 Years since quittin.2 Smokeless tobacco: Never Substance Use Topics Alcohol use: Yes Alcohol/week: 7.5 standard drinks Types: 3 Cans of Beer (12oz) per week Comment: 12 drinks per week. Drug use: Yes Frequency: 15.0 times per week Types: Marijuana Comment: medical marijuana Medications: tretinoin (RETIN-A) 0.025 % topical cream Apply a pea size amount to acne prone areas every other night for 2 weeks then increase to daily as tolerated (Patient not taking: No sig reported) Benzoyl Peroxide 5 % external wash Wash affected skin once daily (Patient not taking: Reported on 02/28/2023) Allergies: ALLERGIES Allergen Reactions Latex Hives A AND D Ointment [Oth* Narcotics [Opioids * Vomiting Percocet [Oxycodone* Intolerance, Other: See Comments Vicodin [Hydrocodon* Intolerance, Vomiting Physical Exam: Physical exam unchanged except as bolded. Full extension, 130 degree flexion. No real effusion. Eufemia test negative. Medial joint line tenderness. Pain in medial aspect of patella. Positive apprehension. Patella has 3 gradients of glide. Papi test negative. Recurrent instability episodes on the right and left knees. Left knee in similar findigs as right. 3 quadrants of patellar glide. Positive apprehension Imaging: I personally reviewed and interpreted the most recent imaging of the right knee. Plain Radiographs of the right knee were reviewed and discussed with patient. XR 01/17 4V: Images were reviewe (more content not included)... [facility] 02-18-2023 History of Presen t illness Narrative February 18, 2023 10:13 AM HPI: Russ Mclaughlin is a 37 year old male who presents today for right knee MRI review. History as below is unchanged. Patient presents today with right knee pain. He states about 4 weeks ago he was walking/jogging at work and his right knee popped, started to feel better so went to play basketball where his right knee then swelled up. He notes his knee cap pops out of place frequently and swells up. Also notes a history of similar left knee problems with knee cap popping out of place and swelling. Additionally states he's been to the ER 4 times for his patellar dislocations. Overall notes bilateral patellar instability. Would like to address right knee first, then left knee in the future. He has failed shzb-icd-lumwiat anti-inflammatories, Tylenol, ice, rest, activity modifications, J bracing, and physician guided attempts at home exercise program over the last 4 weeks. He reports continued near daily right knee predominant patellar instability and dislocation events. CDI 1.0. TT-TG 7.0. Diagnosis: Patellar instability of right knee (primary encounter diagnosis) Acute pain of right knee Assessment/Plan: At this time we discussed risks, benefits, and alternatives and patient would like to proceed with right knee arthroscopy, chondroplasty, and partial lateral meniscectomy as indicated. Medial patellofemoral ligament reconstruction with semitendinosis allograft given his recurrent right knee prevalent patellar dislocations. Has a history of bilateral patellar instability events as above. Pain interferes with ability to remain active as well as in activities of daily living. Weight loss attempts currently limited due to pain and frequent, recurrent right knee patellar dislocation events. He currently is unable to complete formal physical therapy due to the debilitating nature of his patellar instability and he likely would not see imrpovement Dr. Patel is personally discussed the aforementioned surgical plan and is in agreement in proceeding in this fashion. Patient verbalizes clear understanding of all instructions and would like to proceed in this fashion. Pre and postoperative expectations reviewed at length. We will get him scheduled for surgery. PAIN EVALUATION 02/18/2023 0949 Pain Level: 3 Pain Location: Knee-Right Description: Aching Duration Units: Months Frequency: Intermittent Past Medical History: PAST MEDICAL HISTORY Diagnosis Date Anxiety and depression OLEG (generalized anxiety disorder) Gynecomastia History of chlamydia Marijuana use Morbid obesity (HCC) Primary hypogonadism in male PTSD (post-traumatic stress disorder) Routine or ritual circumcision Family History: FAMILY HISTORY Problem Relation Age of Onset Asthma Mother other (Lopez's palsy) Maternal Grandfather Arthritis Maternal Grandmother Breast Cancer Maternal Grandmother Diabetes Maternal Aunt Heart Maternal Aunt Diabetes Maternal Aunt Diabetes Maternal Uncle other (leukemia) Maternal Uncle other (myasthenia gravis) Maternal Uncle Anesthesia Problems No Family History Social History: Social History Tobacco Use Smoking status: Former Packs/day: 0.20 Years: 1.00 Pack years: 0.20 Types: Cigarettes Quit date: 12/02/2014 Years since quittin.2 Smokeless tobacco: Never Substance Use Topics Alcohol use: Yes Alcohol/week: 7.5 standard drinks Types: 3 Cans of Beer (12oz) per week Comment: 12 drinks per week. Drug use: Yes Frequency: 15.0 times per week Types: Marijuana Comment: medical marijuana Medications: tretinoin (RETIN-A) 0.025 % topical cream Apply a pea size amount to acne prone areas every other night for 2 weeks then increase to daily as tolerated (Patient not taking: No sig reported) Benzoyl Peroxide 5 % external wash Wash affected skin once daily (Patient not taking: Reported on 02/28/2023) Allergies: ALLERGIES Allergen Reactions Latex Hives A & D Ointment [Oth* Narcotics [Opioids * Vomiting Percocet [Oxycodone* Intolerance, Other: See Comments Vicodin [Hydrocodon* Intolerance, Vomiting Physical Exam: Physical exam unchanged except as bolded. Full extension, 130 degree flexion. No real effusion. Eufemia test negative. Medial joint line tenderness. Pain in medial aspect of patella. Positive apprehension. Patella has 3 gradients of glide. Papi test negative. Recurrent instability episodes on the right and left knees. Left knee in similar findigs as right. 3 quadrants of patellar glide. Positive apprehension Imaging: I personally reviewed and interpreted the most recent imaging of the right knee. Plain Radiographs of the right knee were reviewed and discussed with patient. XR 01/17 4V: Images were reviewed in the office today. Interpretation of the performed imaging is Xrays reveal no sig arthritic changes, trochlear groove is well maintained, CDI is 1.0 Per Radiologist Report - 01/17/2023 2:57 PM - Radiology, [place] In Impression IMPRESSION: Joint effusion of the right knee. No acute fracture seen. Special Client Bus Driver: BERNARDA Transcribe Date/Time: Jan 17 2023 2:51P Dictated by : NICOLETTE DYKES MD MRI right knee 02/11/23 radiologist report RESULT: MENISCI: Medial Meniscus: Intact. Lateral Meniscus: Complex tear in the posterior horn and body in the region of prior tear with progression LIGAMENTS: ACL: Intact PCL: Intact MCL: Intact LCL Complex: Intact CARTILAGE: Medial Femoral Condyle: Normal Medial Tibial Plateau: Normal Lateral Femoral Condyle: Small areas(s) of predominantly low grade (less than 50% thickness) cartilage loss and or fissuring with smaller area(s) of high grade (greater than 50% thickness) cartilage loss and or fissuring progressed from prior Lateral Tibial Plateau: Small areas(s) of predominantly low grade (less than 50% thickness) cartilage loss and or fissuring with smaller area(s) of high grade (greater than 50% thickness) cartilage loss and or fissuring progressed from prior Patella: Normal Trochlea: Single high grade (greater than 50% thickness) cartilage fissure TENDONS: The distal quadriceps and patellar tendons are intact. The popliteus tendon is intact. BONES AND MARROW: No evidence of fracture or bone marrow replacing process. MUSCLES: Muscle bulk and signal intensity are normal. JOINT FLUID AND SYNOVIUM: Moderate joint effusion. No synovitis. No Hill's cyst. 5 mm joint body anterior to the posterior cruciate (5:17) OTHER: No other significant abnormality identified. Localizer images: No additional findings. Review of Systems: Constitutional: Any recent fevers? No Cardiovascular: Any chest pain? No Respiratory: Any shortness or breath? No Gastrointestinal: Any abdominal discomfort? No Integumentary: Any recent skin changes or rashes? No Neurologic: Any numbness or tingling? See Above Endocrine: Any diagnosis of diabetes? No Hematologic: Any recent bleeding episodes? No I spent a total of 45 minutes on the date of the service which included preparing to see the patient, [id number] patient care, completing clinical documentation, obtaining and/or reviewing separately obtained history, performing a medically appropriate examination, counseling and educating the patient/family/caregiver, ordering medications, tests, or procedures, independently interpreting results (not separately reported), communicating results to the patient/family/caregiver and care coordination (not separately reported). ELVIRA Coffey DR., MD HAS PERSONALLY REVIEWED THE PLAN OF CARE, IMAGING, AND PERSONALLY DISCUSSED THE ABOVE WITH PATIENT ON THE DATE OF SERVICE INCLUDING RISKS, BENEFITS, AND ALTERNATIVES. HE HAS SIGNED OFF ON THE PLAN OF CARE AND IS IN AGREEMENT WITH THE PLAN DOCUMENTED. Date: February 18, 2023 Time: 10:13 AM documented in this encounter [facility] 02-11-2023 Note HNO ID: [id number] Author: RT Boris(Della) Service: Radiology Author Type: Channel Sales Director Type: Progress Notes Filed: 02/11/2023 7:39 AM Note Text: Radiology Service Progress Note PATIENT NAME: Russ Mclaughlin DATE OF SERVICE: February 11, 2023 TIME: 7:35 AM PATIENT IDENTITY VERIFICATION COMPLETED USING TWO (2) IDENTIFIERS: Name and Date of confirmed by patient verbally. FALL SCREENING: Has the patient had 2 falls in the last year or 1 fall with injury or currently using an Ambulatory Assistive Device (Walker, Cane, Wheelchair, Crutches, etc.)? No PATIENT GENDER DATA: Male PATIENT RELEVANT IMPLANT DATA REVIEWED: Yes RADIOLOGY DEPARTMENT: MR; Exam(s) Completed: Lower MSK: Knee, right Metallic foreign body artifact present in lower leg. Patient was closely monitored and scanned at low SHABNAM as a safety precaution. No heating issues reported. PERIPHERAL IV DATA: Not applicable SIGNED BY: RT Boris(R) February 11, 2023 7:35 AM [facility] 02-11-2023 History of Presen t illness Narrative Radiology Service Progress Note PATIENT NAME: Russ Mclaughlin DATE OF SERVICE: February 11, 2023 TIME: 7:35 AM PATIENT IDENTITY VERIFICATION COMPLETED USING TWO (2) IDENTIFIERS: Name and Date of confirmed by patient verbally. FALL SCREENING: Has the patient had 2 falls in the last year or 1 fall with injury or currently using an Ambulatory Assistive Device (Walker, Cane, Wheelchair, Crutches, etc.)? No PATIENT GENDER DATA: Male PATIENT RELEVANT IMPLANT DATA REVIEWED: Yes RADIOLOGY DEPARTMENT: MR; Exam(s) Completed: Lower MSK: Knee, right Metallic foreign body artifact present in lower leg. Patient was closely monitored and scanned at low SHABNAM as a safety precaution. No heating issues reported. PERIPHERAL IV DATA: Not applicable SIGNED BY: RT Boris(R) February 11, 2023 7:35 AM documented in this encounter [facility] 02-03-2023 Note HNO ID: [id number] Author: Maria Eugenia Enamorado APRN.FLOUR TESTER Service: ? Author Type: Nurse Practitioner Type: Progress Notes Filed: 02/03/2023 9:03 AM Note Text: CC: Patient presents with: Diarrhea: Diarrhea, fever and nausea x 6 days HPI: Russ Mclaughlin is a 37 year old male who presents to the office with complaint of fever for a few days. Symptoms are improving Associated symptoms includes nausea and vomiting . Denies ear pain and cough. Treatments tried include nothing so far. with no relief of symptoms. Sick contacts: unknown. History of asthma, frequent episodes of bronchitis, chronic bronchitis, bronchiectasis or COPD: No Smoker: No Seasonal/environmental allergies: No The ROS is otherwise negative. The patient's pmh, medications, allergies, and past visits are reviewed. PHYSICAL EXAM: BP 128/80 Pulse 73 Temp 36.6 ?C (97.8 ?F) (Tympanic) Resp 16 Wt 118.7 kg (261 lb 9.6 oz) SpO2 95% BMI 34.51 kg/m? General appearance: alert, cooperative, pleasant, in no acute distress Head: Normocephalic Eyes: EOM's intact, conjunctiva pink and moist, no icterus, sclera white, non-injected Heart: Negative. RRR without obvious murmur, gallop, or rubs. No ectopy. Lungs: clear to auscultation, without rales or wheeze, good air exchange Abdomen: soft non tender bowel sounds normal PAST MEDICAL HISTORY Diagnosis Date Anxiety and depression OLEG (generalized anxiety disorder) Gynecomastia History of chlamydia Marijuana use Morbid obesity (HCC) Primary hypogonadism in male PTSD (post-traumatic stress disorder) Routine or ritual circumcision PAST SURGICAL HISTORY Procedure Laterality Date CIRCUMCISION W/CLAMP/OTH DEV W/BLOCK OTHER SURGICAL HISTORY (PLEASE SPECIFY) HX 6 cysts removed from chest, [facility] ALLERGIES Latex, A AND D Ointment [Other], Narcotics [Opioids - Morphine Analogues], Percocet [Oxycodone-Acetaminophen], and Vicodin [Hydrocodone-Acetaminophen] MEDICATIONS Benzoyl Peroxide 5 % external wash Wash affected skin once daily ondansetron orally disintegrating (ZOFRAN ODT) 4 mg disintegrating tablet Take 1 tablet by mouth every 8 hours as needed for nausea/vomiting for up to 7 days. tretinoin (RETIN-A) 0.025 % topical cream Apply a pea size amount to acne prone areas every other night for 2 weeks then increase to daily as tolerated (Patient not taking: Reported on 01/17/2023) albuterol HFA (VENTOLIN HFA) 90 mcg/actuation inhaler Inhale 2 Puffs as instructed every 4 hours as needed for Wheezing/Shortness of Breath. (Patient not taking: Reported on 11/10/2021 ) FAMILY HISTORY Problem Relation Age of Onset Asthma Mother Arthritis Maternal Grandmother Breast Cancer Maternal Grandmother other (Lopez's palsy) Maternal Grandfather Diabetes Maternal Aunt Heart Maternal Aunt Diabetes Maternal Aunt Diabetes Maternal Uncle other (leukemia) Maternal Uncle other (myasthenia gravis) Maternal Uncle Social History Tobacco Use Smoking status: Former Packs/day: 0.20 Years: 1.00 Pack years: 0.20 Types: Cigarettes Quit date: 12/02/2014 Years since quittin.1 Smokeless tobacco: Never Substance Use Topics Alcohol use: Yes Alcohol/week: 7.5 standard drinks Types: 3 Cans of Beer (12oz) per week Drug use: Yes Frequency: 15.0 times per week Types: Marijuana Comment: medical ASSESSMENT/PLAN: 1. Nausea - ICD9: 787.02, ICD10: R11.0 - ONDANSETRON 4 MG DISINTEGRATING TABLET No testing at this time due to some improvement. Prescription instructions reviewed with patient as applicable. Potential red flag symptoms discussed with the patient. Reviewed appropriate action plan to take if red flag symptoms occur. Patient agreeable to treatment plan. Maria Eugenia Enamorado APRN.[facility] 02-03-2023 History of Presen t illness Narrative CC: Patient presents with: Diarrhea: Diarrhea, fever and nausea x 6 days HPI: Russ Mclaughlin is a 37 year old male who presents to the office with complaint of fever for a few days. Symptoms are improving Associated symptoms includes nausea and vomiting . Denies ear pain and cough. Treatments tried include nothing so far. with no relief of symptoms. Sick contacts: unknown. History of asthma, frequent episodes of bronchitis, chronic bronchitis, bronchiectasis or COPD: No Smoker: No Seasonal/environmental allergies: No The ROS is otherwise negative. The patient's pmh, medications, allergies, and past visits are reviewed. PHYSICAL EXAM: BP 128/80 Pulse 73 Temp 36.6 C (97.8 F) (Tympanic) Resp 16 Wt 118.7 kg (261 lb 9.6 oz) SpO2 95% BMI 34.51 kg/m General appearance: alert, cooperative, pleasant, in no acute distress Head: Normocephalic Eyes: EOM's intact, conjunctiva pink and moist, no icterus, sclera white, non-injected Heart: Negative. RRR without obvious murmur, gallop, or rubs. No ectopy. Lungs: clear to auscultation, without rales or wheeze, good air exchange Abdomen: soft non tender bowel sounds normal PAST MEDICAL HISTORY Diagnosis Date Anxiety and depression OLEG (generalized anxiety disorder) Gynecomastia History of chlamydia Marijuana use Morbid obesity (HCC) Primary hypogonadism in male PTSD (post-traumatic stress disorder) Routine or ritual circumcision PAST SURGICAL HISTORY Procedure Laterality Date CIRCUMCISION W/CLAMP/OTH DEV W/BLOCK OTHER SURGICAL HISTORY (PLEASE SPECIFY) HX 6 cysts removed from chest, [facility] ALLERGIES Latex, A & D Ointment [Other], Narcotics [Opioids - Morphine Analogues], Percocet [Oxycodone-Acetaminophen], and Vicodin [Hydrocodone-Acetaminophen] MEDICATIONS Benzoyl Peroxide 5 % external wash Wash affected skin once daily ondansetron orally disintegrating (ZOFRAN ODT) 4 mg disintegrating tablet Take 1 tablet by mouth every 8 hours as needed for nausea/vomiting for up to 7 days. tretinoin (RETIN-A) 0.025 % topical cream Apply a pea size amount to acne prone areas every other night for 2 weeks then increase to daily as tolerated (Patient not taking: Reported on 01/17/2023) albuterol HFA (VENTOLIN HFA) 90 mcg/actuation inhaler Inhale 2 Puffs as instructed every 4 hours as needed for Wheezing/Shortness of Breath. (Patient not taking: Reported on 11/10/2021 ) FAMILY HISTORY Problem Relation Age of Onset Asthma Mother Arthritis Maternal Grandmother Breast Cancer Maternal Grandmother other (Lopez's palsy) Maternal Grandfather Diabetes Maternal Aunt Heart Maternal Aunt Diabetes Maternal Aunt Diabetes Maternal Uncle other (leukemia) Maternal Uncle other (myasthenia gravis) Maternal Uncle Social History Tobacco Use Smoking status: Former Packs/day: 0.20 Years: 1.00 Pack years: 0.20 Types: Cigarettes Quit date: 12/02/2014 Years since quittin.1 Smokeless tobacco: Never Substance Use Topics Alcohol use: Yes Alcohol/week: 7.5 standard drinks Types: 3 Cans of Beer (12oz) per week Drug use: Yes Frequency: 15.0 times per week Types: Marijuana Comment: medical ASSESSMENT/PLAN: 1. Nausea - ICD9: 787.02, ICD10: R11.0 - ONDANSETRON 4 MG DISINTEGRATING TABLET No testing at this time due to some improvement. Prescription instructions reviewed with patient as applicable. Potential red flag symptoms discussed with the patient. Reviewed appropriate action plan to take if red flag symptoms occur. Patient agreeable to treatment plan. Maria Eugenia Enamorado APRN.CNP documented in this encounter [facility] 01-28-2023 Note HNO ID: [id number] Author: Prasanth Patel MD Service: ? Author Type: Physician Type: Progress Notes Filed: 01/28/2023 12:26 PM Note Text: January 28, 2023 HPI: Russ Mclaughlin is a 37 year old male with the presenting complaint of New of the Left Knee and New of the Right Knee. Russ reports no pain this visit (0 on the pain scale). Most recent knee imaging was completed on 01/17/2023 (XR KNEE GENERAL 4V AP BOTH/PA BOTH/LAT/MERC RIGHT) . Attached is imaging for the order. In the past (based on all medication history on file), Russ has tried the following anti-inflammatory medications (not necessarily for this reason for visit): ibuprofen, ketorolac tromethamine, methylprednisolone, triamcinolone acetonide. Last XR Knee - Impression Only XR KNEE GENERAL 4V AP BOTH/PA BOTH/LAT/MERC RIGHT Exam End: 01/17/2023 2:43 PM (Final result) Impression: IMPRESSION: Joint effusion of the right knee. No acute fracture seen. Special Client Bus Driver: BERNARDA Transcribe Date/Time: Jan 17 2023 2:51P Dictated by : NICOLETTE DYKES MD ... Last MRI Knee - Impression Only MRI KNEE WWO CONTRAST RT Collected: 04/29/2008 11:37 AM (Final result) Patient presents today with right knee pain. He states about 4 weeks ago he was walking/jogging at work and his right knee popped, started to feel better so went to play basketball where his right knee then swelled up. He notes his knee cap pops out of place frequently and swells up. Also notes a history of similar left knee problems with knee cap popping out of place and swelling. Additionally states he's been to the ER 4 times for knee caps popping out. Overall notes bilateral knee cap instability. Would like to address right knee first, then left knee in the future. PAIN EVALUATION 01/28/2023 1012 Pain Level: 0 Pain Location: Knee-Right Duration Units: Years Frequency: Intermittent Past Medical History: PAST MEDICAL HISTORY Diagnosis Date Anxiety and depression OLEG (generalized anxiety disorder) Gynecomastia History of chlamydia Marijuana use Morbid obesity (HCC) Primary hypogonadism in male PTSD (post-traumatic stress disorder) Routine or ritual circumcision Family History: FAMILY HISTORY Problem Relation Age of Onset Asthma Mother Arthritis Maternal Grandmother Breast Cancer Maternal Grandmother other (Lopez's palsy) Maternal Grandfather Diabetes Maternal Aunt Heart Maternal Aunt Diabetes Maternal Aunt Diabetes Maternal Uncle other (leukemia) Maternal Uncle other (myasthenia gravis) Maternal Uncle Social History: Social History Tobacco Use Smoking status: Former Packs/day: 0.20 Years: 1.00 Pack years: 0.20 Types: Cigarettes Quit date: 12/02/2014 Years since quittin.1 Smokeless tobacco: Never Substance Use Topics Alcohol use: Yes Alcohol/week: 7.5 standard drinks Types: 3 Cans of Beer (12oz) per week Drug use: Yes Frequency: 15.0 times per week Types: Marijuana Comment: medical Medications: tretinoin (RETIN-A) 0.025 % topical cream Apply a pea size amount to acne prone areas every other night for 2 weeks then increase to daily as tolerated (Patient not taking: Reported on 01/17/2023) ondansetron orally disintegrating (ZOFRAN ODT) 4 mg disintegrating tablet Take 1 tablet by mouth every 6 hours as needed for nausea/vomiting. (Patient not taking: Reported on 01/17/2023) albuterol HFA (VENTOLIN HFA) 90 mcg/actuation inhaler Inhale 2 Puffs as instructed every 4 hours as needed for Wheezing/Shortness of Breath. (Patient not taking: Reported on 11/10/2021 ) Benzoyl Peroxide 5 % external wash Wash affected skin once daily Allergies: ALLERGIES Allergen Reactions Latex Hives A AND D Ointment [Oth* Narcotics [Opioids * Vomiting Percocet [Oxycodone* Intolerance, Other: See Comments Vicodin [Hydrocodon* Intolerance, Vomiting Physical Exam: Full extension, 130 degree flexion. No real effusion. Eufemia test negative. Medial joint line tenderness. Pain in medial aspect of patella. Positive apprehension. Patella has 3 gradients of glide. Papi test negative. Recurrent instability episodes on the right and left knees. Left knee in similar findigs as right. 3 quadrants of patellar glide. Positive apprehension Imaging: Images were reviewed in the office today. Interpretation of the performed imaging is Xrays reveal no sig arthritic changes, trochlear groove is well maintained, CDI is 1.0 Assessment/Plan: Will get MRI on right knee at this time to further assess surgical plan for right knee first, then subsequently address left knee surgically for the same issue after the right is healing. Will see back once complete. Diagnosis: Acute pain of right knee Patellar instability of right knee (primary encounter diagnosis) Patellar instability of left knee Acute pain of left knee Prasanth Patel MD [facility] 01-18-2023 Miscellaneous Notes ANGI left instructing patient to return call for results, will also send letter to listed address. Patsy Price MA Left message for patient to return call for results and recommendations.Denise Stein LPN Please call and let patient know his x-ray showed no bony abnormalities. He does have some swelling of the joint otherwise. Follow-up with orthopedics and continue plan as discussed at visit. documented in this encounter [facility] 01-17-2023 Note HNO ID: [id number] Author: Jb Torrez APRN.FLOUR TESTER Service: ? Author Type: Nurse Practitioner Type: Progress Notes Filed: 01/17/2023 2:54 PM Note Text: Subjective HPI HPI Russ Mclaughlin is a 37 year old male who presents today for CC of right ear lobe infection. This started 2 days ago. Has tried poking it. Symptoms are worsened by nothing. Risk factors hx of cyst that becomes infected, seen derm, unable to remove. [place] pop in right knee 3 weeks ago, swollen since. Tried ice and compression for relief. Denies numbness/tingling of right lower extremity. .Patient presents with: Ear Problem: Right earlobe is swollen x 2 days and right knee hurts x 3 weeks PAST MEDICAL HISTORY Diagnosis Date Anxiety and depression OLEG (generalized anxiety disorder) Gynecomastia History of chlamydia Marijuana use Morbid obesity (HCC) Primary hypogonadism in male PTSD (post-traumatic stress disorder) Routine or ritual circumcision PAST SURGICAL HISTORY Procedure Laterality Date CIRCUMCISION W/CLAMP/OTH DEV W/BLOCK OTHER SURGICAL HISTORY (PLEASE SPECIFY) HX 6 cysts removed from chest, [facility] ALLERGIES Latex, A AND D Ointment [Other], Narcotics [Opioids - Morphine Analogues], Percocet [Oxycodone-Acetaminophen], and Vicodin [Hydrocodone-Acetaminophen] MEDICATIONS Benzoyl Peroxide 5 % external wash Wash affected skin once daily doxycycline monohydrate 100 mg tablet Take 1 tablet by mouth twice daily for 7 days. mupirocin (BACTROBAN) 2 % ointment Apply to affected area three times daily for 10 days. tretinoin (RETIN-A) 0.025 % topical cream Apply a pea size amount to acne prone areas every other night for 2 weeks then increase to daily as tolerated (Patient not taking: Reported on 01/17/2023) ondansetron orally disintegrating (ZOFRAN ODT) 4 mg disintegrating tablet Take 1 tablet by mouth every 6 hours as needed for nausea/vomiting. (Patient not taking: Reported on 01/17/2023) albuterol HFA (VENTOLIN HFA) 90 mcg/actuation inhaler Inhale 2 Puffs as instructed every 4 hours as needed for Wheezing/Shortness of Breath. (Patient not taking: Reported on 11/10/2021 ) risperiDONE (RISPERDAL) 0.5 mg tablet Take 1 tablet by mouth twice daily. buPROPion XL (WELLBUTRIN XL) 150 mg 24 hr tablet Take 1 tablet by mouth once daily. FAMILY HISTORY Problem Relation Age of Onset Asthma Mother Arthritis Maternal Grandmother Breast Cancer Maternal Grandmother other (Lopez's palsy) Maternal Grandfather Diabetes Maternal Aunt Heart Maternal Aunt Diabetes Maternal Aunt Diabetes Maternal Uncle other (leukemia) Maternal Uncle other (myasthenia gravis) Maternal Uncle Social History Tobacco Use Smoking status: Former Packs/day: 0.20 Years: 1.00 Pack years: 0.20 Types: Cigarettes Quit date: 12/02/2014 Years since quittin.1 Smokeless tobacco: Never Substance Use Topics Alcohol use: Yes Alcohol/week: 7.5 standard drinks Types: 3 Cans of Beer (12oz) per week Drug use: Yes Frequency: 15.0 times per week Types: Marijuana Comment: medical Review of Systems Constitutional: Positive for fever. Objective Blood pressure 122/78, pulse 62, temperature 36.2 ?C (97.2 ?F), temperature source Tympanic, resp. rate 16, weight 118.1 kg (260 lb 6.4 oz), SpO2 97 %. Physical Exam Constitutional: General: He is not in acute distress. Appearance: He is not toxic-appearing or diaphoretic. HENT: Head: Normocephalic and atraumatic. Ears: Pulmonary: Effort: Pulmonary effort is normal. No accessory muscle usage or respiratory distress. Musculoskeletal: Right knee: Swelling present. No deformity, effusion, erythema, ecchymosis or lacerations. Decreased range of motion. Tenderness present over the lateral joint line. No LCL laxity or MCL laxity. Left knee: No LCL laxity or MCL laxity. Neurological: Mental Status: He is alert and oriented to person, place, and time. ASSESSMENT/PLAN: 1. Acute pain of right knee - ICD9: 719.46, ICD10: M25.561 (primary diagnosis) Concerns with chronic swelling and feeling of bursting Nsaids discussed - XR KNEE GENERAL 4V AP BOTH/PA BOTH/LAT/MERC RIGHT - CONSULT TO ORTHOPAEDICS 2. Infection of right ear lobe - ICD9: 380.10, ICD10: H60.391 Start doxy F/u for continued/worsening s/s. - DOXYCYCLINE MONOHYDRATE 100 MG TABLET - MUPIROCIN 2 % TOPICAL OINTMENT Jb Torrez APRN.[facility] 01-17-2023 Note HNO ID: [id number] Author: RT Ninfa(R) Service: ? Author Type: Channel Sales Director Type: Progress Notes Filed: 01/17/2023 2:44 PM Note Text: Radiology Service Progress Note PATIENT NAME: Russ Mclaughlin DATE OF SERVICE: January 17, 2023 TIME: 2:29 PM PATIENT IDENTITY VERIFICATION COMPLETED USING TWO (2) IDENTIFIERS: Name and Date of confirmed by patient verbally. FALL SCREENING: Has the patient had 2 falls in the last year or 1 fall with injury or currently using an Ambulatory Assistive Device (Walker, Cane, Wheelchair, Crutches, etc.)? No PATIENT GENDER DATA: Male PATIENT RELEVANT IMPLANT DATA REVIEWED: Yes RADIOLOGY DEPARTMENT: General X-ray: Exam(s) Completed: Lower Extremity X-Ray(s): Knee, AP / Lat / Tunne / Merchant Right PERIPHERAL IV DATA: Not applicable SIGNED BY: RT Ninfa(R) January 17, 2023 2:29 PM [facility] 01-17-2023 History of Presen t illness Narrative Subjective HPI HPI Russ Mclaughlin is a 37 year old male who presents today for CC of right ear lobe infection. This started 2 days ago. Has tried poking it. Symptoms are worsened by nothing. Risk factors hx of cyst that becomes infected, seen derm, unable to remove. [place] pop in right knee 3 weeks ago, swollen since. Tried ice and compression for relief. Denies numbness/tingling of right lower extremity. .Patient presents with: Ear Problem: Right earlobe is swollen x 2 days and right knee hurts x 3 weeks PAST MEDICAL HISTORY Diagnosis Date Anxiety and depression OLEG (generalized anxiety disorder) Gynecomastia History of chlamydia Marijuana use Morbid obesity (HCC) Primary hypogonadism in male PTSD (post-traumatic stress disorder) Routine or ritual circumcision PAST SURGICAL HISTORY Procedure Laterality Date CIRCUMCISION W/CLAMP/OTH DEV W/BLOCK OTHER SURGICAL HISTORY (PLEASE SPECIFY) HX 6 cysts removed from chest, [facility] ALLERGIES Latex, A & D Ointment [Other], Narcotics [Opioids - Morphine Analogues], Percocet [Oxycodone-Acetaminophen], and Vicodin [Hydrocodone-Acetaminophen] MEDICATIONS Benzoyl Peroxide 5 % external wash Wash affected skin once daily doxycycline monohydrate 100 mg tablet Take 1 tablet by mouth twice daily for 7 days. mupirocin (BACTROBAN) 2 % ointment Apply to affected area three times daily for 10 days. tretinoin (RETIN-A) 0.025 % topical cream Apply a pea size amount to acne prone areas every other night for 2 weeks then increase to daily as tolerated (Patient not taking: Reported on 01/17/2023) ondansetron orally disintegrating (ZOFRAN ODT) 4 mg disintegrating tablet Take 1 tablet by mouth every 6 hours as needed for nausea/vomiting. (Patient not taking: Reported on 01/17/2023) albuterol HFA (VENTOLIN HFA) 90 mcg/actuation inhaler Inhale 2 Puffs as instructed every 4 hours as needed for Wheezing/Shortness of Breath. (Patient not taking: Reported on 11/10/2021 ) risperiDONE (RISPERDAL) 0.5 mg tablet Take 1 tablet by mouth twice daily. buPROPion XL (WELLBUTRIN XL) 150 mg 24 hr tablet Take 1 tablet by mouth once daily. FAMILY HISTORY Problem Relation Age of Onset Asthma Mother Arthritis Maternal Grandmother Breast Cancer Maternal Grandmother other (Lopez's palsy) Maternal Grandfather Diabetes Maternal Aunt Heart Maternal Aunt Diabetes Maternal Aunt Diabetes Maternal Uncle other (leukemia) Maternal Uncle other (myasthenia gravis) Maternal Uncle Social History Tobacco Use Smoking status: Former Packs/day: 0.20 Years: 1.00 Pack years: 0.20 Types: Cigarettes Quit date: 12/02/2014 Years since quittin.1 Smokeless tobacco: Never Substance Use Topics Alcohol use: Yes Alcohol/week: 7.5 standard drinks Types: 3 Cans of Beer (12oz) per week Drug use: Yes Frequency: 15.0 times per week Types: Marijuana Comment: medical Review of Systems Constitutional: Positive for fever. Objective Blood pressure 122/78, pulse 62, temperature 36.2 C (97.2 F), temperature source Tympanic, resp. rate 16, weight 118.1 kg (260 lb 6.4 oz), SpO2 97 %. Physical Exam Constitutional: General: He is not in acute distress. Appearance: He is not toxic-appearing or diaphoretic. HENT: Head: Normocephalic and atraumatic. Ears: Pulmonary: Effort: Pulmonary effort is normal. No accessory muscle usage or respiratory distress. Musculoskeletal: Right knee: Swelling present. No deformity, effusion, erythema, ecchymosis or lacerations. Decreased range of motion. Tenderness present over the lateral joint line. No LCL laxity or MCL laxity. Left knee: No LCL laxity or MCL laxity. Neurological: Mental Status: He is alert and oriented to person, place, and time. ASSESSMENT/PLAN: 1. Acute pain of right knee - ICD9: 719.46, ICD10: M25.561 (primary diagnosis) Concerns with chronic swelling and feeling of bursting Nsaids discussed - XR KNEE GENERAL 4V AP BOTH/PA BOTH/LAT/MERC RIGHT - CONSULT TO ORTHOPAEDICS 2. Infection of right ear lobe - ICD9: 380.10, ICD10: H60.391 Start doxy F/u for continued/worsening s/s. - DOXYCYCLINE MONOHYDRATE 100 MG TABLET - MUPIROCIN 2 % TOPICAL OINTMENT Jb Torrez APRN.[facility] documented in this encounter [facility] documented as of this encounter (statuses as of 01/17/2023) [facility]05-[facility]2018 History of Past illness Narrative* Problem Noted Date Resolved Date Gynecomastia 04/02/2018 documented as of this encounter (statuses as of 01/18/2023) [facility] History of Past illness Narrative* Problem Noted Date Resolved Date Gynecomastia 04/02/2018 documented as of this encounter (statuses as of 02/03/2023) [facility] History of Past illness Narrative* Problem Noted Date Resolved Date Gynecomastia 04/02/2018 documented as of this encounter (statuses as of 02/21/2023) [facility] History of Past illness Narrative* Problem Noted Date Resolved Date Gynecomastia 04/02/2018 documented as of this encounter (statuses as of 03/07/2023) [facility] History of Past illness Narrative* Problem Noted Date Resolved Date Gynecomastia 04/02/2018 documented as of this encounter (statuses as of 03/07/2023) [facility] of Past [facility] Narrative* Problem Noted Date Resolved Date Gynecomastia 04/02/2018 documented as of this encounter (statuses as of 03/18/2023) [facility] of Past [facility] Narrative* Problem Noted Date Resolved Date Gynecomastia 04/02/2018 documented as of this encounter (statuses as of 03/29/2023) [facility] of Past [facility] Narrative* Problem Noted Date Resolved Date Gynecomastia 04/02/2018 documented as of this encounter (statuses as of 04/03/2023) [facility] of Past [facility] Narrative* Problem Noted Date Resolved Date Gynecomastia 04/02/2018 documented as of this encounter (statuses as of 04/09/2023) [facility] Narrative* Problem Noted Date Resolved Date Gynecomastia 04/02/2018 documented as of this encounter (statuses as of 04/16/2023) [facility] Narrative* Problem Noted Date Resolved Date Gynecomastia 04/02/2018 documented as of this encounter (statuses as of 05/10/2023) [facility] Narrative* Problem Noted Date Resolved Date Gynecomastia 04/02/2018 documented as of this encounter (statuses as of 05/02/2023) [facility] Narrative* Problem Noted Date Resolved Date Gynecomastia 04/02/2018 documented as of this encounter (statuses as of 05/02/2023) [facility] Narrative* Problem Noted Date Resolved Date Gynecomastia 04/02/2018 documented as of this encounter (statuses as of 05/03/2023) [facility] Narrative* Problem Noted Date Resolved Date Gynecomastia 04/02/2018 documented as of this encounter (statuses as of 05/08/2023) [facility] N[facility]* Problem Noted Date Resolved Date Gynecomastia 04/02/2018 documented as of this encounter (statuses as of 05/17/2023) [facility] N[facility]* Problem Noted Date Resolved Date Gynecomastia 04/02/2018 documented as of this encounter (statuses as of 05/28/2023) [facility] N[facility]* Problem Noted Date Resolved Date Gynecomastia 04/02/2018 documented as of this encounter (statuses as of 05/31/2023) [facility]* Problem Noted Date Resolved Date Gynecomastia 04/02/2018 documented as of this encounter (statuses as of 06/05/2023) [facility] N[facility]* Problem Noted Date Resolved Date Gynecomastia 04/02/2018 documented as of this encounter (statuses as of 06/07/2023) [facility] N[facility]* Problem Noted Date Diagnosed Date Resolved Date Gynecomastia 04/02/2018 documented as of this encounter (statuses as of 06/12/2023) [facility]* Problem Noted Date Diagnosed Date Resolved Date Gynecomastia 04/02/2018 documented as of this encounter (statuses as of 06/18/2023) [facility] N[facility]* Problem Noted Date Diagnosed Date Resolved Date Gynecomastia 04/02/2018 documented as of this encounter (statuses as of 10/05/2023) [facility] note* Diagnosis Acute pain of right knee- Primary Infection of right ear lobe [facility] Diagnosis Nausea- Primary Nausea alone [facility] Patellar [facility], right, initial encounter- Primary S/P orthopedic surgery, follow-up exam Follow-up examination, following other surgery Patellar dislocation, right, initial encounter [facility]* Diagnosis Patellar instability of right knee- Primary Other joint derangement, not elsewhere classified, lower leg Acute pain of right knee Acute post-operative pain- Primary Patellar dislocation, right, initial encounter [facility]* Diagnosis Acute post-operative pain- Primary Patellar dislocation, right, initial encounter- Primary Patellar dislocation, right, initial encounter [facility] Diagnosis S/P orthopedic surgery, follow-up exam- Primary Follow-up examination, following other surgery [facility] Diagnosis Patellar dislocation, right, initial encounter- Primary S/P orthopedic surgery, follow-up exam Follow-up examination, following other surgery [facility] Diagnosis Patellar dislocation, right, initial encounter- Primary S/P orthopedic surgery, follow-up exam Follow-up examination, following other surgery [facility] Diagnosis Patellar dislocation, right, initial encounter- Primary S/P orthopedic surgery, follow-up exam Follow-up examination, following other surgery [facility]* Diagnosis Chronic right shoulder pain- Primary Pain in joint, shoulder region [facility]* Diagnosis Patellar dislocation, right, initial encounter- Primary S/P orthopedic surgery, follow-up exam Follow-up examination, following other surgery [facility]* Diagnosis Patellar dislocation, right, initial encounter- Primary S/P orthopedic surgery, follow-up exam Follow-up examination, following other surgery [facility]* Diagnosis S/P orthopedic surgery, follow-up exam- Primary Follow-up examination, following other surgery Nontraumatic incomplete tear of right rotator cuff Partial tear of rotator cuff Arthritis of right acromioclavicular joint Unspecified arthropathy, shoulder region [facility] Patellar dislocation, right, initial encounter- Primary S/P orthopedic surgery, follow-up exam Follow-up examination, following other surgery [facility] Acute pain of right knee Patellar instability of right knee Other joint derangement, not elsewhere classified, lower leg documented in this encounter [facility] Summary Purpose Family History No Family History Records FoundNo Family History Records FoundNo Family History Records Found Advance Directives No Advanced Directives Records FoundNo Advanced Directives Records FoundNo Advanced Directives Records Found Reason for Referral Specialty Diagnoses / Procedures Referred By Contac t Referred To Contact Orthopedics Diagnoses Acute pain of right knee Procedures CONSULT TO ORTHOPAEDICS OFFICE/OUTPATIENT [facility] 60-74 MINUTES Jb Torrez APRN.[facility] [address] [place] [address] Referral ID Status Reason Start Date Expiration Date Visits Requested Visits Authorized [id number] Authorized PCP Requested Referral 01/17/2023 01/17/2024 1 1 Specialty Diagnoses / Procedures Referred By Contac t Referred To Contact XR IMAGING Diagnoses Acute pain of right knee Procedures XR KNEE GENERAL 4V AP BOTH/PA BOTH/LAT/MERC RIGHT RADIOLOGIC EXAM KNEE COMPLETE 4/MORE VIEWS Jb Torrez APRN.[employer] [employer] [address] [place] [address] Xr Imaging Referral ID Status Reason Start Date Expiration Date V isits Requested Visits Authorized [id number] Closed Auto-Generate d Referral 01/17/2023 02/16/2024 1 1 Specialty Diagnoses / Procedures Referred By Contact Referred To Contact [facility] Diagnoses Patellar dislocation, right, initial encounter S/P orthopedic surgery, follow-up exam Procedures CONSULT TO PHYSICAL THERAPY PHYSICAL THERAPY EVALUATION [facility] 45 MINS Padmini Varela PA-C [address] [place] [address] [facility] [address] [place] [address] Referral ID Status Reason Start Date Expiration Date Visits Requested Visits Authorized [id number] Pending Review Auto-Generat ed Referral 02/21/2023 02/20/2024 1 1 Specialty Diagnoses / Procedures Referred By Contac t Referred To Contact [facility] Diagnoses Patellar dislocation, right, initial encounter S/P orthopedic surgery, follow-up exam Procedures PT REHAB FOLLOW UP ORDER THERAPEUTIC EXERCISES RE, EA 15 MIN. Carmela Winslow, PT [address] [place] [address] [facility] [address] [place] [address] Referral ID Status Reason Start Date Expiration Date Visits Requested Visits Authorized [id number] Pending Review PCP Requested Referral Auto-Generate d Referral 05/28/2023 08/26/2023 1 1 Specialty Diagnoses / Procedures Referred By Contac t Referred To Contact MR IMAGING Diagnoses Acute pain of right knee Patellar instability of right knee Procedures MRI KNEE WO IVCON RT MRI ANY JT LOWER EXTREM W/O CONTRAST Padmini Mojica PA-C [address] [place] [address] [facility] [place] [id number] Referral ID Status Reason Start Date Expiration Date V isits Requested Visits Authorized [id number] Closed Auto-Generate d Referral 01/30/2023 03/31/2023 1 1 Additional Source Comments (unrecognized sect ion and content) No Status Records FoundNo Status Records FoundNo Status Records Found INFORMATION SOURCE (unrecogn ized section and content) DATE CREATED AUTHOR AUTHOR'S ORGANIZ ATION 03/11/[address] [facility] DATE CREATED AUTHOR AUTHOR'S ORGANIZ ATION 06/19/2023 [facility] Source Comments (unrecognize d section and content) In the event this informatio n is protected by the Federal Confidentiality of Alcohol and Drug Abuse Patient Records regulations: The Federal rules restrict any use of the information to criminally investigate or prosecute any alcohol or drug abuse patient.[facility] event this information is protected by the Federal Confidentiality of Alcohol and Drug Abuse Patient Records regulations: The Federal rules restrict any use of the information to criminally investigate or prosecute any alcohol or drug abuse patient.[facility] the event this information is protected by the Federal Confidentiality of Alcohol and Drug Abuse Patient Records regulations: The Federal rules restrict any use of the information to criminally investigate or prosecute any alcohol or drug abuse patient.[facility] the event this information is protected by the Federal Confidentiality of Alcohol and Drug Abuse Patient Records regulations: The Federal rules restrict any use of the information to criminally investigate or prosecute any alcohol or drug abuse patient.[facility] the event this information is protected by the Federal Confidentiality of Alcohol and Drug Abuse Patient Records regulations: The Federal rules restrict any use of the information to criminally investigate or prosecute any alcohol or drug abuse patient.[facility] the event this information is protected by the Federal Confidentiality of Alcohol and Drug Abuse Patient Records regulations: The Federal rules restrict any use of the information to criminally investigate or prosecute any alcohol or drug abuse patient.[facility] the event this information is protected by the Federal Confidentiality of Alcohol and Drug Abuse Patient Records regulations: The Federal rules restrict any use of the information to criminally investigate or prosecute any alcohol or drug abuse patient.[facility] the event this information is protected by the Federal Confidentiality of Alcohol and Drug Abuse Patient Records regulations: The Federal rules restrict any use of the information to criminally investigate or prosecute any alcohol or drug abuse patient.[facility] the event this information is protected by the Federal Confidentiality of Alcohol and Drug Abuse Patient Records regulations: The Federal rules restrict any use of the information to criminally investigate or prosecute any alcohol or drug abuse patient.[facility] the event this information is protected by the Federal Confidentiality of Alcohol and Drug Abuse Patient Records regulations: The Federal rules restrict any use of the information to criminally investigate or prosecute any alcohol or drug abuse patient.[facility] the event this information is protected by the Federal Confidentiality of Alcohol and Drug Abuse Patient Records regulations: The Federal rules restrict any use of the information to criminally investigate or prosecute any alcohol or drug abuse patient.[facility] the event this information is protected by the Federal Confidentiality of Alcohol and Drug Abuse Patient Records regulations: The Federal rules restrict any use of the information to criminally investigate or prosecute any alcohol or drug abuse patient.[facility] the event this information is protected by the Federal Confidentiality of Alcohol and Drug Abuse Patient Records regulations: The Federal rules restrict any use of the information to criminally investigate or prosecute any alcohol or drug abuse patient.[facility] the event this information is protected by the Federal Confidentiality of Alcohol and Drug Abuse Patient Records regulations: The Federal rules restrict any use of the information to criminally investigate or prosecute any alcohol or drug abuse patient.[facility] the event this information is protected by the Federal Confidentiality of Alcohol and Drug Abuse Patient Records regulations: The Federal rules restrict any use of the information to criminally investigate or prosecute any alcohol or drug abuse patient.[facility] the event this information is protected by the Federal Confidentiality of Alcohol and Drug Abuse Patient Records regulations: The Federal rules restrict any use of the information to criminally investigate or prosecute any alcohol or drug abuse patient.[facility] the event this information is protected by the Federal Confidentiality of Alcohol and Drug Abuse Patient Records regulations: The Federal rules restrict any use of the information to criminally investigate or prosecute any alcohol or drug abuse patient.[facility] the event this information is protected by the Federal Confidentiality of Alcohol and Drug Abuse Patient Records regulations: The Federal rules restrict any use of the information to criminally investigate or prosecute any alcohol or drug abuse patient.[facility] the event this information is protected by the Federal Confidentiality of Alcohol and Drug Abuse Patient Records regulations: The Federal rules restrict any use of the information to criminally investigate or prosecute any alcohol or drug abuse patient.[facility] the event this information is protected by the Federal Confidentiality of Alcohol and Drug Abuse Patient Records regulations: The Federal rules restrict any use of the information to criminally investigate or prosecute any alcohol or drug abuse patient.[facility] the event this information is protected by the Federal Confidentiality of Alcohol and Drug Abuse Patient Records regulations: The Federal rules restrict any use of the information to criminally investigate or prosecute any alcohol or drug abuse patient.[facility] the event this information is protected by the Federal Confidentiality of Alcohol and Drug Abuse Patient Records regulations: The Federal rules restrict any use of the information to criminally investigate or prosecute any alcohol or drug abuse patient.[facility] the event this information is protected by the Federal Confidentiality of Alcohol and Drug Abuse Patient Records regulations: The Federal rules restrict any use of the information to criminally investigate or prosecute any alcohol or drug abuse patient.[facility] the event this information is protected by the Federal Confidentiality of Alcohol and Drug Abuse Patient Records regulations: The Federal rules restrict any use of the information to criminally investigate or prosecute any alcohol or drug abuse patient.[facility] Reason for Visit (unrecogniz ed section and content) Specialty Diagnoses / Procedures Referred By Contact Referred To Contact [facility] Diagnoses Patellar dislocation, right, initial encounter S/P orthopedic surgery, follow-up exam Procedures PT REHAB FOLLOW UP ORDER THERAPEUTIC EXERCISES RE, EA 15 MIN. Padmini Varela PA-C [address] [place] [address] [facility] [place] [address] Referral ID Status Reason Start Date Expiration Date Visits Requested Visits Authorized [id number] Authorized PCP Requested Referral Auto-Generate d Referral 03/19/2023 06/18/2023 20 20 Reason Comments Ear Problem Right earlobe is swo llen x 2 days and right knee hurts x 3 weeks Reason Comments Results Reason Comments Diarrhea Diarrhea, fever and nausea x 6 days Reason Comments Established Patient Results - Mri Specialty Diagnoses / Procedures Referred By Contac t Referred To Contact Orthopedics Diagnoses Acute pain of right knee Procedures CONSULT TO ORTHOPAEDICS OFFICE/OUTPATIENT [facility] 60-74 MINUTES Jb Torrez APRN.[employer] [address] [place] [address] Referral ID Status Reason Start Date Expiration Date V isits Requested Visits Authorized [id number] Closed PCP Requested Referral 01/17/2023 01/17/2024 1 1 Reason Comments Established Patient Reason Comments Post Op Reason Comments Physical Therapy Reason Comments MRI Reason Comments PT Progress Note Specialty Diagnoses / Procedures Referred By Contact Referred To Contact [facility] Diagnoses Patellar dislocation, right, initial encounter S/P orthopedic surgery, follow-up exam Procedures PT REHAB FOLLOW UP ORDER THERAPEUTIC EXERCISES RE, EA 15 MIN. Padmini Varela PA-C [address] [place] [address] [facility] [id number] [place] [address] Reason Comments Established Patient Post Op Specialty Diagnoses / Procedures Referred By Contac t Referred To Contact [facility] Diagnoses Acute pain of right knee Patellar instability of right knee Procedures MRI KNEE WO IVCON RT MRI ANY JT LOWER EXTREM W/O CONTRAST MATRL Padmini Varela PA-C [id number] [place] [id number] Referral ID Status Reason Start Date Expiration Date V isits Requested Visits Authorized [id number] Closed Auto-Generate d Referral 01/30/2023 03/31/2023 1 1 Care Teams (unrecognized sec tion and content) Echocardiography Radiology Technologist Relationship Specialty Start Date End Date Vilma Jain MD [address] [facility] [place] [place] [address] PCP - General Internal Medicine 04/21/21 Echocardiography Radiology Technologist Relationship Specialty Start Date End Date Vilma Jain MD [address] [facility] [place] [address] PCP - General Internal Medicine 04/21/21 Echocardiography Radiology Technologist Relationship Specialty Start Date End Date Vilma Jain MD [address] [facility] [place] [place] [address] PCP - General Internal Medicine 04/21/21 Echocardiography Radiology Technologist Relationship Specialty Start Date End Date Vilma Jain MD [address] [facility] [place] [place] [address] PCP - General Internal Medicine 04/21/21 Echocardiography Radiology Technologist Relationship Specialty Start Date End Date Vilma Jain MD [address] [facility] [place] [place] [address] PCP - General Internal Medicine 04/21/21 Echocardiography Radiology Technologist Relationship Specialty Start Date End Date Vilma Jain MD [address] [facility] [place] [address] PCP - General Internal Medicine 04/21/21 Echocardiography Radiology Technologist Relationship Specialty Start Date End Date Vilma Jain MD [address] [facility] [place] [address] PCP - General Internal Medicine 04/21/21 Echocardiography Radiology Technologist Relationship Specialty Start Date End Date Vilma Jain MD [address] [facility] [place] [place] [address] PCP - General Internal Medicine 04/21/21 Echocardiography Radiology Technologist Relationship Specialty Start Date End Date Vilma Jain MD [address] [place], [place] [id number] PCP - General Internal Medicine 04/21/21 Echocardiography Radiology Technologist Relationship Specialty Start Date End Date Vilma Jain MD [address] [place], [place] [id number] PCP - General Internal Medicine 04/21/21 Echocardiography Radiology Technologist Relationship Specialty Start Date End Date Vilma Jain MD [address] [place], [place] [address] PCP - General Internal Medicine 04/21/21 Echocardiography Radiology Technologist Relationship Specialty Start Date End Date Vilma Jain MD [address] [place], [place] [address] PCP - General Internal Medicine 04/21/21 FOR RECORDS PERTAINING TO PATIENTS WHO ARE OR HAVE BEEN ENROLLED IN A CHEMICAL DEPENDENCY/SUBSTANCEABUSE PROGRAM, SOME INFORMATION MAY BE OMITTED. This clinical summary was aggregated from multiple sources. Caution should be exercised in using it in the provision of clinical care. This summary normalizes information from multiple sources, and as a consequence, information in this document may materially change the coding, format and clinical context of patient data. In addition, data may be omitted in some cases. CLINICAL DECISIONS SHOULD BE BASED ON THE PRIMARY CLINICAL RECORDS. [facility]. provides no warranty or guarantee of the accuracy or completeness of information in this document.
[2024-01-01] MEDS: hydrOXYzine PAM 25 MG Capsule 50 MG PO (06:50)
--- NOTE | 2024-01-01 07:05 | EX.ED.DYSGE1 ---
HPI History of Present Illness Chief Complaint: Hypertension Informant: patient Narrative Narrative: Patient is a 38-year-old male with no significant past medical history presenting with concern for elevated blood pressure. Patient notes that he was recently last Hema last weekend and has been eating and drinking more than normal. He developed some type of redness and swelling to his cheek and went to urgent care yesterday where he was diagnosed with possible boil. There his blood pressure was noted be elevated at 148. It was instructed that he keep an eye on his blood pressure. He get a home blood pressure cuff and has checked it yesterday and throughout the night. Blood pressure was as high as 168/120. Patient notes that he is otherwise felt normal. He notes he has had some mild nausea since returning to [place]. Does report some very mild chest tightness but thinks that he is just nervous about his blood pressure. His PCP is Dr. Escalona through [facility] but has not seen her in over a year. Denies any other complaints or concerns at this time. Denies any associate numbness or tingling. Denies any difficulty breathing. Denies any fever or chills. Notes he has had about 11 pound weight gain over the past few months. [facility] Medical History Anxiety and depression Contact with and (suspected) exposure to other viral communicable diseases COVID-19 Encounter for screening for COVID-19 Home Medications cephalexin .ROUTE 01/01/24 [History Last Taken Unknown] hydroxyzine HCl 25 mg tablet 25 mg PO TID PRN anxiety #20 tabs 01/01/24 [Rx Last Taken Unknown] Allergy/AdvReac Type Severity Reaction Status Date / Time dimethicone Allergy Hives Verified 01/01/24 05:48 [From A & D Emollient] glycerin Allergy Hives Verified 01/01/24 05:48 [From A & D Emollient] latex Allergy Hives Verified 01/01/24 05:48 stearyl alcohol Allergy Hives Verified 01/01/24 05:48 [From A & D Emollient] Opioids - Morphine Analogues AdvReac Vomiting Verified 01/01/24 05:48 Social History Smoking Status: Never smoker ROS ROS ED Constitutional Constitutional ED: Denies chills or fever(s) Eyes Eyes: Denies change in vision Cardiovascular Cardiovascular: Denies chest pain or palpitations Respiratory/Chest Respiratory/Chest: Denies cough or dyspnea Gastrointestinal Gastrointestinal: Reports nausea; Denies abdominal pain or vomiting Musculoskeletal Musculoskeletal: Denies arthralgias or myalgias Integumentary Denies rash Neurologic Neurologic: Denies headache(s), paresthesias or weakness Psychiatric Psychiatric: Reports anxiety EXAM Physical Exam Const Vital Signs: 01/01/24 05:40 01/01/24 05:45 01/01/24 05:45 Temperature 97.7 F L Temperature Source Oral Pulse Rate 61 Respiratory Rate Respiratory Pattern Normal Blood Pressure 164/93 H 149/90 H Blood Pressure Mean 116 109 Pulse Ox 98 Oxygen Delivery Method Room Air 01/01/24 07:53 Temperature Temperature Source Pulse Rate 86 Respiratory Rate 16 Respiratory Pattern Blood Pressure 157/77 H Blood Pressure Mean 103 Pulse Ox 100 Oxygen Delivery Method Positive well nourished and well developed General Appearance ED: well developed and NAD HEENT Reports moist mucous membranes Eyes PERRL and EOMs intact bilaterally Neck supple and no JVD Chest Wall inspection of chest normal and palpation of chest normal Resp normal respiratory effort and clear to auscultation bilaterally Cardio regular rate, regular rhythm and no murmurs Cardio Narrative: 2+ radial pulses bilateral GI normal to inspection, nondistended, normoactive bowel sounds Neuro oriented x3 Sensorium / Orientation: alert Motor Exam: Negative for general weakness Psych mental status grossly normal Skin no rashes or lesions noted and no wounds MDM MDM MDM Narrative Medical decision making narrative: Patient's Biba for elevated blood pressure reading at home. He is mildly hypertensive in the ER ( 164/93 and then on repeat 149/90). Patient does think he might be anxious and likely make his blood pressure elevated. Will give a dose of hydroxyzine and check an EKG for screening. He does not have any system with hypertensive emergency. He is asymptomatic at this time I do not think requires a cardiac or metabolic workup at this time. Counseled that he should keep a blood pressure log and follow-up outpatient with his primary care doctor. Counseled on healthy eating, diet and exercise as well. Patient verbalized agreement understand this plan. We be discharged home with outpatient follow-up and is given return precautions. Rhythm Strip Rhythm Strip: Sinus Rhythm Rate: 58 Ectopy: None EKG Initial EKG: Attestation: I personally reviewed and interpreted this EKG as follows: Interpretation: Sinus Bradycardia Comments: Sinus bradycardia rate of 58 bpm Normal axis Normal intervals Normal ST segments Compared to prior EKG no significant changes Prior EKG tracings: available for review Prior: Unchanged Discharge Plan Triage Chief Complaint: Hypertension ED Provider: Elif Maldonado Dx/Rx/DC Orders Clinical Impression: Elevated blood pressure reading without diagnosis of hypertension Instructions: ED Hypertension, To Be Confirmed Prescriptions: New hydroxyzine HCl 25 mg tablet 25 mg PO TID PRN (Reason: anxiety) Qty: 20 0RF No Action cephalexin .ROUTE Primary Care Provider: Vilma Jain Referrals: Vilma Jain MD [Primary Care Provider] - Activity Restrictions/Additional Instructions: Please check your blood pressure once or twice a day and keep a log. If you develop symptoms such as chest pain, difficulty breathing, severe headache or strokelike symptoms please immediately return to the emergency room. Disposition Disposition: Home, Self Care Discharge Date/Time: 01/01/24 07:56
[2024-01-01 07:53] VITALS: BP 157/77; PULSE 86; RESP 16; O2SAT 100
== END 2024-01-01 07:56 | disposition home or self-care (01) ==
PROVIDERS: Emergency Provider Emergency Medicine; PCP Internal Medicine; Visit Provider Emergency Medicine
DX: R03.0 Elevated blood-pressure reading, without diagnosis of hypertension (principal); R11.0 Nausea; Z71.82 Exercise counseling; Z86.16 Personal history of COVID-19; Z41.9 Encounter for procedure for purposes other than remedying health state, unspecified
CPT/HCPCS: 93005; 99282